=== PATIENT | male | born 1945 | race Caucasian/White ===

== ENCOUNTER → 2018-01-30 | Outpatient (CLI) | payer MEDICARE ==
[2018-01-30 14:29] LABS: HGB 16.4 gm/dL (13.0-17.5); MCH 33.6 pg (25.0-35.0); MCHC 32.1 g/dL (31.0-37.0); MCV 104.7 fL (80.0-100.0); Macrocytosis Slight; Mean Platelet Volume 7.8; Platelet Count 246 k/uL (150-450); RBC 4.87 m/uL (4.30-5.90); RDW 12.5 % (11.5-15.5); WBC 16.1 k/uL (3.8-10.6)
[2018-01-30 14:45] LABS: Anion Gap 7 mmol/L; Blood Urea Nitrogen 21 mg/dL (9-20); Carbon Dioxide 29 mmol/L (22-30); Chloride 104 mmol/L (98-107); Potassium 5.3 mmol/L (3.5-5.1); Sodium 140 mmol/L (137-145)
== END | disposition home or self-care (01) ==
LOC: LABPAT 14:00
PROVIDERS: ATTEND Internal Medicine Interventional Cardiology
DX: Z01.812 Encounter for preprocedural laboratory examination (principal); I11.0 Hypertensive heart disease with heart failure; I50.9 Heart failure, unspecified; I70.213 Atherosclerosis of native arteries of extremities with intermittent claudication, bilateral legs
CPT/HCPCS: 36415; 80051; 82565; 84520; 85027

== ENCOUNTER 2018-03-19 15:44 | Emergency (ER) | payer MEDICARE ==
[2018-03-19 15:49] VITALS: TEMP 98.1
[2018-03-19] MEDS ORDERED: LIDOCAINE/EPINEPHR/TETRACAINE 5 ML BOTTLE TOPICAL ONE (16:11)
[2018-03-19] MEDS ORDERED: SILVER NITRATE APPLICATOR 1 EACH STICK..EA. TOPICAL STA (16:22)
[2018-03-19] MEDS ORDERED: GELATIN SPONGE,ABSORB (LARGE) 1 EACH SPONGE TOPICAL STA (16:22)
[2018-03-19 17:11] LABS: Basophils % (A) 0 %; Eosinophils # (A) 0.2 k/uL (0-0.7); Eosinophils % (A) 2 %; HCT 42.7 % (39.0-53.0); HGB 14.3 gm/dL (13.0-17.5); Lymphocytes # (A) 2.3 k/uL (1.0-4.8); Lymphocytes % (A) 22 %; MCHC 33.4 g/dL (31.0-37.0); MCV 101.8 fL (80.0-100.0); Mean Platelet Volume 8.3; Monocytes # (A) 0.6 k/uL (0-1.0); Monocytes % (A) 6 %; Neutrophils # (A) 6.9 k/uL (1.3-7.7); Neutrophils % (A) 67 %; Platelet Count 220 k/uL (150-450); RBC 4.19 m/uL (4.30-5.90); RDW 12.3 % (11.5-15.5); WBC 10.3 k/uL (3.8-10.6)
[2018-03-19 17:21] LABS: Calcium 9.5 mg/dL (8.4-10.2); Total Bilirubin 0.3 mg/dL (0.2-1.3); Total Protein 6.9 g/dL (6.3-8.2)
--- NOTE | 2018-03-19 17:26 | ED ---
GI Bleed HPI - General Chief complaint: GI Bleed Stated complaint: rectal bleeding Time Seen by Provider: 03/19/18 15:53 Source: patient, RN notes reviewed, old records reviewed Mode of arrival: ambulatory Limitations: no limitations - History of Present Illness Initial comments: 72-year-old male presents emergency Department rectal bleeding for the past 2 hours. Patient reports she's had a hemorrhoid for the past few weeks. Patient has had Preparation H over the area for the past 3 days. Patient states that today he noticed some bleeding when he went to the bathroom.Patient denies any recent fever, chills, shortness of breath, chest pain, back pain, abdominal pain , nausea vomiting, numbness or tingling, dysuria or hematuria, constipation or diarrhea, headaches or visual changes, or any other current symptoms. - Related Data Home Medications Medication Instructions Recorded Confirmed Aspirin [Adult Low Dose Aspirin EC] 81 mg PO DAILY 03/19/18 03/19/18 Losartan [Cozaar] 50 mg PO DAILY 03/19/18 03/19/18 Metoprolol Tartrate [Lopressor] 12.5 mg PO BID 03/19/18 03/19/18 Naproxen Sodium [Aleve] 440 mg PO WEEKLY PRN 03/19/18 03/19/18 Simvastatin [Zocor] 80 mg PO HS 03/19/18 03/19/18 Previous Rx's Medication Instructions Recorded Hydrocortisone [Anusol-Hc] 30 gm TP BID #30 [email or web address] 03/19/18 Allergies Allergy/AdvReac Type Severity Reaction Status Date / Time meperidine [From Demerol] Allergy Nausea Verified 03/19/18 16:15 Review of Systems ROS Statement: Those systems with pertinent positive or pertinent negative responses have been documented in the HPI. ROS Other: All systems not noted in ROS Statement are negative. Past Medical History Past Medical History: Coronary Artery Disease (CAD), Hyperlipidemia, Hypertension Additional Past Medical History / Comment(s): hemorrhoids History of Any Multi-Drug Resistant Organisms: None Reported Past Surgical History: Coronary Bypass/CABG, Hernia Repair Past Psychological History: No Psychological Hx Reported Smoking Status: Current every day smoker Past Alcohol Use History: None Reported Past Drug Use History: None Reported General Exam - General Exam Comments Initial Comments: Well-appearing 72-year-old male. Limitations: no limitations General appearance: alert, in no apparent distress Head exam: Present: atraumatic, normocephalic, normal inspection Eye exam: Present: normal appearance, PERRL, EOMI. Absent: scleral icterus, conjunctival injection, periorbital swelling ENT exam: Present: normal exam, normal oropharynx, mucous membranes moist Neck exam: Present: normal inspection. Absent: tenderness, meningismus, lymphadenopathy Respiratory exam: Present: normal lung sounds bilaterally. Absent: respiratory distress, wheezes, rales, rhonchi, stridor Cardiovascular Exam: Present: regular rate, normal rhythm, normal heart sounds. Absent: systolic murmur, diastolic murmur, rubs, gallop, clicks GI/Abdominal exam: Present: soft, normal bowel sounds. Absent: distended, tenderness, guarding, rebound, rigid Rectal exam: Present: hemorrhoids (3 cm large thrombosed hemorrhoid with open area from bleeding.). Absent: normal inspection Extremities exam: Present: normal inspection, full ROM, normal capillary refill. Absent: tenderness, pedal edema, joint swelling, calf tenderness Back exam: Present: normal inspection Neurological exam: Present: alert, oriented X3, CN II-XII intact Psychiatric exam: Present: normal affect, normal mood Skin exam: Present: warm, dry, intact, normal color. Absent: rash Course Vital Signs 03/19/18 03/19/18 15:46 17:44 Temperature 98.1 F 98.1 F Pulse Rate 85 64 Respiratory 20 18 Rate Blood Pressure 156/87 129/81 O2 Sat by Pulse 96 94 L Oximetry Medical Decision Making - Medical Decision Making Is a 72-year-old male presents today with chief complaint of bleeding from rectum. Patient has a large hemorrhoid that is thrombosed. Examine the Patient with Dr. Shaver. When examined and he expressed blood from the hemorrhoid. Patient tolerated the procedure well. Hemoglobin and blood work stable. After the hemorrhoid is expressed is no further bleeding. I discussed that he may have some further slight bleeding to apply gauze over the area. Patient is discharged with Anusol cream. Given a referral for surgeon. He did state that he has not had a colonoscopy and Patient is 72 years old. Discussed that he needs follow-up with PCP in regards to maintenance testing and following up with colonoscopy. - Lab Data Result diagrams: 03/19/18 16:15 03/19/18 16:15 Lab Results 03/19/18 03/19/18 03/19/18 Range/Units 16:15 16:15 16:15 WBC 10.3 (3.8-10.6) k/uL RBC 4.19 L (4.30-5.90) m/uL Hgb 14.3 (13.0-17.5) gm/dL Hct 42.7 (39.0-53.0) % MCV 101.8 H (80.0-100.0) fL MCH 34.0 (25.0-35.0) pg MCHC 33.4 (31.0-37.0) g/dL RDW 12.3 (11.5-15.5) % Plt Count 220 (150-450) k/uL Neutrophils % 67 % Lymphocytes % 22 % Monocytes % 6 % Eosinophils % 2 % Basophils % 0 % Neutrophils # 6.9 (1.3-7.7) k/uL Lymphocytes # 2.3 (1.0-4.8) k/uL Monocytes # 0.6 (0-1.0) k/uL Eosinophils # 0.2 (0-0.7) k/uL Basophils # 0.0 (0-0.2) k/uL Sodium 141 (137-145) mmol/L Potassium 4.0 (3.5-5.1) mmol/L Chloride 109 H (98-107) mmol/L Carbon Dioxide 24 (22-30) mmol/L Anion Gap 8 mmol/L BUN 22 H (9-20) mg/dL Creatinine 1.05 (0.66-1.25) mg/dL Est GFR (CKD-EPI)AfAm 83 (>60 ml/min/1.73 sqM) Est GFR (CKD-EPI)NonAf 72 (>60 ml/min/1.73 sqM) Glucose 110 H (74-99) mg/dL Calcium 9.5 (8.4-10.2) mg/dL Total Bilirubin 0.3 (0.2-1.3) mg/dL AST 21 (17-59) U/L ALT 32 (21-72) U/L Alkaline Phosphatase 72 (38-126) U/L Total Protein 6.9 (6.3-8.2) g/dL Albumin 4.0 (3.5-5.0) g/dL Stool Occult Blood Positive (Negative) Disposition Clinical Impression: Thrombosed external hemorrhoid Disposition: HOME SELF-CARE Condition: Good Instructions: Thrombosed Hemorrhoid (ED) Additional Instructions: Patient advised to have close follow-up with primary care physician. Return to emergency department if any alarming signs or symptoms occur. Prescriptions: Hydrocortisone [Anusol-Hc] 30 gm TP BID #30 [email or web address] Is patient prescribed a controlled substance at d/c from ED?: No Referrals: Hayley White MD [Primary Care Provider] - 1-2 days Time of Disposition: 17:24
[2018-03-19 17:45] VITALS: BP 129/81; PULSE 64; RESP 18
== END 2018-03-19 17:45 | disposition home or self-care (01) ==
LOC: EC 15:44
DX: K64.5 Perianal venous thrombosis (principal); E78.5 Hyperlipidemia, unspecified; I10 Essential (primary) hypertension; I25.10 Atherosclerotic heart disease of native coronary artery without angina pectoris; F17.200 Nicotine dependence, unspecified, uncomplicated; Z88.5 Allergy status to narcotic agent; Z79.82 Long term (current) use of aspirin; Z79.899 Other long term (current) drug therapy; Z95.1 Presence of aortocoronary bypass graft
CPT/HCPCS: 36415; 80053; 82272; 85025; 99284

== ENCOUNTER 2018-03-24 13:15 | Day surgery (SDC) | payer MEDICARE ==
[2018-03-23 11:58] VITALS: BMI 28.0
[2018-03-24] MEDS ORDERED: LACTATED RINGERS 1,000 ML IV ONE (13:27)
[2018-03-24] MEDS ORDERED: LIDOCAINE 1% 20 ML VIAL (10MG/ML) FOR IV START INTRADERMA ONE (13:27)
[2018-03-24 13:38] VITALS: TEMP 96.9
[2018-03-24] MEDS ORDERED: PROPOFOL 10 MG/ML 20 ML VIAL IV ONE (15:08)
[2018-03-24 15:35] VITALS: RESP 16
--- NOTE | 2018-03-24 15:41 | P.PCN ---
Date of Procedure: 03/24/18 Procedure(s) Performed: procedure: Total colonoscopy and polypectomy. Preoperative diagnosis: Recent episode of rectal bleeding secondary to thrombosed external hemorrhoid. Postoperative diagnosis: 1. Small rectal polyp snared but no large polyps or cancer. 2. External hemorrhoid at the 5 O'clock lithotomy position with stigmata of bleeding but not actively bleeding at the time of this exam. 3. Diverticulosis with no evidence of acute diverticulitis or strictures. Preparation: HalfLytely prep. Sedation: Was provided by anesthesia. Brief clinical history: The patient is a 72-year-old male who had recent episode of rectal bleeding that proved to be related to a thrombosed external hemorrhoid. The patient went to the emergency room and received local care after it spontaneously bled. Since he had no prior colonoscopy, he was advised a colonoscopy to rule out other pathology. Procedure: With the patient on his left lateral decubitus position and after informed consent and adequate sedation, the perianal area was inspected and it did not show any fissures or fistulas. The external hemorrhoid was noted at the 5 O'clock lithotomy position with stigmata of bleeding but no active bleeding.there were no masses felt on digital rectal examination. The Olympus CFQ 160L video colonoscope was then inserted in the rectum in the usual fashion and advanced to the cecum. There was a small polyp in the rectum which I snared and retrieved by suction. No other polyps or tumors were seen. The mucosa appeared healthy. Multiple diverticular orifices were seen scattered both on the right and left side of the bowel. They were mostly small and more obvious on the right side but there was no evidence of acute diverticulitis or strictures. I retroflexed the endoscope in the rectum before the endoscope was withdrawn. The patient tolerated the procedure well. Plan: The patient was reassured. Discussed dietary measures. He will continue local care for hemorrhoids. I recommended repeat colonoscopy in 5 years. He will follow up with you as planned.
[2018-03-24 15:53] VITALS: BP 126/77; PULSE 65
== END 2018-03-24 16:10 | disposition home or self-care (01) ==
LOC: ORWHC2ENDO 13:15
DX: K57.30 Diverticulosis of large intestine without perforation or abscess without bleeding (principal); I25.10 Atherosclerotic heart disease of native coronary artery without angina pectoris; I10 Essential (primary) hypertension; E78.5 Hyperlipidemia, unspecified; Z95.1 Presence of aortocoronary bypass graft; J44.9 Chronic obstructive pulmonary disease, unspecified; F17.200 Nicotine dependence, unspecified, uncomplicated; Z79.1 Long term (current) use of non-steroidal anti-inflammatories (NSAID); Z79.82 Long term (current) use of aspirin; Z88.5 Allergy status to narcotic agent
CPT/HCPCS: 45385; J2704; 88305

== ENCOUNTER → 2018-03-24 | Outpatient (CLI) | payer MEDICARE ==
[2018-03-24 13:43] LABS: HCT 48.7 % (39.0-53.0); MCH 33.7 pg (25.0-35.0); MCHC 32.8 g/dL (31.0-37.0); MCV 102.9 fL (80.0-100.0); Macrocytosis Slight; Mean Platelet Volume 7.7; Platelet Count 253 k/uL (150-450); RBC 4.73 m/uL (4.30-5.90); RDW 12.4 % (11.5-15.5); WBC 11.7 k/uL (3.8-10.6)
[2018-03-24 13:56] LABS: Anion Gap 8 mmol/L; Blood Urea Nitrogen 18 mg/dL (9-20); Carbon Dioxide 28 mmol/L (22-30); Chloride 103 mmol/L (98-107); Potassium 5.3 mmol/L (3.5-5.1); Sodium 139 mmol/L (137-145)
== END | disposition home or self-care (01) ==
LOC: LABPAT 12:58
PROVIDERS: ATTEND Internal Medicine Interventional Cardiology
DX: Z01.812 Encounter for preprocedural laboratory examination (principal); I70.211 Atherosclerosis of native arteries of extremities with intermittent claudication, right leg
CPT/HCPCS: 36415; 80051; 82565; 84520; 85027

== ENCOUNTER 2018-04-29 06:22 | Day surgery (SDC) | payer MEDICARE ==
[2018-04-27 11:54] VITALS: BMI 28.0
[~2018-04-29 06:22] MED LIST: SODIUM CHLORIDE 0.9% 1,000 ML in EMPTY BAG 1 BAG IV ONE
[2018-04-29] MEDS ORDERED: SODIUM CHLORIDE 0.9% 1,000 ML IV ONE (06:43)
[2018-04-29 06:51] LABS: Basophils # (A) 0.1 k/uL (0-0.2); Basophils % (A) 0 %; Eosinophils # (A) 0.4 k/uL (0-0.7); Eosinophils % (A) 3 %; HGB 15.9 gm/dL (13.0-17.5); Lymphocytes # (A) 2.2 k/uL (1.0-4.8); Lymphocytes % (A) 17 %; MCH 33.9 pg (25.0-35.0); MCHC 33.2 g/dL (31.0-37.0); MCV 101.9 fL (80.0-100.0); Mean Platelet Volume 7.5; Monocytes # (A) 0.6 k/uL (0-1.0); Monocytes % (A) 5 %; Neutrophils # (A) 9.4 k/uL (1.3-7.7); Neutrophils % (A) 73 %; Platelet Count 255 k/uL (150-450); RBC 4.71 m/uL (4.30-5.90); RDW 12.6 % (11.5-15.5); WBC 12.9 k/uL (3.8-10.6)
[2018-04-29 07:05] LABS: Anion Gap 8 mmol/L; Blood Urea Nitrogen 20 mg/dL (9-20); Calcium 9.8 mg/dL (8.4-10.2); Carbon Dioxide 23 mmol/L (22-30); Chloride 108 mmol/L (98-107); Glucose 104 mg/dL (74-99); Sodium 139 mmol/L (137-145)
[2018-04-29 07:08] LABS: Potassium 5.1 mmol/L (3.5-5.1)
[2018-04-29] MEDS ORDERED: SODIUM CHLORIDE 0.9% 500 ML 500 ML with niCARdipine 6.25 MG, NITROGLYCERIN-D5W PMX 0.05... IV ONE ×4 (07:39)
[2018-04-29] MEDS ORDERED: MIDAZOLAM 2 MG/2 ML VIAL IVP ONE (07:40)
[2018-04-29] MEDS: fentaNYL (PF) 50 MCG/ML 2 ML AMP IVP ONE ×3 (07:41→09:04)
[2018-04-29] MEDS: LIDOCAINE 1% INJ 10MG/ML (20 ML MDV) SQ ONE ×2 (07:46→08:47)
[2018-04-29] MEDS ORDERED: HEPARIN SODIUM 1,000 UN/ML (10ML VL) IV ONE (07:50)
[2018-04-29] MEDS: MIDAZOLAM 2 MG/2 ML VIAL IV ONE ×2 (08:52→09:45)
[2018-04-29] MEDS: NITROGLYCERIN 1000MCG/10ML SYRINGE INTRAARTER ONE ×5 (09:39→11:10)
[2018-04-29] MEDS: niCARdipine Syringe (1,000 mcg/10 mL) INTRAARTER ONE ×4 (09:56→11:10)
[2018-04-29] MEDS: fentaNYL (PF) 50 MCG/ML 2 ML AMP IV ONE ×2 (10:53→11:09)
[2018-04-29] MEDS ORDERED: IOPAMIDOL-300 100ML BTL INJ ONE (11:10)
[2018-04-29] MEDS ORDERED: IOPAMIDOL-250 50ML BTL INTRAARTER ONE (11:10)
[2018-04-29] MEDS ORDERED: CLOPIDOGREL 75 MG TAB PO ONE (11:24)
[2018-04-29] MEDS ORDERED: NAPROXEN 250 MG TAB PO PRN (11:27)
[2018-04-29] MEDS ORDERED: SODIUM CHLORIDE 0.9% 1,000 ML IV SCH (11:30)
--- NOTE | 2018-04-29 11:57 | LTR ---
DATE OF SERVICE: 04/29/2018 RE: Randell Machado Dear Dr. White; Mr. Randell Machado underwent successful opening the right popliteal artery and right anterior tibial artery with good angiographic results and without any complication. Thank you for allowing us to participate in his care and please do not hesitate to call if you have any question or concern. Sincerely, MD MARTÍN Adorno / BOBN: [id number] /
--- NOTE | 2018-04-29 12:27 | AN ---
ANGIOGRAPHY REPORT DATE OF SERVICE: 04/29/2018 PERFORMING PHYSICIAN: Tai Mac MD, Television Receiver Analyzer. PROCEDURE PERFORMED: 1. Selective right anterior tibial and right popliteal angiogram. 2. 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 3. Intravascular ultrasound IVUS of the right popliteal. 4. An atherectomy of the right popliteal and right anterior tibial artery using the orbital atherectomy device from [employer]. 5. Successful balloon angioplasty of the right popliteal using 4.0 x 120 drug coated balloon with an excellent angiographic results. 6. Stenting of the right popliteal using 8 x 120 mm Zilver PTX drug-coated stent with an excellent angiographic results and reduction of stenosis from left from 100% to 0%. 7. Aspiration thrombectomy from the right anterior tibial artery. INDICATION: This is a pleasant 72-year-old gentleman who sees Dr. Quintanilla in the office as an outpatient and sees Dr. White as well, who was experiencing right leg intermittent claudication. He underwent a peripheral angiogram a few weeks ago and that revealed an occluded right popliteal as well as occluded right anterior tibial, posterior tibial, and peroneal. He was brought today to undergo an intervention. APPROACH: Left common femoral artery. COMPLICATION: None. LEVEL OF SEDATION: Moderate with sedation length of 210 minutes. PROCEDURE DESCRIPTION: After obtaining an informed consent, the patient was brought to the cardiac petroleum refinery laborer. The left common femoral artery was cannulated using micropuncture technique and the micropuncture wire passed easily. Then I did place a 6-Chinese sheath, 11 cm in the left common femoral artery. At that point, anticoagulation was initiated using heparin and the patient was given 8000 units of heparin with continuous ACT monitoring throughout the procedure. I did after that select the right SFA using a 5-Chinese rim catheter with .035 [employer] wire. The wire was advanced all the way to the right SFA. Subsequently, I did exchange my 11 cm 6-Chinese sheath into 70 cm 6-Chinese sheath using .035 [employer] wire. The tip of the long sheath was positioned in the proximal right SFA. At that point, I did selective right SFA, right popliteal, and right [id number] angiogram to assess the patency of the arteries from the knee and down. The angiogram revealed occluded right popliteal with occluded right tibioperoneal trunk and the ostium of the PT, peroneal, and anterior tibial. 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 At that point, I decided to attempt crossing the chronic total occlusion in a retrograde fashion. So, I did access the right anterior tibial just above the foot and I placed a 4-Chinese sheath with continuous infusion of heparin, verapamil, and nitroglycerin. At that point, I attempted crossing the chronic total occlusion also using an .014 system and I was unable. At that point, I decided to cross the chronic total occlusion in antegrade fashion, but at this time using .035 system. So I was able to cross the chronic total occlusion using .035 stiff Glidewire with the backup support of .035 CXI catheter. The wire was advanced to the right anterior tibial artery. At that point, I did at that point I did pull the wire out and I injected contrast through the CXI catheter in the anterior tibial artery to prove that I was in the true lumen. After that, I did do intravascular ultrasound of the right popliteal and right anterior tibial to prove that I was in the true lumen and not the false lumen. Subsequently I did do atherectomy of the right anterior tibial and right popliteal using the orbital atherectomy device from [facility]. The atherectomy was performed after I exchanged my .035 stiff Glidewire into 0.014 ViperWire. After that I did balloon angioplasty, initially using 4 mm balloon for the right anterior tibial and then 6 and 8 mm balloon for the right popliteal. The following angiogram showed haziness in the right popliteal artery with requiring of the artery and because of that, I decided to stent that segment. I did deploy 8 x 120 mm Zilver PTX drug-coated stent where the stent was positioned under fluoroscopy guidance and deployed after that. I post dilated the stent using 8 mm balloon. The following angiogram showed no reflow involving the right anterior tibial artery. At that point, I did aspiration thrombectomy using the export aspiration catheter with extraction of significant amount of plaque and thrombus. Multiple doses of nitroglycerin as well as nicardipine were given as well. After that, I did balloon angioplasty of the right anterior tibial artery using 4.0 x 120 mm drug-coated balloon which was intact balloon with the following angiogram showing excellent angiographic result with probable pulse in the right anterior tibial artery. At that point, the procedure was completed without any complication. I did after that exchange my long sheath into short sheath using .035 Glidewire. Then I did do selective left common femoral artery angiogram before the procedure was completed. POSTPROCEDURE MANAGEMENT: 1. Dual anti-platelet therapy. 2. Risk factors modifications. 3. Surveillance Doppler in 3 months at least. 4. Follow up with the patient. MMERIN / BOBN: [id number] /
[2018-04-29] MEDS ORDERED: fentaNYL (PF) 50 MCG/ML 2 ML AMP IV PRN (12:29)
--- NOTE | 2018-04-29 13:37 | IR ---
EXAMINATION TYPE: IR stent intravas non coronary DATE OF EXAM: 04/29/2018 COMPARISON: NONE HISTORY: Peripheral vascular occlusive disease. Fluoroscopy was provided to the referring clinician. See dictated report from cardiology. 76.5 minut es of fluoroscopy utilized.
[2018-04-29] MEDS ORDERED: HYDROcodone/APAP 5-325MG 1 EACH TAB PO PRN (18:19)
[2018-04-29] MEDS: METOPROLOL TARTRATE 12.5 MG TAB PO SCH (20:08)
[2018-04-29] MEDS ORDERED: ATORVASTATIN 40 MG TAB PO SCH (21:00)
[2018-04-30 03:03] VITALS: TEMP 97.5
[2018-04-30 07:40] LABS: Anion Gap 5 mmol/L; Blood Urea Nitrogen 14 mg/dL (9-20); Calcium 9.4 mg/dL (8.4-10.2); Carbon Dioxide 27 mmol/L (22-30); Chloride 106 mmol/L (98-107); Glucose 115 mg/dL (74-99); Potassium 4.8 mmol/L (3.5-5.1); Sodium 138 mmol/L (137-145)
[2018-04-30 07:48] LABS: Basophils % (A) 0 %; Eosinophils # (A) 0.3 k/uL (0-0.7); Eosinophils % (A) 2 %; HCT 46.4 % (39.0-53.0); Lymphocytes # (A) 1.9 k/uL (1.0-4.8); Lymphocytes % (A) 16 %; MCH 33.2 pg (25.0-35.0); MCHC 32.4 g/dL (31.0-37.0); MCV 102.7 fL (80.0-100.0); Macrocytosis Slight; Mean Platelet Volume 7.5; Monocytes # (A) 0.7 k/uL (0-1.0); Monocytes % (A) 5 %; Neutrophils # (A) 9.1 k/uL (1.3-7.7); Neutrophils % (A) 75 %; Platelet Count 217 k/uL (150-450); RBC 4.52 m/uL (4.30-5.90); RDW 12.5 % (11.5-15.5); WBC 12.2 k/uL (3.8-10.6)
[2018-04-30 08:44] VITALS: BP 126/67; PULSE 86; RESP 18
[2018-04-30] MEDS ORDERED: LOSARTAN 50 MG TAB PO SCH (09:00)
[2018-04-30] MEDS ORDERED: ASPIRIN 81 MG PO SCH (09:00)
[2018-04-30] MEDS ORDERED: CLOPIDOGREL 75 MG TAB PO SCH (09:00)
[2018-04-30] MEDS ORDERED: VIT A,C & E-LUTEIN-MINERALS 1 EACH TAB PO SCH (09:00)
[2018-04-30] MEDS: METOPROLOL TARTRATE 12.5 MG TAB PO SCH (09:08)
--- NOTE | 2018-04-30 09:19 | DS ---
DISCHARGE SUMMARY ADMISSION DATE: April 29, 2018 DISCHARGE DATE: April 30, 2018 BRIEF HISTORY: This is a pleasant 72-year-old gentleman who sees Dr. Quintanilla in the office as an outpatient who was diagnosed with critical limb ischemia with a resting pain/numbness of the right leg. He underwent a peripheral angiogram and that revealed an occluded right popliteal as well as occluded anterior tibial, posterior tibial, and peroneal. 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 On followup with him today, he does have a good pulse in the right dorsalis pedis. The left groin is soft and nontender and without any bruises. The patient is going to be discharged home on dual antiplatelet therapy including aspirin and Plavix as well as a statin. The patient will be followed up with Dr. Quintanilla in the office in a week for a Doppler to be done in 3 months. MMERIN / BOBN: [id number] /
== END 2018-04-30 09:15 | disposition home or self-care (01) ==
LOC: CATHCVL 06:22 → 3SCARD 16:04 → CATHCVL 04-30 09:15
PROVIDERS: ATTEND Internal Medicine Interventional Cardiology
DX: I70.211 Atherosclerosis of native arteries of extremities with intermittent claudication, right leg (principal); I10 Essential (primary) hypertension; E78.5 Hyperlipidemia, unspecified; Z87.891 Personal history of nicotine dependence; I71.4 Abdominal aortic aneurysm, without rupture; Z79.82 Long term (current) use of aspirin; Z79.899 Other long term (current) drug therapy; Z88.5 Allergy status to narcotic agent
CPT/HCPCS: 37227; 37229; 37252; 80048 ×2; 85025 ×2; C1894 ×3; C1887; C1769 ×8; C1714; C1725 ×3; C1753; C2623; C1874; J2250; J1644 ×2; J2001; J3010; Q9966; Q9967

== ENCOUNTER → 2019-01-18 | Outpatient (CLI) | payer MEDICARE ==
[2019-01-18 16:43] LABS: LDL Cholesterol,Calculated 69.2 mg/dL (0.0-131.0); VLDL Calculation 14.8 mg/dL (5.00-40.00)
== END | disposition home or self-care (01) ==
LOC: LABWHC1 07:35
PROVIDERS: ATTEND Internal Medicine Cardiovascular Disease
DX: E78.2 Mixed hyperlipidemia (principal)
CPT/HCPCS: 36415; 80061; 84450; 84460

== ENCOUNTER → 2020-01-19 | Outpatient (CLI) | payer MEDICARE ==
[2020-01-19 18:06] LABS: Chol/HDL Ratio 3.04; LDL Cholesterol,Calculated 80.2 mg/dL (0.0-131.0); VLDL Calculation 13.8 mg/dL (5.00-40.00)
== END | disposition home or self-care (01) ==
LOC: LABWHC1 08:02
PROVIDERS: ATTEND Internal Medicine Cardiovascular Disease
DX: E78.2 Mixed hyperlipidemia (principal)
CPT/HCPCS: 36415; 80061; 84450; 84460

== ENCOUNTER → 2021-07-09 | Outpatient (CLI) | payer MEDICARE ==
[2021-07-09 14:59] LABS: ALT 22 U/L (10-49); AST 20 U/L (14-35); Chol/HDL Ratio 2.89 Ratio; LDL Cholesterol,Calculated 85.4 mg/dL (0.0-131.0); VLDL Calculation 18.02 mg/dL (5.00-40.00)
== END | disposition home or self-care (01) ==
LOC: LABWHC1 09:10
PROVIDERS: ATTEND Internal Medicine Cardiovascular Disease
DX: E78.2 Mixed hyperlipidemia (principal)
CPT/HCPCS: 36415; 80061; 84450; 84460

== ENCOUNTER 2022-01-26 21:44 | Inpatient (IN) | payer MEDICARE ==
--- NOTE | 2022-01-26 23:34 | US ---
EXAMINATION TYPE: US venous doppler duplex LE RT DATE OF EXAM: 01/26/2022 11:13 PM COMPARISON: NONE CLINICAL HISTORY: pain/cramping in calf. SIDE PERFORMED: Right TECHNIQUE: The lower extremity deep venous system is examined utilizing real time linear array sonog acacia with graded compression, doppler sonography and color-flow sonography. VESSELS IMAGED: Common Femoral Vein Deep Femoral Vein Greater Saphenous Vein * Femoral Vein Popliteal Vein Small Saphenous Vein * Proximal Calf Veins (* superficial vessels) Right Leg: Negative for DVT IMPRESSION: No sign of deep vein thrombosis in the right leg.
--- NOTE | 2022-01-27 00:32 | ED ---
General Adult HPI - General Chief complaint: Extremity Problem,Nontraumatic Stated complaint: Rt Leg Numbness Time Seen by Provider: 01/26/22 23:50 Source: patient, RN notes reviewed Mode of arrival: ambulatory Limitations: no limitations - History of Present Illness Initial comments: 76-year-old male presents to the emergency Department with complaints of right lower extremity pain. States he has marketed right leg pain that he describes as a throbbing sensation and cramping discomfort in his calf that worsens with weightbearing activity. States his right foot feels cool to the touch and his toes appeared discolored. States his symptoms worsen with ambulation, however are unpredictable. States he can ambulate 10 steps and then experienced d iscomfort, or walk 50-60 feet before pain occurs. Reports thorough workup with his groundman in November. Does have a vascular stent in the right lower extremity. Denies any injury or trauma. No fever, chills, headache, dizziness, chest pain, chest tightness, shortness of breath, abdominal pain, nausea, vomiting, diarrhea, or dysuria. - Related Data Home Medications Medication Instructions Recorded Confirmed Aspirin [Adult Low Dose Aspirin EC] 81 mg PO DAILY 03/19/18 04/29/18 Losartan [Cozaar] 50 mg PO QAM 03/19/18 04/29/18 Metoprolol Tartrate [Lopressor] 12.5 mg PO BID 03/19/18 04/29/18 Naproxen Sodium [Aleve] 440 mg PO DAILY PRN 03/19/18 04/29/18 Simvastatin [Zocor] 80 mg PO HS 03/19/18 04/29/18 Multivit-Min/FA/Lycopen/Lutein 1 each PO DAILY 04/27/18 04/29/18 [Centrum Silver Men Tablet] Previous Rx's Medication Instructions Recorded Clopidogrel [Plavix] 75 mg PO DAILY #90 tab 04/30/18 Clopidogrel [Plavix] 75 mg PO DAILY #90 tablet 04/30/18 Allergies Allergy/AdvReac Type Severity Reaction Status Date / Time meperidine [From Demerol] AdvReac Nausea Verified 01/26/22 22:30 Review of Systems ROS Statement: Those systems with pertinent positive or pertinent negative responses have been documented in the HPI. ROS Other: All systems not noted in ROS Statement are negative. Past Medical History Past Medical History: Coronary Artery Disease (CAD), Hyperlipidemia, Hypertension, Vascular Disorder Additional Past Medical History / Comment(s): hemorrhoids,cramping rt leg with activity History of Any Multi-Drug Resistant Organisms: None Reported Past Surgical History: Adenoidectomy, Coronary Bypass/CABG, Heart Catheterization, Hernia Repair, Tonsillectomy Additional Past Surgical History / Comment(s): Aortogram, ibrahima inguinal hernias,lung bx Past Anesthesia/Blood Transfusion Reactions: No Reported Reaction Past Psychological History: No Psychological Hx Reported Past Alcohol Use History: None Reported Past Drug Use History: None Reported - Past Family History Mother Family Medical History: Cancer General Exam Limitations: no limitations (Well-developed, well-nourished male in no acute distress. Initial temperature 98.0, pulse 67, respirations 20, blood pressure 141/84, pulse ox 95% on room air.) General appearance: alert, in no apparent distress Eye exam: Present: normal appearance, PERRL, EOMI. Absent: scleral icterus, conjunctival injection, periorbital swelling Respiratory exam: Present: normal lung sounds bilaterally. Absent: respiratory distress, wheezes, rales, rhonchi, stridor Cardiovascular Exam: Present: regular rate, normal rhythm, normal heart sounds. Absent: systolic murmur, diastolic murmur, rubs, gallop, clicks GI/Abdominal exam: Present: soft, normal bowel sounds. Absent: distended, tend erness, guarding, rebound, rigid Left Upper Leg exam: Present: normal inspection, full ROM Lower Leg exam: Present: normal inspection, full ROM. Absent: tenderness, swelling Foot/Toe exam: Present: normal inspection, full ROM. Absent: tenderness, swelling Neurovascular tendon exam: Present: no vascular compromise. Absent: pulse deficit, abnormal cap refill, motor deficit, sensory deficit, tendon deficit, extremity cold to touch, pallor Right Upper Leg exam: Present: normal inspection, full ROM. Absent: tenderness, swelling Knee exam: Present: normal inspection, full ROM. Absent: tenderness, swelling Lower Leg exam: Present: normal inspection, full ROM, tenderness (Mild tenderness upon palpation of the posterior aspect of the left lower leg). Absent: swelling, ecchymosis, erythema, Homans' sign Ankle exam: Present: normal inspection, full ROM. Absent: swelling Neurovascular tendon exam: Present: pulse deficit (Unable to palpate pedal pulse; unsuccessful Doppler.), abnormal cap refill (Slightly franca appearance to the distal phalanges), extremity cold to touch (Right foot cooler to touch when compared with the left) Back exam: Present: normal inspection, full ROM Neurological exam: Present: alert, oriented X3 Psychiatric exam: Present: normal affect, normal mood Course Vital Signs 01/26/22 22:26 Temperature 98.0 F Pulse Rate 67 Respiratory 20 Rate Blood Pressure 141/84 O2 Sat by Pulse 95 Oximetry - Reevaluation(s) Reevaluation #1: 01/27/22 02:02 Plan of care was discussed with patient including likelihood of admission to the hospital given inability to palpate pedal pulse. He is agreeable with this and is pain-free while at rest. Laboratory studies are pending. Reevaluation #2: 01/27/22 04:45 Patient remains pain-free. He is updated on findings from CT. Heparin will be initiated. Medical Decision Making - Medical Decision Making This is a 76-year-old male with an extensive history of peripheral vascular disease presents to the emergency department for evaluation of right lower extremity pain. Upon exam, patient is well-appearing and in no acute distress while at rest. Unable to palpate, nor obtain doppler, pedal pulse in the right foot. There is faint discoloration to the toes on the affected extremity. Laboratory studies were obtained and are overall unremarkable. CTA of the right lower extremity shows multiple areas of stenosis and the thrombosed popliteal artery stent. There is no flow in the distal anterior tibial artery and minimal arterial flow in the posterior tibial artery at the ankle. Heparin was initiated and patient will be admitted to the hospital. Given that his previous peripheral vascular stent was placed by cardiology they will be consult for further evaluation and treatment. I did speak with Dr. Garcia who agrees to accept this admission. This patient's care was discussed with my attending, Dr. Gonzales. - Lab Data Result diagrams: 01/27/22 01:11 01/27/22 01:11 Lab Results 01/27/22 01/27/22 01/27/22 Range/Units 01:11 01:11 01:11 WBC 11.4 H (3.8-10.6) k/uL RBC 4.67 (4.30-5.90) m/uL Hgb 16.0 (13.0-17.5) gm/dL Hct 48.4 (39.0-53.0) % MCV 103.8 H (80.0-100.0) fL MCH 34.2 (25.0-35.0) pg MCHC 32.9 (31.0-37.0) g/dL RDW 12.1 (11.5-15.5) % Plt Count 220 (150-450) k/uL MPV 8.4 Neutrophils % 60 % Lymphocytes % 26 % Monocytes % 7 % Eosinophils % 5 % Basophils % 1 % Neutrophils # 6.8 (1.3-7.7) k/uL Lymphocytes # 2.9 (1.0-4.8) k/uL Monocytes # 0.8 (0-1.0) k/uL Eosinophils # 0.6 (0-0.7) k/uL Basophils # 0.1 (0-0.2) k/uL Macrocytosis Slight PT 10.4 (9.0-12.0) sec INR 0.9 (<1.2) APTT 25.9 (22.0-30.0) sec Sodium 139 (137-145) mmol/L Potassium 4.4 (3.5-5.1) mmol/L Chloride 105 (98-107) mmol/L Carbon Dioxide 24 (22-30) mmol/L Anion Gap 10 mmol/L BUN 25 H (9-20) mg/dL Creatinine 0.88 (0.66-1.25) mg/dL Est GFR (CKD-EPI)AfAm >90 (>60 ml/min/1.73 sqM) Est GFR (CKD-EPI)NonAf 84 (>60 ml/min/1.73 sqM) Glucose 102 H (74-99) mg/dL Calcium 9.8 (8.4-10.2) mg/dL Total Bilirubin 0.2 (0.2-1.3) mg/dL AST 26 (17-59) U/L ALT 22 (4-49) U/L Alkaline Phosphatase 102 (38-126) U/L Troponin I (0.000-0.034) ng/mL Total Protein 7.2 (6.3-8.2) g/dL Albumin 4.3 (3.5-5.0) g/dL 08/28/22 Range/Units 01:11 WBC (3.8-10.6) k/uL RBC (4.30-5.90) m/uL Hgb (13.0-17.5) gm/dL Hct (39.0-53.0) % MCV (80.0-100.0) fL MCH (25.0-35.0) pg MCHC (31.0-37.0) g/dL RDW (11.5-15.5) % Plt Count (150-450) k/uL MPV Neutrophils % % Lymphocytes % % Monocytes % % Eosinophils % % Basophils % % Neutrophils # (1.3-7.7) k/uL Lymphocytes # (1.0-4.8) k/uL Monocytes # (0-1.0) k/uL Eosinophils # (0-0.7) k/uL Basophils # (0-0.2) k/uL Macrocytosis PT (9.0-12.0) sec INR (<1.2) APTT (22.0-30.0) sec Sodium (137-145) mmol/L Potassium (3.5-5.1) mmol/L Chloride (98-107) mmol/L Carbon Dioxide (22-30) mmol/L Anion Gap mmol/L BUN (9-20) mg/dL Creatinine (0.66-1.25) mg/dL Est GFR (CKD-EPI)AfAm (>60 ml/min/1.73 sqM) Est GFR (CKD-EPI)NonAf (>60 ml/min/1.73 sqM) Glucose (74-99) mg/dL Calcium (8.4-10.2) mg/dL Total Bilirubin (0.2-1.3) mg/dL AST (17-59) U/L ALT (4-49) U/L Alkaline Phosphatase (38-126) U/L Troponin I <0.012 (0.000-0.034) ng/mL Total Protein (6.3-8.2) g/dL Albumin (3.5-5.0) g/dL - Radiology Data Radiology results: report reviewed, image reviewed CTA of the right lower extremity was obtained. Report was reviewed in its entirety. Impression per Dr. Sullivan is diffuse atherosclerotic vascular disease. 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 Multifocal plaque formation in the form oral artery and multiple areas of stenosis up to 50%. 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 There is popliteal artery stent which is thrombosed. There are some collateral vessels of the knee and minimal filling of the anterior and posterior tibial arteries of the calf. No flow in the distal anterior artery at the ankle. Minimal arterial flow in the posterior tibial artery at the ankle. Venous Doppler study of the right lower extremity was obtained. Report was reviewed in its entirety. Impression per Dr. Sullivan is no sign of deep vein thrombosis on the right leg. Disposition Clinical Impression: Right leg claudication, Decreased dorsalis pedis pulse Disposition: ADMITTED IP TO THIS [facility] Condition: Serious Referrals: Hayley White MD [Primary Care Provider] - 1-2 days Decision Date: 01/27/22 Decision Time: 04:48
[2022-01-27 01:40] LABS: Basophils # (A) 0.1 k/uL (0-0.2); Basophils % (A) 1 %; Eosinophils # (A) 0.6 k/uL (0-0.7); Eosinophils % (A) 5 %; HCT 48.4 % (39.0-53.0); Lymphocytes # (A) 2.9 k/uL (1.0-4.8); Lymphocytes % (A) 26 %; MCH 34.2 pg (25.0-35.0); MCHC 32.9 g/dL (31.0-37.0); MCV 103.8 fL (80.0-100.0); Macrocytosis Slight; Mean Platelet Volume 8.4; Monocytes # (A) 0.8 k/uL (0-1.0); Monocytes % (A) 7 %; Neutrophils # (A) 6.8 k/uL (1.3-7.7); Neutrophils % (A) 60 %; Platelet Count 220 k/uL (150-450); RBC 4.67 m/uL (4.30-5.90); RDW 12.1 % (11.5-15.5); WBC 11.4 k/uL (3.8-10.6)
[2022-01-27 01:49] LABS: INR 0.9 (<1.2); Partial Thromboplastin Time 25.9 sec (22.0-30.0); Prothrombin Time 10.4 sec (9.0-12.0)
[2022-01-27 02:14] LABS: ALT 22 U/L (4-49); AST 26 U/L (17-59); African American GFR (CKD) >90 (>60 ml/min/1.73 sqM); Albumin 4.3 g/dL (3.5-5.0); Alkaline Phosphatase 102 U/L (38-126); Anion Gap 10 mmol/L; Blood Urea Nitrogen 25 mg/dL (9-20); Calcium 9.8 mg/dL (8.4-10.2); Carbon Dioxide 24 mmol/L (22-30); Chloride 105 mmol/L (98-107); Glucose 102 mg/dL (74-99); Non-African American GFR(CKD) 84 (>60 ml/min/1.73 sqM); Potassium 4.4 mmol/L (3.5-5.1); Sodium 139 mmol/L (137-145); Total Bilirubin 0.2 mg/dL (0.2-1.3); Total Protein 7.2 g/dL (6.3-8.2)
[2022-01-27] MEDS ORDERED: RX INFO: IV CONTRAST WAS GIVEN 1 EACH MISC MISCELLANE PRN (02:24)
--- NOTE | 2022-01-27 03:39 | CT ---
EXAMINATION TYPE: CT angio lower extremity RT DATE OF EXAM: 01/27/2022 COMPARISON: HISTORY: RLE pain, discoloration, diminished pedal pulse. CT DLP: 1537.8 mGycm Automated exposure control for dose reduction was used. CONTRAST: Performed with IV Contrast, patient injected with 100ml mL of Isovue 370. Images obtained from the level of the kidneys to the bottom of the right foot with the IV contrast. T here are 3-D post processed images. There is 3.8 cm aneurysm of the lower abdominal aorta at the bifurcation. The left common iliac arter y measures 2.4 cm. There is arterial flow in the right internal and external iliac artery. There is a rterial flow in the right femoral artery there is diffuse plaque formation in the right femoral arter y. 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 There is occlusion of the femoral artery at the lower end of the aneurysm. There is a stent in the poplite al artery which does not appear to opacify. There are some collateral vessels around the knee. There is some arterial flow demonstrated in the tibial artery and the posterior tibial artery. There is sandoval ited arterial opacification of the anterior tibial artery. At the ankle there is minimal arterial darron w demonstrated in the posterior tibial artery. There is no flow seen in the dorsalis pedis artery. IMPRESSION: Diffuse atherosclerotic vascular disease. Aneurysm of the lower abdominal aorta extending into the co mmon iliac arteries. Multifocal plaque formation in the femoral artery and multiple areas of stenosis up to 50%. 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 There is thrombosis of the distal femo ral artery at the lower and of the aneurysm. There is popliteal artery stent which is thrombosed. The re are some collateral vessels at the knee and minimal filling of the anterior and posterior tibial a rteries of the calf. No flow in the distal anterior tibial artery at the ankle. Minimal arterial flow in the posterior tibial artery at the ankle.
[2022-01-27] MEDS ORDERED: HEPARIN SODIUM 1,000 UN/ML (10ML VL) IV PRN (04:15)
[2022-01-27] MEDS ORDERED: HEPARIN SODIUM 1,000 UN/ML (10ML VL) IV ONE (04:15)
[2022-01-27] MEDS: HEPARIN SOD,PORK IN 0.45% NACL 25,000 UNIT in 0.45% NACL 1 250ML.BAG IV SCH (04:48)
[2022-01-27] MEDS ORDERED: ACETAMINOPHEN TAB 325 MG TAB PO PRN (04:56)
[2022-01-27] MEDS ORDERED: NALOXONE 0.4 MG/ML 1 ML VIAL IV PRN (04:56)
[2022-01-27] MEDS ORDERED: ONDANSETRON 4 MG/2 ML VIAL IVP PRN (04:56)
[2022-01-27] MEDS: SODIUM CHLORIDE 0.9% 1,000 ML IV SCH ×2 (08:15→17:34)
--- NOTE | 2022-01-27 11:41 | P.HPIM ---
History of Present Illness H&P Date: 01/27/22 Randell Machado, is a 76-year-old male who presented to [facility] emergency room with a chief complaint of right lower extremity pain, patient stated that he has a throbbing and cramping pain in the right calf radiating down to the foot exacerbated by activity and walking. 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 Patient was started on IV heparin in the emergency room he was admitted to medical floor for further evaluation and treatment Past medical history is significant for history of peripheral vascular disease with history of angioplasty and stent placement to the right lower extremity by Dr. Black, history of coronary artery disease with coronary artery bypass graft surgery 9 years ago, history of hypertension, history of hyperlipidemia, history of continued tobacco use. On review of systems patient is complaining of right lower extremity pain when he stands up or tries to walk, otherwise he denies any complaints at this time there is no fever or chills no headache or dizziness no chest pain no shortness of breath no cough no nausea or vomiting no abdominal pain no diarrhea and no urinary symptoms. Past Medical History Past Medical History: Coronary Artery Disease (CAD), Hyperlipidemia, Hypertension, Vascular Disorder Additional Past Medical History / Comment(s): hemorrhoids,cramping rt leg with activity History of Any Multi-Drug Resistant Organisms: None Reported Past Surgical History: Adenoidectomy, Coronary Bypass/CABG, Heart Catheterization, Hernia Repair, Tonsillectomy Additional Past Surgical History / Comment(s): Aortogram, ibrahima inguinal hernias,lung bx, stent in right leg Past Anesthesia/Blood Transfusion Reactions: No Reported Reaction Smoking Status: Current some day smoker - Past Family History Mother Family Medical History: Cancer Medications and Allergies Home Medications Medication Instructions Recorded Confirmed Type Aspirin [Adult Low Dose Aspirin EC] 81 mg PO DAILY 03/19/18 04/29/18 History Losartan [Cozaar] 50 mg PO QAM 03/19/18 04/29/18 History Metoprolol Tartrate [Lopressor] 12.5 mg PO BID 03/19/18 04/29/18 History Naproxen Sodium [Aleve] 440 mg PO DAILY PRN 03/19/18 04/29/18 History Simvastatin [Zocor] 80 mg PO HS 03/19/18 04/29/18 History Multivit-Min/FA/Lycopen/Lutein 1 each PO DAILY 04/27/18 04/29/18 History [Centrum Silver Men Tablet] Clopidogrel [Plavix] 75 mg PO DAILY #90 tab 04/30/18 Rx Clopidogrel [Plavix] 75 mg PO DAILY #90 tablet 04/30/18 Rx Allergies Allergy/AdvReac Type Severity Reaction Status Date / Time meperidine [From Demerol] AdvReac Nausea Verified 01/26/22 22:30 Physical Exam Vitals: Vital Signs Temp Pulse Pulse Resp BP BP Pulse Ox 01/27/22 08:15 97.9 F 58 L 16 138/85 93 L 01/27/22 06:56 97.7 F 61 16 152/94 93 L 01/27/22 05:10 68 18 137/85 97 01/26/22 22:26 98.0 F 67 20 141/84 95 Intake and Output 01/26/22 01/27/22 01/27/22 22:59 06:59 14:59 Output Total 0 Balance 0 Output: Urine 0 Stool 0 Urine/Stool Mix 0 Emesis 0 Other: # Voids 0 Weight 86.636 kg 85.1 kg In general patient is alert and oriented x 3 in no distress HEENT head normocephalic and atraumatic Neck is supple no JVD no goiter no lymphadenopathy no carotid bruit Chest examination is clear to auscultation no crackles no wheezing Cardiac exam reveals regular heart sounds S1 and S2 no gallops no murmurs Abdomen is soft nontender no organomegaly with normal bowel sounds Extremity exam reveals no edema no cyanosis or clubbing, there are no palpable pulses in the dorsalis pedis or posterior tibialis on the right Neurological examination reveals no gross focal deficits Results CBC & Chem 7: 01/27/22 01:11 01/27/22 01:11 Labs: Abnormal Lab Results - Last 24 Hours (Table) 01/27/22 01/27/22 Range/Units 01:11 01:11 WBC 11.4 H (3.8-10.6) k/uL MCV 103.8 H (80.0-100.0) fL BUN 25 H (9-20) mg/dL Glucose 102 H (74-99) mg/dL Thrombosis Risk Factor Assmnt - Choose All That Apply Each Factor Represents 1 point: Medical pt on bed rest Each Risk Factor Represents 2 Points: Patient confined to bed Each Risk Factor Represents 3 Points: Age 75 years or older Other congenital or acquired thrombophilia - If yes, enter type in comment: No Thrombosis Risk Factor Assessment Total Risk Factor Score: 6 Thrombosis Risk Factor Assessment Level: High Risk Assessment and Plan Plan: Right lower extremity pain Right leg claudication, with absent pulses in the right foot Underlying history of coronary artery disease with history of coronary artery bypass graft surgery 9 years ago Underlying history of hypertention Underlying history of hyperlipidemia Underlying history of continued tobacco use patient was counseled in length in regards to smoking cessation At this time patient is admitted to telemetry floor Home medications reviewed and reordered He was started on IV heparin Cardiology consultation requested For GI prophylaxis we'll add Protonix
--- NOTE | 2022-01-27 11:45 | P.CRDCN ---
History of Present Illness Consult date: 01/27/22 History of present illness: History of Present Illness: The patient is a 76-year-old male, followed by Dr. Quintanilla with a history of CABG done about 9 years ago, history of PAD, chronic tobacco use, hypertension and hyperlipidemia who presented with symptoms of right lower extremity claudication, numbness and cold feeling. He has underwent stenting of his right lower extremity by Dr. Mac in 2018 and has been stable until Friday when he started to work outside and felt discomfort in the right leg that resolved after rest but reoccurred yesterday when he was at work with intermittent claudication a different distance. He felt some numbness. 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 There is some collaterals filling the anterior and the posterior tibial, no flow in the distal anterior tibial was minimal flow in the posterior tibial. His ultrasound of the lower extremities showed no evidence of DVT. The patient has chronic mild dyspnea on exertion but no exertional chest discomfort. According to him he underwent recent cardiac workup by Dr. Quintanilla and no significant abnormalities were reported. He has no significant peripheral edema, no PND or orthopnea. The status of his ejection fraction is not available to me. Medications: Simvastatin 80 mg daily, Lopressor 12-1/2 mg twice a day, losartan 50 mg daily, aspirin once a day, Plavix 75 mg daily Review of Systems: Respiratory: He has history of chronic mild dyspnea on exertion GI: No nausea or vomiting . No history of peptic ulcer disease. No recent GI bleed. : No hematuria or dysuria. Nervous System: No stroke or seizure. Physical Examination: 76-year-old male, alert and oriented no apparent distress,Blood pressure 138/80, Heart rate 60 Head: Normocephalic. Eyes: Sclerae nonicteric. Neck: Good carotid upstroke, no bruit, no jugular venous distention. Lungs: Clear to auscultation. Heart: Regular rate and rhythm, S1-S2, no S3, no rub. Systolic ejection murmur. Abdomen: Soft nontender, positive bowel sounds no organomegaly. Extremities: No edema, decreased right femoral and popliteal pulse was very diminished dorsalis pedis and posterior tibial, almost not felt was coldness of the foot, no discoloration. Labs: Hemoglobin 16, potassium 4.4, BUN 25, creatinine 0.88, troponin less than 0.012 Impression: 1. Severe PAD with severe claudication on the right side with occluded poplite al stent 2. History of CAD, post CABG, appears to be stable 3. History of hypertension 4. History of hyperlipidemia 5. History of smoking Plan: 1. IV heparin 2. Restart statin 3. Obtain the workup that was done in the office 4. The patient with require peripheral angiography, he will be seen by Dr. Barker tomorrow to proceed with the procedure 5. Depending on the results of the testing further recommendations will be made, I discussed the recommendation with the patient. Thank you for this consult we will follow with you. Past Medical History Past Medical History: Coronary Artery Disease (CAD), Hyperlipidemia, Hypertension, Vascular Disorder Additional Past Medical History / Comment(s): hemorrhoids,cramping rt leg with activity History of Any Multi-Drug Resistant Organisms: None Reported Past Surgical History: Adenoidectomy, Coronary Bypass/CABG, Heart Cathete rization, Hernia Repair, Tonsillectomy Additional Past Surgical History / Comment(s): Aortogram, ibrahima inguinal hernias,lung bx, stent in right leg Past Anesthesia/Blood Transfusion Reactions: No Reported Reaction Smoking Status: Current some day smoker - Past Family History Mother Family Medical History: Cancer Medications and Allergies Home Medications Medication Instructions Recorded Confirmed Type Aspirin [Adult Low Dose Aspirin EC] 81 mg PO DAILY 03/19/18 04/29/18 History Losartan [Cozaar] 50 mg PO QAM 03/19/18 04/29/18 History Metoprolol Tartrate [Lopressor] 12.5 mg PO BID 03/19/18 04/29/18 History Naproxen Sodium [Aleve] 440 mg PO DAILY PRN 03/19/18 04/29/18 History Simvastatin [Zocor] 80 mg PO HS 03/19/18 04/29/18 History Multivit-Min/FA/Lycopen/Lutein 1 each PO DAILY 04/27/18 04/29/18 History [Centrum Silver Men Tablet] Clopidogrel [Plavix] 75 mg PO DAILY #90 tab 04/30/18 Rx Clopidogrel [Plavix] 75 mg PO DAILY #90 tablet 04/30/18 Rx Allergies Allergy/AdvReac Type Severity Reaction Status Date / Time meperidine [From Demerol] AdvReac Nausea Verified 01/26/22 22:30 Physical Exam Vitals: Vital Signs Temp Pulse Pulse Resp BP BP Pulse Ox 01/27/22 08:15 97.9 F 58 L 16 138/85 93 L 01/27/22 06:56 97.7 F 61 16 152/94 93 L 01/27/22 05:10 68 18 137/85 97 01/26/22 22:26 98.0 F 67 20 141/84 95 Intake and Output 01/26/22 01/27/22 01/27/22 22:59 06:59 14:59 Intake Total 61.667 Output Total 0 Balance 0 61.667 Intake: Intake, IV Titration 61.667 Amount Heparin Sod,Pork in 0.45% 61.667 NaCl 25,000 unit In 0.45 % NaCl 1 250ml.bag @ 11. 5425 UNITS/KG/HR 10 mls/ hr IV .Q24H [facility] Rx#: [id number] Output: Urine 0 Stool 0 Urine/Stool Mix 0 Emesis 0 Other: # Voids 0 Weight 86.636 kg 85.1 kg Results 01/27/22 01:11 01/27/22 01:11 Cardiac Enzymes 01/27/22 01/27/22 Range/Units 01:11 01:11 AST 26 (17-59) U/L Troponin I <0.012 (0.000-0.034) ng/mL Coagulation 01/27/22 01/27/22 Range/Units 01:11 09:49 PT 10.4 (9.0-12.0) sec APTT 25.9 29.6 (22.0-30.0) sec CBC 01/27/22 Range/Units 01:11 WBC 11.4 H (3.8-10.6) k/uL RBC 4.67 (4.30-5.90) m/uL Hgb 16.0 (13.0-17.5) gm/dL Hct 48.4 (39.0-53.0) % Plt Count 220 (150-450) k/uL Comprehensive Metabolic Panel 01/27/22 Range/Units 01:11 Sodium 139 (137-145) mmol/L Potassium 4.4 (3.5-5.1) mmol/L Chloride 105 (98-107) mmol/L Carbon Dioxide 24 (22-30) mmol/L BUN 25 H (9-20) mg/dL Creatinine 0.88 (0.66-1.25) mg/dL Glucose 102 H (74-99) mg/dL Calcium 9.8 (8.4-10.2) mg/dL AST 26 (17-59) U/L ALT 22 (4-49) U/L Alkaline Phosphatase 102 (38-126) U/L Total Protein 7.2 (6.3-8.2) g/dL Albumin 4.3 (3.5-5.0) g/dL Current Medications Generic Name Dose Route Start Last Admin Trade Name Freq PRN Reason Stop Dose Admin Acetaminophen 650 mg 01/27/22 04:56 Acetaminophen Tab 325 Mg Tab PO Q6HR PRN Mild Pain or Fever > 100.5 Heparin Sodium (Porcine) 0 unit 01/27/22 04:15 01/27/22 10:59 Heparin Sodium 1,000 Un/Ml (10ml Vl) IV 4,000 unit PER PROTOCOL PRN Administration Low PTT Protocol Hydromorphone HCl 0.5 mg 01/27/22 04:56 Hydromorphone 0.5 Mg/0.5 Ml Syringe IVP Q3HR PRN Moderate Pain Heparin Sodium/Sodium Chloride 250 mls @ 10 mls/hr 01/27/22 04:15 01/27/22 10:58 25,000 unit/ Sodium Chloride IV 14.54 units/kg/hr .Q24H [facility] 12.597 mls/hr Titration Protocol 11.5425 UNITS/KG/HR Sodium Chloride 1,000 mls @ 75 mls/hr 01/27/22 05:00 01/27/22 08:15 Saline 0.9% IV 75 mls/hr .[id number] [facility] Administration Miscellaneous Information 1 each 01/27/22 02:24 Rx Info: Iv Contrast Was Given 1 Each Misc MISCELLANE 01/29/22 02:25 DAILY PRN Per Protocol Naloxone HCl 0.2 mg 01/27/22 04:56 Naloxone 0.4 Mg/Ml 1 Ml Vial IV Q2M PRN Opioid Reversal Ondansetron HCl 4 mg 01/27/22 04:56 Ondansetron 4 Mg/2 Ml Vial IVP Q8HR PRN Nausea And Vomiting Intake and Output 01/26/22 01/27/22 01/27/22 22:59 06:59 14:59 Intake Total 61.667 Output Total 0 Balance 0 61.667 Intake: Intake, IV Titration 61.667 Amount Heparin Sod,Pork in 0.45% 61.667 NaCl 25,000 unit In 0.45 % NaCl 1 250ml.bag @ 11. 5425 UNITS/KG/HR 10 mls/ hr IV .Q24H [facility] Rx#: [id number] Output: Urine 0 Stool 0 Urine/Stool Mix 0 Emesis 0 Other: # Voids 0 Weight 86.636 kg 85.1 kg Patient Weight 01/28/22 06:59 Weight 85.1 kg 01/27/22 01:11 01/27/22 01:11
[2022-01-27] MEDS: ASPIRIN 81 MG PO SCH (12:27)
[2022-01-27] MEDS: METOPROLOL TARTRATE 12.5 MG TAB PO SCH ×2 (12:28→20:15)
[2022-01-27] MEDS: LOSARTAN 50 MG TAB PO SCH (12:28)
[2022-01-27] MEDS: ATORVASTATIN 80 MG TAB PO SCH (16:01)
[2022-01-27 23:50] LABS: Chol/HDL Ratio 3.92 Ratio; LDL Cholesterol,Calculated 124.1 mg/dL (0.0-131.0); VLDL Calculation 18.86 mg/dL (5.00-40.00)
[2022-01-28] MEDS: HEPARIN SOD,PORK IN 0.45% NACL 25,000 UNIT in 0.45% NACL 1 250ML.BAG IV SCH (02:15)
[2022-01-28 08:04] LABS: Partial Thromboplastin Time 54.1 sec (22.0-30.0); Prothrombin Time 10.8 sec (9.0-12.0)
[2022-01-28 08:05] LABS: Basophils # (A) 0.1 k/uL (0-0.2); Basophils % (A) 0 %; Eosinophils # (A) 0.4 k/uL (0-0.7); Eosinophils % (A) 4 %; HGB 15.4 gm/dL (13.0-17.5); Lymphocytes % (A) 17 %; MCH 34.1 pg (25.0-35.0); MCHC 32.7 g/dL (31.0-37.0); MCV 104.3 fL (80.0-100.0); Macrocytosis Slight; Mean Platelet Volume 8.8; Monocytes # (A) 0.6 k/uL (0-1.0); Monocytes % (A) 5 %; Neutrophils # (A) 8.4 k/uL (1.3-7.7); Neutrophils % (A) 72 %; Platelet Count 208 k/uL (150-450); RBC 4.51 m/uL (4.30-5.90); RDW 12.2 % (11.5-15.5); WBC 11.7 k/uL (3.8-10.6)
[2022-01-28] MEDS: fentaNYL (PF) 50 MCG/ML 2 ML AMP IV ONE ×2 (08:05→09:13)
[2022-01-28] MEDS ORDERED: LIDOCAINE 1% INJ 10MG/ML (30 ML VIAL-PF) IV ONE (08:07)
[2022-01-28] MEDS: MIDAZOLAM 2 MG/2 ML VIAL IV ONE ×2 (08:07→09:29)
[2022-01-28] MEDS ORDERED: IV FLUID CONTINUATION 1,000 ML IV ONE (08:20)
[2022-01-28 08:31] LABS: ALT 18 U/L (4-49); AST 21 U/L (17-59); African American GFR (CKD) >90 (>60 ml/min/1.73 sqM); Albumin 3.7 g/dL (3.5-5.0); Alkaline Phosphatase 78 U/L (38-126); Anion Gap 7 mmol/L; Blood Urea Nitrogen 16 mg/dL (9-20); Calcium 8.3 mg/dL (8.4-10.2); Carbon Dioxide 23 mmol/L (22-30); Chloride 107 mmol/L (98-107); Glucose 108 mg/dL (74-99); Non-African American GFR(CKD) 90 (>60 ml/min/1.73 sqM); Potassium 4.2 mmol/L (3.5-5.1); Sodium 137 mmol/L (137-145); Total Bilirubin 0.6 mg/dL (0.2-1.3); Total Protein 6.3 g/dL (6.3-8.2)
[2022-01-28] MEDS ORDERED: HEPARIN SODIUM 1,000 UN/ML (10ML VL) IV ONE (08:33)
[2022-01-28] MEDS ORDERED: ALTEPLASE 2 MG VIAL (CATHFLO) IV STA (08:48)
[2022-01-28] MEDS ORDERED: IOPAMIDOL-250 100ML BTL INTRAARTER ONE (09:13)
[2022-01-28] MEDS: ALTEPLASE 10 MG in SODIUM CHLORIDE 0.9% 90 ML IA ONE ×2 (09:24→10:10)
[2022-01-28 09:57] LABS: Glucose,Whole Blood 119 mg/dL (70-110)
[2022-01-28] MEDS: SODIUM CHLORIDE 0.9% 1,000 ML IV SCH ×2 (10:15→22:08)
[2022-01-28] MEDS: ASPIRIN 81 MG PO SCH (10:16)
[2022-01-28] MEDS: LOSARTAN 50 MG TAB PO SCH (10:17)
[2022-01-28] MEDS: METOPROLOL TARTRATE 12.5 MG TAB PO SCH ×2 (10:17→20:15)
[2022-01-28] MEDS: ATORVASTATIN 80 MG TAB PO SCH (10:17)
--- NOTE | 2022-01-28 10:33 | IR ---
EXAMINATION TYPE: IR transcath infusion therapy DATE OF EXAM: 01/28/2022 COMPARISON: NONE HISTORY: Fluoroscopy time. Fluoroscopy was provided to the referring clinician.
--- NOTE | 2022-01-28 11:09 | P.PCN ---
Description of Procedure: PROCEDURES PERFORMED: Right lower extremity angiography, placement of TPA catheter in the right popliteal stent INDICATION: Acute limb ischemia HISTORY: Patient is a pleasant 76-year-old male with history of PAD status post stenting of the popliteal into the right anterior tibial artery from 2018. He had been working outside and had been kneeling for 3-4 hours straight and then started to note rest pain as well as discoloration of his foot. CTA showed right popliteal occlusion. Therefore recommendation was for angiography with possible TPA catheter placement. CONSENT:I have discussed the risks, benefits and alternative therapies for the above-mentioned procedure and for both sedation/analgesia as well as necessary blood product administration, if indicated, as they pertain to this patient. The patient has indicated understanding and acceptance of the risks and procedures discussed. PROCEDURE: After the risks, benefits and alternatives of the above mentioned procedure explained in detail with the patient, informed consent was obtained. Patient was taken to the catheterization lab and prepped and draped in usual fashion. 1% lidocaine was used to anesthetize the left femoral area. A 6- Danish sheath was placed in the left femoral artery using modified Seldinger technique. Patient's prior angiograms showed tortuous bifurcation. With some difficulty a Rim catheter and a 0.035 glidewire were advanced into the right common femoral artery. Next the Glidewire was exchanged for a 0.035 Amplatz Super Stiff wire. Next a 6 FR Rabi catheter was advanced into the right common femoral artery. Right lower extremity angiography was performed with DSA. Next a 0.035 stiff Glidewire in a angled glide cath was advanced to the popliteal stent. This was easily able to be advanced into the popliteal stent. The stiff Glidewire was able to be advanced into the anterior tibial artery. A super cross microcatheter was advanced into the anterior tibial artery. Small amount of contrast was used which did show some concern of possible dissection/ collaterals however the wire was able to be easily passed into the dorsalis pedis. Therefore initially the glide cath was attempted to be exchanged for an EKOS catheter however the EKOS catheter could not be advanced past the iliac bifurcation with the sheath bending up on itself in the distal aorta. Therefore this was exchanged for a TPA infusion catheter which again had some difficulty being advanced all the way past the popliteal stent into the AT. The catheter was however able to be positioned at the distal end of the stent. It was left in place with intraarterial TPA given and infusion began. The sheath and TPA catheter were left in place. The patient tolerated the procedure well. Patient was transported back to the post catheterization holding area in stable condition. Conscious Sedation: Patient was monitored under the direct supervision of vision of myself for conscious sedation using Versed and fentanyl for a total duration of 54 minutes HEMODYNAMICS: Ao: 139/61 Right lower extremity: Right common iliac artery: There is mild diffuse 30% stenosis. Right external iliac artery: There is mild diffuse 30% stenosis. Right internal iliac artery: There is no significant stenosis. Right common femoral artery: There is no significant stenosis. Right profunda: There is no significant stenosis. Right SFA: There is mild diffuse 30-50% stenosis. Right popliteal artery: There is a mid popliteal stent which is occluded with occlusion approximately 4cm prior to the stent. Right tibioperoneal trunk: There is 100% stenosis. Right anterior tibial artery: There is 100% stenosis. Right porterior tibial artery: There is 100% stenosis. Right peroneal artery: There is 100% stenosis. Left lower extremity: Not imaged FINAL IMPRESSION: 1. Peripheral arterial disease as described above with 100% popliteal stent thrombosis and 0 vessel runoff. 2. S/p placement of TPA catheter in the right popliteal artery. PLAN: 1. Aggressive risk factor modification per most recent ACC/AHA guidelines. 2. TPA at 1mg/hr for 12 hrs through TPA catheter and then bring patient back tomorrow for repeat angiography. Monitor closely. 3. Tobacco cessation.
[2022-01-28] MEDS: HYDROmorphone 0.5 MG/0.5 ML SYRINGE IVP PRN ×3 (11:32→20:15)
[2022-01-28] MEDS ORDERED: ALTEPLASE 2 MG in SODIUM CHLORIDE 0.9% 18 ML IA ONE (16:15)
--- NOTE | 2022-01-28 17:19 | P.PN ---
Subjective Progress Note Date: 01/28/22 Randell Machado, is a 76-year-old male who presented to [facility] emergency room with a chief complaint of right lower extremity pain, patient stated that he has a throbbing and cramping pain in the right calf radiating down to the foot exacerbated by activity and walking. 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 Patient was started on IV heparin in the emergency room he was admitted to medical floor for further evaluation and treatment Past medical history is significant for history of peripheral vascular disease with history of angioplasty and stent placement to the right lower extremity by Dr. Black, history of coronary artery disease with coronary artery bypass graft surgery 9 years ago, history of hypertension, history of hyperlipidemia, history of continued tobacco use. On review of systems patient is complaining of right lower extremity pain when he stands up or tries to walk, otherwise he denies any complaints at this time there is no fever or chills no headache or dizziness no chest pain no shortness of breath no cough no nausea or vomiting no abdominal pain no diarrhea and no urinary symptoms. On 01/28/2022 patient was seen and examined he is alert and oriented 3 in no apparent distress he was evaluated by cardiology he is scheduled for right lower extremity angiogram of the and placement of TPA catheter, he is denying any complaints at this time there is no fever or chills no headache or dizziness no chest pain no shortness of breath no cough no nausea or vomiting no abdominal pain no diarrhea and no urinary symptoms Objective - Vital Signs Vital signs: Vital Signs Temp 98.2 F 01/28/22 07:20 Pulse 75 01/28/22 07:20 Resp 16 01/28/22 07:20 BP 161/89 01/28/22 07:20 Pulse Ox 93 L 01/28/22 07:20 FiO2 Intake & Output 01/27/22 01/28/22 01/28/22 18:59 06:59 18:59 Intake Total 761.667 673.333 295 Output Total 0 800 600 Balance 761.667 -126.667 -305 Weight 85.1 kg Intake: IV 340 295 Invasive Line 1 20 10 Invasive Line 2 20 Sodium Chloride 0.9% 1, 300 75 000 ml @ 75 mls/hr IV . [id number] [facility] Rx#:[id number] Intake, IV Titration 61.667 188.333 Amount Heparin Sod,Pork in 0.45% 61.667 188.333 NaCl 25,000 unit In 0.45 % NaCl 1 250ml.bag @ 11. 5425 UNITS/KG/HR 10 mls/ hr IV .Q24H [facility] Rx#: [id number] Oral 360 485 Output: Urine 800 600 Stool 0 Other: Voiding Method Toilet Toilet Urinal Urinal # Voids 1 - Exam In general patient is alert and oriented x 3 in no distress HEENT head normocephalic and atraumatic Neck is supple no JVD no goiter no lymphadenopathy no carotid bruit Chest examination is clear to auscultation no crackles no wheezing Cardiac exam reveals regular heart sounds S1 and S2 no gallops no murmurs Abdomen is soft nontender no organomegaly with normal bowel sounds Extremity exam reveals no edema no cyanosis or clubbing, there are no palpable pulses in the dorsalis pedis or posterior tibialis on the right Neurological examination reveals no gross focal deficits - Labs CBC & Chem 7: 01/28/22 07:08 01/28/22 07:08 Labs: Abnormal Lab Results - Last 24 Hours (Table) 01/27/22 01/28/22 01/28/22 Range/Units 17:26 07:08 07:08 WBC 11.7 H (3.8-10.6) k/uL MCV 104.3 H (80.0-100.0) fL Neutrophils # 8.4 H (1.3-7.7) k/uL APTT 62.0 H (22.0-30.0) sec Glucose 108 H (74-99) mg/dL POC Glucose (mg/dL) (70-110) mg/dL Calcium 8.3 L (8.4-10.2) mg/dL 08/29/22 08/29/22 Range/Units 07:08 09:56 WBC (3.8-10.6) k/uL MCV (80.0-100.0) fL Neutrophils # (1.3-7.7) k/uL APTT 54.1 H (22.0-30.0) sec Glucose (74-99) mg/dL POC Glucose (mg/dL) 119 H (70-110) mg/dL Calcium (8.4-10.2) mg/dL Assessment and Plan Plan: Right lower extremity pain Right leg claudication, with absent pulses in the right foot Underlying history of coronary artery disease with history of coronary artery bypass graft surgery 9 years ago Underlying history of hypertention Underlying history of hyperlipidemia Underlying history of continued tobacco use patient was counseled in length in regards to smoking cessation At this time patient is admitted to telemetry floor Home medications reviewed and reordered He was started on IV heparin Cardiology consultation requested For GI prophylaxis we'll add Protonix
[2022-01-29] MEDS: HYDROmorphone 0.5 MG/0.5 ML SYRINGE IVP PRN ×5 (01:11→16:31)
[2022-01-29 04:04] LABS: Basophils % (A) 0 %; Eosinophils # (A) 0.3 k/uL (0-0.7); Eosinophils % (A) 2 %; HCT 44.9 % (39.0-53.0); HGB 14.6 gm/dL (13.0-17.5); Lymphocytes # (A) 1.6 k/uL (1.0-4.8); Lymphocytes % (A) 13 %; MCH 33.8 pg (25.0-35.0); MCHC 32.6 g/dL (31.0-37.0); MCV 103.7 fL (80.0-100.0); Macrocytosis Slight; Mean Platelet Volume 8.7; Monocytes # (A) 0.7 k/uL (0-1.0); Monocytes % (A) 5 %; Neutrophils # (A) 10.2 k/uL (1.3-7.7); Neutrophils % (A) 79 %; Platelet Count 159 k/uL (150-450); RBC 4.33 m/uL (4.30-5.90); RDW 12.2 % (11.5-15.5)
[2022-01-29 04:24] LABS: ALT 16 U/L (4-49); AST 18 U/L (17-59); African American GFR (CKD) >90 (>60 ml/min/1.73 sqM); Albumin 3.6 g/dL (3.5-5.0); Alkaline Phosphatase 72 U/L (38-126); Anion Gap 6 mmol/L; Blood Urea Nitrogen 14 mg/dL (9-20); Calcium 8.2 mg/dL (8.4-10.2); Carbon Dioxide 23 mmol/L (22-30); Chloride 106 mmol/L (98-107); Glucose 108 mg/dL (74-99); Non-African American GFR(CKD) >90 (>60 ml/min/1.73 sqM); Potassium 4.4 mmol/L (3.5-5.1); Sodium 135 mmol/L (137-145); Total Bilirubin 0.5 mg/dL (0.2-1.3); Total Protein 6.3 g/dL (6.3-8.2)
[2022-01-29] MEDS: METOPROLOL TARTRATE 12.5 MG TAB PO SCH ×2 (09:18→20:04)
[2022-01-29] MEDS: ATORVASTATIN 80 MG TAB PO SCH (09:18)
[2022-01-29] MEDS: LOSARTAN 50 MG TAB PO SCH (09:18)
[2022-01-29] MEDS: ASPIRIN 81 MG PO SCH (09:18)
--- NOTE | 2022-01-29 09:21 | P.PN ---
Subjective Progress Note Date: 01/29/22 The patient is a 76-year-old male who follows with Dr. Quintanilla in the office. He is currently admitted after presenting with right lower extremity discomfort. CT angiogram showed diffuse atherosclerotic disease with aneurysm of the lower abdomen extending into the right common iliac. Thrombosis of the distal femoral artery and prior right popliteal stent. The patient was taken by Dr. Barker for TPA catheter infusion. The patient was interviewed and examined lying comfortably in bed. His only complaint is back pain. He states his right lower extremity discomfort has resolved. No chest pain or chest pressure. No difficulty breathing. GENERAL: Well-appearing, well-nourished and in no acute distress. NECK: Supple without JVD or thyromegaly. LUNGS: Breath sounds clear to auscultation bilaterally. Respiration equal and unlabored. No wheezes, rales or rhonchi. HEART: Regular rate and rhythm. Systolic murmur. No rubs or gallops. S1 and S2 heard. EXTREMITIES: Normal range of motion, no edema. Right lower extremity warm to touch. Doppler signals. Left lower extremity cool to touch with +1 palpable pedal pulses VITALS: Blood pressure 131/77, pulse 71, SpO2 94 1% on 2 L nasal cannula, temp 98.4F TELEMETRY: Sinus mechanism overnight LABS: WBC 13.0, hemoglobin 14.6, hematocrit 44.9, platelet 159, sodium 135, potassium 4.4, BUN 14, creatinine 0.72, AST 18, ALT 16 IMPRESSION: Severe peripheral vascular disease with occluded right femoral artery and popliteal stent Status post TPA administration History of CAD with prior CABG History of hypertension History of dyslipidemia History of smoking PLAN: Continue TPA administration Return for repeat angiography later today with Dr. Barker Further recommendations to be based on clinical course I am dictating on behalf of Dr Rayo Wood's history/physical and assessment/plan. Objective - Vital Signs Vital signs: Vital Signs Temp 98.4 F 01/29/22 08:00 Pulse 71 01/29/22 09:00 Resp 15 01/29/22 09:00 BP 131/77 01/29/22 09:00 Pulse Ox 91 L 01/29/22 09:00 FiO2 Intake & Output 01/28/22 01/29/22 01/29/22 18:59 06:59 18:59 Intake Total 1304.726 975 150 Output Total 1450 1475 0 Balance -145.274 -500 150 Weight 92.8 kg Intake: IV 905 975 150 Invasive Line 1 20 Sodium Chloride 0.9% 1, 675 975 150 000 ml @ 75 mls/hr IV . [id number] [facility] Rx#:[id number] Intake, IV Titration 99.726 Amount Heparin Sod,Pork in 0.45% 99.726 NaCl 25,000 unit In 0.45 % NaCl 1 250ml.bag @ 11. 5425 UNITS/KG/HR 10 mls/ hr IV .Q24H [facility] Rx#: [id number] Oral 300 Output: Urine 1450 1475 0 Other: Voiding Method Urinal Urinal # Voids 1 - Labs CBC & Chem 7: 01/29/22 03:37 01/29/22 03:37 Labs: Abnormal Lab Results - Last 24 Hours (Table) 01/28/22 01/29/22 01/29/22 Range/Units 09:56 03:37 03:37 WBC 13.0 H (3.8-10.6) k/uL MCV 103.7 H (80.0-100.0) fL Neutrophils # 10.2 H (1.3-7.7) k/uL Sodium 135 L (137-145) mmol/L Glucose 108 H (74-99) mg/dL POC Glucose (mg/dL) 119 H (70-110) mg/dL Calcium 8.2 L (8.4-10.2) mg/dL
[2022-01-29] MEDS: MIDAZOLAM 2 MG/2 ML VIAL IV ONE ×2 (10:00→10:57)
[2022-01-29] MEDS: fentaNYL (PF) 50 MCG/ML 2 ML AMP IV ONE ×2 (10:00→10:57)
[2022-01-29] MEDS ORDERED: IV FLUID CONTINUATION 1,000 ML IV ONE (10:02)
[2022-01-29] MEDS: HEPARIN SODIUM 1,000 UN/ML (10ML VL) IV ONE ×3 (10:12→11:17)
[2022-01-29] MEDS ORDERED: LIDOCAINE 1% INJ 10MG/ML (30 ML VIAL-PF) SQ ONE (10:57)
[2022-01-29] MEDS ORDERED: CLOPIDOGREL 75 MG TAB PO ONE (11:05)
[2022-01-29] MEDS ORDERED: NITROGLYCERIN 1000MCG/10ML SYRINGE INTRACORON ONE (11:18)
[2022-01-29] MEDS ORDERED: IOPAMIDOL-250 100ML BTL IV ONE ×2 (11:59)
[2022-01-29] MEDS: HEPARIN SOD,PORK IN 0.45% NACL 25,000 UNIT in 0.45% NACL 1 250ML.BAG IV SCH (12:30)
--- NOTE | 2022-01-29 12:34 | IR ---
EXAMINATION TYPE: IR stent intravas non coronary DATE OF EXAM: 01/29/2022 COMPARISON: NONE HISTORY: Fluoroscopy time. Fluoroscopy was provided to the referring clinician.
[2022-01-29] MEDS: SODIUM CHLORIDE 0.9% 1,000 ML IV SCH ×2 (12:47→20:07)
[2022-01-29] MEDS: MULTIVITAMINS, THERA 1 EACH TAB PO SCH (12:47)
[2022-01-29 12:56] LABS: Appearance,Urine Clear (Clear); Bilirubin,Urine Negative (Negative); Blood,Urine Trace (Negative); Color,Urine Light Yellow; Glucose,Urine (UA) Negative (Negative); Ketones,Urine Negative (Negative); Leukocyte Esterase,Urine Negative (Negative); Mucus,Urine Rare /hpf; Nitrite,Urine Negative (Negative); Protein,Urine Negative (Negative); RBC,Urine 1 /hpf (0-5); Specific Gravity,Urine 1.022 (1.001-1.035); Urobilinogen,Urine <2.0 mg/dL (<2.0); WBC,Urine <1 /hpf (0-5)
[2022-01-29] MEDS ORDERED: ALTEPLASE 10 MG in SODIUM CHLORIDE 0.9% 90 ML IA SCH (18:38)
[2022-01-29] MEDS: EZETIMIBE 10 MG TAB PO SCH (20:04)
--- NOTE | 2022-01-29 21:23 | P.PCN ---
Description of Procedure: *Live* [facility] [address] [place], [place] [address] Procedure Note Patient Name: Randell Machado Date of : 1945 Patient Status: Inpatient Attending Provider: Kd Garcia Date: 01/28/22 10:53 Initialization Date: 01/28/22 10:53 Description of Procedure: PROCEDURES PERFORMED: Right lower extremity angiography, removal of TPA catheter, IVUS RLE, Viahban covered stent 8.0 x 150mm and overlapping Viahban 7.0 x 39mm INDICATION: Acute limb ischemia HISTORY: Patient is a pleasant 76-year-old male with history of PAD status post stenting of the popliteal into the right anterior tibial artery from 2018. He had been working outside and had been kneeling for 3-4 hours straight and then started to note rest pain as well as discoloration of his foot. 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 A TPA catheter had been placed 24 hrs previously. Repeat angiography was recommended. CONSENT:I have discussed the risks, benefits and alternative therapies for the above-mentioned procedure and for both sedation/analgesia as well as necessary blood product administration, if indicated, as they pertain to this patient. The patient has indicated understanding and acceptance of the risks and procedures discussed. PROCEDURE: After the risks, benefits and alternatives of the above mentioned procedure explained in detail with the patient, informed consent was obtained. Patient was taken to the catheterization lab and prepped and draped in usual fashion. A 6Fr sheath and TPA catheter had previously been place from the left femoral sheath into the right popliteal artery. Using the sheath, right lower extremity angiography was performed. There was significant stenosis just proximal to the stent at the site where there was previous 100% stenosis (just proximal to the stent). There was a large 4.0 cm aneurysm at the distal SFA into the right popliteal stent previously noted by CT. Therefore IVUS was performed which showed large aneurysm and diffuse 80% stenosis. Therefore the decision was made to exclude the aneurysm. Although patient had only one vessel runoff the risk of aneurysm was felt greater and therefore decision was made to place a covered stent. Heparin was given for ACT > 250. The 6Fr sheath was exchanged for a 8Fr Rabi sheath over a 0.035 Amplatz wire. Next balloon angioplasty was initially performed with a 6.0 x 20mm balloon. Next a 8.0 x 150mm Viahban was placed from the distal SFA to popliteal stent. The stent was attempted to be positioned as not to exclude collaterals with beginning of aneurysm appearing to be at the 1cm eliza on ruler. Repeat angiography showed that the stent had not completely excluded the aneurysm proximally. Therefore additional 7.0 x 39mm Viahban covered stent was placed more proximally. There was still some extravasation which was felt will likely thrombose and best monitored. Preintervention there was a 80% stenosis with mildly decreased flow. Post intervention there was no stenosis with 0% stenosis. Final angiograms were performed. The 8Fr sheath was exchanged for a short sheath. A left femoral angiogram was performed which showed diffuse stenosis and therefore treated medically. The patient tolerated the procedure well. Patient was transported back to the post catheterization holding area in stable condition. Conscious Sedation: Patient was monitored under the direct supervision of vision of myself for conscious sedation using Versed and fentanyl for a total duration of 104 minutes HEMODYNAMICS: Ao: 131/67 Right lower extremity: Right common iliac artery: There is mild diffuse 30% stenosis. Right external iliac artery: There is mild diffuse 30% stenosis. Right internal iliac artery: There is no significant stenosis. Right common femoral artery: There is no significant stenosis. Right profunda: There is no significant stenosis. Right SFA: There is mild diffuse 30-50% stenosis. There is distal SFA diffuse 40% stenosis. Right popliteal artery: There is a mid popliteal stent which is now patent. There is diffuse 80% stenosis of the proximal popliteal artery with IVUS showed extensive 4.0cm aneurysm and thrombus. Right tibioperoneal trunk: There is 100% stenosis. Right anterior tibial artery: There is no significant stenosis. Right porterior tibial artery: There is 100% stenosis. Right peroneal artery: There is 100% stenosis. Left lower extremity: Not imaged FINAL IMPRESSION: 1. 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 2. S/p Viahban covered stent 8.0 x 150mm and overlapping Viahban 7.0 x 39mm PLAN: 1. Aggressive risk factor modification per most recent ACC/AHA guidelines. 2. Dual antiplatelets with aspirin and Plavix for minimum of 3 months. 3. Monitor for exclusion of aneurysm and patency of stent by ultrasound 1, 3, 6 months. 4. Tobacco cessation.
[2022-01-30] MEDS: HYDROmorphone 0.5 MG/0.5 ML SYRINGE IVP PRN ×2 (02:31→18:07)
[2022-01-30 04:22] LABS: Basophils % (A) 0 %; Eosinophils # (A) 0.2 k/uL (0-0.7); Eosinophils % (A) 1 %; HCT 42.6 % (39.0-53.0); HGB 14.2 gm/dL (13.0-17.5); Lymphocytes # (A) 1.3 k/uL (1.0-4.8); Lymphocytes % (A) 9 %; MCH 34.8 pg (25.0-35.0); MCHC 33.3 g/dL (31.0-37.0); MCV 104.4 fL (80.0-100.0); Macrocytosis Slight; Mean Platelet Volume 8.7; Monocytes # (A) 0.9 k/uL (0-1.0); Monocytes % (A) 7 %; Neutrophils # (A) 11.8 k/uL (1.3-7.7); Neutrophils % (A) 82 %; Platelet Count 160 k/uL (150-450); RBC 4.08 m/uL (4.30-5.90); RDW 12.2 % (11.5-15.5); WBC 14.4 k/uL (3.8-10.6)
[2022-01-30 04:27] LABS: ALT 14 U/L (4-49); AST 19 U/L (17-59); African American GFR (CKD) >90 (>60 ml/min/1.73 sqM); Albumin 3.3 g/dL (3.5-5.0); Alkaline Phosphatase 63 U/L (38-126); Anion Gap 9 mmol/L; Blood Urea Nitrogen 14 mg/dL (9-20); Calcium 8.5 mg/dL (8.4-10.2); Carbon Dioxide 21 mmol/L (22-30); Chloride 103 mmol/L (98-107); Glucose 112 mg/dL (74-99); Non-African American GFR(CKD) >90 (>60 ml/min/1.73 sqM); Potassium 4.1 mmol/L (3.5-5.1); Sodium 133 mmol/L (137-145)
[2022-01-30] MEDS: ATORVASTATIN 80 MG TAB PO SCH (08:33)
[2022-01-30] MEDS: ASPIRIN 81 MG PO SCH (08:33)
[2022-01-30] MEDS: MULTIVITAMINS, THERA 1 EACH TAB PO SCH (08:33)
[2022-01-30] MEDS: METOPROLOL TARTRATE 12.5 MG TAB PO SCH ×2 (08:34→20:03)
[2022-01-30] MEDS: LOSARTAN 50 MG TAB PO SCH (08:34)
--- NOTE | 2022-01-30 09:04 | P.PN ---
Subjective Progress Note Date: 01/30/22 The patient is a 76-year-old male who follows with Dr. Quintanilla in the office. He is currently admitted after presenting with right lower extremity discomfort. CT angiogram showed diffuse atherosclerotic disease with aneurysm of the lower abdomen extending into the right common iliac. Thrombosis of the distal femoral artery and prior right popliteal stent. The patient was taken by Dr. Barker for TPA catheter infusion, which was subsequently removed on 01/30/2022. 2 additional stents were placed in the distal SFA to popliteal stent, covering 4 cm aneurysm. The patient was interviewed and examined lying comfortably in bed. He states he is feeling much better this morning. He continues to deny any pain in his right lower extremity. No chest pain or chest pressure. No difficulty breathing. GENERAL: Well-appearing, well-nourished and in no acute distress. NECK: Supple without JVD or thyromegaly. LUNGS: Breath sounds clear to auscultation bilaterally. Respiration equal and unlabored. No wheezes, rales or rhonchi. HEART: Regular rate and rhythm. Systolic murmur. No rubs or gallops. S1 and S2 heard. EXTREMITIES: Normal range of motion, no edema. Right lower extremity warm to touch. Doppler signals. Left lower extremity +2 palpable pedal pulses. Right catheter site has no hematoma or signs of drainage. VITALS: Blood pressure 109/67, pulse 79, respiratory rate 18 TELEMETRY: Sinus mechanism overnight LABS: WBC 14.4, hemoglobin 14.2, hematocrit 42.6, platelet 160, sodium 133, potassium 4.1, BUN 14, creatinine 0.68, AST 19, ALT 14 IMPRESSION: Severe peripheral vascular disease with occluded right femoral artery and popliteal stent Status post TPA administration and stent placement in distal SFA History of CAD with prior CABG History of hypertension History of dyslipidemia History of smoking PLAN: Continue dual antiplatelet therapy Patient to follow-up with primary timber skidder Dr Quintanilla at discharge I am dictating on behalf of Dr Rayo Wood's history/physical and assessment/plan. Objective - Vital Signs Vital signs: Vital Signs Temp 98.0 F 01/30/22 04:00 Pulse 79 01/30/22 06:00 Resp 18 01/30/22 06:00 BP 109/67 01/30/22 06:00 Pulse Ox 89 L 01/30/22 06:00 FiO2 Intake & Output 01/29/22 01/30/22 01/30/22 18:59 06:59 18:59 Intake Total 850 975 Output Total 950 985 Balance -100 -10 Weight 89.7 kg Intake: IV 700 975 Sodium Chloride 0.9% 1, 600 975 000 ml @ 75 mls/hr IV . [id number] [facility] Rx#:[id number] Oral 150 Output: Urine 950 985 Other: Voiding Method Urinal Urinal - Labs CBC & Chem 7: 01/30/22 03:22 01/30/22 03:22 Labs: Abnormal Lab Results - Last 24 Hours (Table) 01/29/22 01/30/22 01/30/22 Range/Units 12:37 03:22 03:22 WBC 14.4 H (3.8-10.6) k/uL RBC 4.08 L (4.30-5.90) m/uL MCV 104.4 H (80.0-100.0) fL Neutrophils # 11.8 H (1.3-7.7) k/uL Sodium 133 L (137-145) mmol/L Carbon Dioxide 21 L (22-30) mmol/L Glucose 112 H (74-99) mg/dL Total Protein 6.0 L (6.3-8.2) g/dL Albumin 3.3 L (3.5-5.0) g/dL Urine Blood Trace H (Negative) Urine Mucus Rare H (None) /hpf
[2022-01-30] MEDS: CLOPIDOGREL 75 MG TAB PO SCH (15:02)
[2022-01-30] MEDS: SODIUM CHLORIDE 0.9% 1,000 ML IV SCH (15:03)
--- NOTE | 2022-01-30 16:21 | P.PN ---
Subjective Progress Note Date: 01/29/22 Randell Machado, is a 76-year-old male who presented to [facility] [place] emergency room with a chief complaint of right lower extremity pain, patient stated that he has a throbbing and cramping pain in the right calf radiating down to the foot exacerbated by activity and walking. 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 Patient was started on IV heparin in the emergency room he was admitted to medical floor for further evaluation and treatment Past medical history is significant for history of peripheral vascular disease with history of angioplasty and stent placement to the right lower extremity by Dr. Black, history of coronary artery disease with coronary artery bypass graft surgery 9 years ago, history of hypertension, history of hyperlipidemia, history of continued tobacco use. On review of systems patient is complaining of right lower extremity pain when he stands up or tries to walk, otherwise he denies any complaints at this time there is no fever or chills no headache or dizziness no chest pain no shortness of breath no cough no nausea or vomiting no abdominal pain no diarrhea and no urinary symptoms. On 01/28/2022 patient was seen and examined he is alert and oriented 3 in no apparent distress he was evaluated by cardiology he is scheduled for right lower extremity angiogram of the and placement of TPA catheter, he is denying any complaints at this time there is no fever or chills no headache or dizziness no chest pain no shortness of breath no cough no nausea or vomiting no abdominal pain no diarrhea and no urinary symptoms On 01/29/2021 patient was seen and examined in the ICU he is alert and oriented 3 in no apparent distress there is no fever or chills no headache or dizziness no chest pain no shortness of breath no cough no nausea or vomiting no abdominal pain no diarrhea and no urinary symptoms Objective - Vital Signs Vital signs: Vital Signs Temp 98.4 F 01/29/22 08:00 Pulse 71 01/29/22 09:00 Resp 15 01/29/22 09:00 BP 131/77 01/29/22 09:00 Pulse Ox 91 L 01/29/22 09:00 FiO2 Intake & Output 01/28/22 01/29/22 01/29/22 18:59 06:59 18:59 Intake Total 1304.726 975 150 Output Total 1450 1475 0 Balance -145.274 -500 150 Weight 92.8 kg Intake: IV 905 975 150 Invasive Line 1 20 Sodium Chloride 0.9% 1, 675 975 150 000 ml @ 75 mls/hr IV . [id number] [facility] Rx#:[id number] Intake, IV Titration 99.726 Amount Heparin Sod,Pork in 0.45% 99.726 NaCl 25,000 unit In 0.45 % NaCl 1 250ml.bag @ 11. 5425 UNITS/KG/HR 10 mls/ hr IV .Q24H [facility] Rx#: [id number] Oral 300 Output: Urine 1450 1475 0 Other: Voiding Method Urinal Urinal Urinal # Voids 1 - Exam In general patient is alert and oriented x 3 in no distress HEENT head normocephalic and atraumatic Neck is supple no JVD no goiter no lymphadenopathy no carotid bruit Chest examination is clear to auscultation no crackles no wheezing Cardiac exam reveals regular heart sounds S1 and S2 no gallops no murmurs Abdomen is soft nontender no organomegaly with normal bowel sounds Extremity exam reveals no edema no cyanosis or clubbing, there are no palpable pulses in the dorsalis pedis or posterior tibialis on the right Neurological examination reveals no gross focal deficits - Labs CBC & Chem 7: 01/30/22 03:22 01/30/22 03:22 Labs: Abnormal Lab Results - Last 24 Hours (Table) 01/28/22 01/29/22 01/29/22 Range/Units 09:56 03:37 03:37 WBC 13.0 H (3.8-10.6) k/uL MCV 103.7 H (80.0-100.0) fL Neutrophils # 10.2 H (1.3-7.7) k/uL Sodium 135 L (137-145) mmol/L Glucose 108 H (74-99) mg/dL POC Glucose (mg/dL) 119 H (70-110) mg/dL Calcium 8.2 L (8.4-10.2) mg/dL Assessment and Plan Plan: Right lower extremity pain Right leg claudication, with absent pulses in the right foot Underlying history of coronary artery disease with history of coronary artery bypass graft surgery 9 years ago Underlying history of hypertention Underlying history of hyperlipidemia Underlying history of continued tobacco use patient was counseled in length in regards to smoking cessation At this time patient is admitted to telemetry floor Home medications reviewed and reordered He was started on IV heparin Cardiology consultation requested For GI prophylaxis we'll add Protonix
--- NOTE | 2022-01-30 17:28 | P.PN ---
Subjective Progress Note Date: 01/30/22 Randell Machado, is a 76-year-old male who presented to [facility] emergency room with a chief complaint of right lower extremity pain, patient stated that he has a throbbing and cramping pain in the right calf radiating down to the foot exacerbated by activity and walking. 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 Patient was started on IV heparin in the emergency room he was admitted to medical floor for further evaluation and treatment Past medical history is significant for history of peripheral vascular disease with history of angioplasty and stent placement to the right lower extremity by Dr. Black, history of coronary artery disease with coronary artery bypass graft surgery 9 years ago, history of hypertension, history of hyperlipidemia, history of continued tobacco use. On review of systems patient is complaining of right lower extremity pain when he stands up or tries to walk, otherwise he denies any complaints at this time there is no fever or chills no headache or dizziness no chest pain no shortness of breath no cough no nausea or vomiting no abdominal pain no diarrhea and no urinary symptoms. On 01/28/2022 patient was seen and examined he is alert and oriented 3 in no apparent distress he was evaluated by cardiology he is scheduled for right lower extremity angiogram of the and placement of TPA catheter, he is denying any complaints at this time there is no fever or chills no headache or dizziness no chest pain no shortness of breath no cough no nausea or vomiting no abdominal pain no diarrhea and no urinary symptoms On 01/29/2021 patient was seen and examined in the ICU he is alert and oriented 3 in no apparent distress there is no fever or chills no headache or dizziness no chest pain no shortness of breath no cough no nausea or vomiting no abdominal pain no diarrhea and no urinary symptoms. On 01/30/2021 patient was seen and examined in the ICU he is alert and oriented 3 in no apparent distress he denies any pain in his lower extremity there is no fever or chills no headache or dizziness no chest pain no shortness of breath no cough no nausea or vomiting no abdominal pain no diarrhea no blood in the stools no burning with urination no frequency or urgency and no hematuria, will be transferred out of ICU today, possible discharge to home in the next 1-2 days Objective - Vital Signs Vital signs: Vital Signs Temp 98.4 F 01/30/22 14:54 Pulse 84 01/30/22 14:50 Resp 10 L 01/30/22 14:54 BP 131/82 01/30/22 14:50 Pulse Ox 93 L 01/30/22 14:54 FiO2 Intake & Output 01/29/22 01/30/22 01/30/22 18:59 06:59 18:59 Intake Total 850 975 75 Output Total 950 985 300 Balance -100 -10 -225 Weight 89.7 kg Intake: IV 700 975 75 Sodium Chloride 0.9% 1, 600 975 75 000 ml @ 75 mls/hr IV . [id number] [facility] Rx#:[id number] Oral 150 Output: Urine 950 985 300 Other: Voiding Method Urinal Urinal Urinal # Voids 2 - Exam In general patient is alert and oriented x 3 in no distress HEENT head normocephalic and atraumatic Neck is supple no JVD no goiter no lymphadenopathy no carotid bruit Chest examination is clear to auscultation no crackles no wheezing Cardiac exam reveals regular heart sounds S1 and S2 no gallops no murmurs Abdomen is soft nontender no organomegaly with normal bowel sounds Extremity exam reveals no edema no cyanosis or clubbing, there are no palpable pulses in the dorsalis pedis or posterior tibialis on the right Neurological examination reveals no gross focal deficits - Labs CBC & Chem 7: 01/30/22 03:22 01/30/22 03:22 Labs: Abnormal Lab Results - Last 24 Hours (Table) 01/30/22 01/30/22 Range/Units 03:22 03:22 WBC 14.4 H (3.8-10.6) k/uL RBC 4.08 L (4.30-5.90) m/uL MCV 104.4 H (80.0-100.0) fL Neutrophils # 11.8 H (1.3-7.7) k/uL Sodium 133 L (137-145) mmol/L Carbon Dioxide 21 L (22-30) mmol/L Glucose 112 H (74-99) mg/dL Total Protein 6.0 L (6.3-8.2) g/dL Albumin 3.3 L (3.5-5.0) g/dL Assessment and Plan Plan: Right lower extremity pain Right leg claudication, with absent pulses in the right foot Underlying history of coronary artery disease with history of coronary artery bypass graft surgery 9 years ago Underlying history of hypertention Underlying history of hyperlipidemia Underlying history of continued tobacco use patient was counseled in length in regards to smoking cessation At this time patient is admitted to telemetry floor Home medications reviewed and reordered He was started on IV heparin Cardiology consultation requested For GI prophylaxis we'll add Protonix
[2022-01-30] MEDS: EZETIMIBE 10 MG TAB PO SCH (20:03)
[2022-01-31] MEDS: MULTIVITAMINS, THERA 1 EACH TAB PO SCH (08:29)
[2022-01-31] MEDS: ASPIRIN 81 MG PO SCH (08:29)
[2022-01-31] MEDS: LOSARTAN 50 MG TAB PO SCH (08:29)
[2022-01-31] MEDS: METOPROLOL TARTRATE 12.5 MG TAB PO SCH (08:29)
[2022-01-31] MEDS: CLOPIDOGREL 75 MG TAB PO SCH (08:29)
[2022-01-31] MEDS: ATORVASTATIN 80 MG TAB PO SCH (08:30)
--- NOTE | 2022-01-31 09:18 | P.PN ---
Subjective Progress Note Date: 01/31/22 The patient is a 76-year-old male who follows with Dr. Quintanilla in the office. He is currently admitted after presenting with right lower extremity discomfort. CT angiogram showed diffuse atherosclerotic disease with aneurysm of the lower abdomen extending into the right common iliac. Thrombosis of the distal femoral artery and prior right popliteal stent. The patient was taken by Dr. Barker for TPA catheter infusion, which was subsequently removed on 01/30/2022. 2 additional stents were placed in the distal SFA to popliteal stent, covering 4 cm aneurysm. The patient was interviewed and examined sitting comfortably on the side of his bed. He is eager to be discharged. He continues to deny any pain in his right lower extremity. No chest pain or chest pressure. No difficulty breathing. GENERAL: Well-appearing, well-nourished and in no acute distress. NECK: Supple without JVD or thyromegaly. LUNGS: Breath sounds clear to auscultation bilaterally. Respiration equal and unlabored. No wheezes, rales or rhonchi. HEART: Regular rate and rhythm. Systolic murmur. No rubs or gallops. S1 and S2 heard. EXTREMITIES: Normal range of motion, no edema. Right lower extremity warm to touch. Doppler signals. Left lower extremity +2 palpable pedal pulses. Right catheter site has no hematoma or signs of drainage. VITALS: Blood pressure 120/81, respiratory rate 20, pulse 83, temp 98.0F, SpO2 92% TELEMETRY: Sinus mechanism overnight IMPRESSION: Severe peripheral vascular disease with occluded right femoral artery and popliteal stent Status post TPA administration and stent placement in distal SFA History of CAD with prior CABG History of hypertension History of dyslipidemia History of smoking PLAN: Continue dual antiplatelet therapy Patient to follow-up with primary rn radiation Dr Quintanilla at discharge I am dictating on behalf of Dr Rayo Wood's history/physical and assessme nt/plan. Objective - Vital Signs Vital signs: Vital Signs Temp 98.0 F 01/31/22 08:00 Pulse 83 01/31/22 08:00 Resp 26 H 01/31/22 08:00 BP 120/81 01/31/22 08:00 Pulse Ox 92 L 01/31/22 08:00 FiO2 Intake & Output 01/30/22 01/31/22 01/31/22 18:59 06:59 18:59 Intake Total 75 0 Output Total 300 0 Balance -225 0 Weight 84.6 kg Intake: IV 75 0 Sodium Chloride 0.9% 1, 75 0 000 ml @ 75 mls/hr IV . [id number] [facility] Rx#:[id number] Output: Urine 300 0 Other: Voiding Method Urinal Urinal Toilet # Voids 2 1 - Labs CBC & Chem 7: 01/30/22 03:22 01/30/22 03:22 Labs: Microbiology - Last 24 Hours (Table) 01/29/22 13:59 Blood Culture - Preliminary Blood No Growth after 24 hours
--- NOTE | 2022-01-31 15:09 | P.DS ---
Providers Date of admission: 01/27/22 05:48 Attending physician: Kd Garcia Consults: 01/27/22 04:56 Consult Physician Routine Consulting Provider: [facility] Consult Reason/Comments: RLE claudication, peripheral vascular disease, thrombosed popliteal stent Do you want consulting provider notified?: Already Contacted Primary care physician: Hayley White [facility] Course: Diagnosis on discharge: Right lower extremity pain Right leg claudication, with absent pulses in the right foot Underlying history of coronary artery disease with history of coronary artery bypass graft surgery 9 years ago Underlying history of hypertention Underlying history of hyperlipidemia Underlying history of continued tobacco use patient was counseled in length in regards to smoking cessation Evidence of chronic obstructive pulmonary disease Evidence of chronic hypoxic respiratory failure Hospital course: Randell Machado, is a 76-year-old male who presented to [facility] emergency room with a chief complaint of right lower extremity pain, patient stated that he has a throbbing and cramping pain in the right calf radiating down to the foot exacerbated by activity and walking. 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 Patient was started on IV heparin in the emergency room he was admitted to medical floor for further evaluation and treatment Past medical history is significant for history of peripheral vascular disease with history of angioplasty and stent placement to the right lower extremity by Dr. Black, history of coronary artery disease with coronary artery bypass graft surgery 9 years ago, history of hypertension, history of hyperlipidemia, history of continued tobacco use. On review of systems patient is complaining of right lower extremity pain when he stands up or tries to walk, otherwise he denies any complaints at this time there is no fever or chills no headache or dizziness no chest pain no shortness of breath no cough no nausea or vomiting no abdominal pain no diarrhea and no urinary symptoms. On 01/28/2022 patient was seen and examined he is alert and oriented 3 in no apparent distress he was evaluated by cardiology he is scheduled for right lower extremity angiogram of the and placement of TPA catheter, he is denying any complaints at this time there is no fever or chills no headache or dizziness no chest pain no shortness of breath no cough no nausea or vomiting no abdominal pain no diarrhea and no urinary symptoms On 01/29/2021 patient was seen and examined in the ICU he is alert and oriented 3 in no apparent distress there is no fever or chills no headache or dizziness no chest pain no shortness of breath no cough no nausea or vomiting no abdominal pain no diarrhea and no urinary symptoms. On 01/30/2021 patient was seen and examined in the ICU he is alert and oriented 3 in no apparent distress he denies any pain in his lower extremity there is no fever or chills no headache or dizziness no chest pain no shortness of breath no cough no nausea or vomiting no abdominal pain no diarrhea no blood in the stools no burning with urination no frequency or urgency and no hematuria, will be transferred out of ICU today, possible discharge to home in the next 1-2 days On 01/31/2022 patient was seen and examined in the ICU he is alert and oriented 3 in no apparent distress there is no fever or chills no headache or dizziness no chest pain no shortness of breath no cough no nausea or vomiting no abdominal pain no diarrhea and no urinary symptoms. He denies any pain in the lower extremity and is very eager to go home. Patient was noticed to have significant drop in his pulse oximetry when he is ambulating. Pulse ox was down to 82% after walking less than 1 minute, arrangements are being made for home oxygen. Patient is a chronic smoker. And the cause of his hypoxia is most likely COPD. Patient will need complete pulmonary function test. We will make arrangement for appointment was pulmonary Dr. Oquendo for evaluation and treatment. Patient Condition at Discharge: Serious Plan - Discharge Summary Discharge Rx Participant: No New Discharge Prescriptions: New Atorvastatin [Lipitor] 80 mg PO DAILY tab Clopidogrel [Plavix] 75 mg PO DAILY tab Continue Metoprolol Tartrate [Lopressor] 12.5 mg PO BID Losartan [Cozaar] 50 mg PO DAILY Aspirin [Adult Low Dose Aspirin EC] 81 mg PO DAILY Multivit-Min/FA/Lycopen/Lutein [Centrum Silver Men Tablet] 1 tab PO DAILY Ezetimibe [Zetia] 10 mg PO HS Discharge Medication List Aspirin [Adult Low Dose Aspirin EC] 81 mg PO DAILY 03/19/18 [History] Losartan [Cozaar] 50 mg PO DAILY 03/19/18 [History] Metoprolol Tartrate [Lopressor] 12.5 mg PO BID 03/19/18 [History] Multivit-Min/FA/Lycopen/Lutein [Centrum Silver Men Tablet] 1 tab PO DAILY 04/27/18 [History] Ezetimibe [Zetia] 10 mg PO HS 01/27/22 [History] Atorvastatin [Lipitor] 80 mg PO DAILY tab 01/31/22 [Rx] Clopidogrel [Plavix] 75 mg PO DAILY tab 01/31/22 [Rx] Follow up Appointment(s)/Referral(s): Gerson Oquendo MD [STAFF PHYSICIAN] - 1 Week Hayley White MD [Primary Care Provider] - 1-2 days Franklin Quintanilla MD [STAFF PHYSICIAN] - 1 Week Patient Instructions/Handouts: COPD (Chronic Obstructive Pulmonary Disease) (DC)
[2022-01-31 16:06] VITALS: BP 106/67; PULSE 73; RESP 16; TEMP 98
[2022-01-31] MEDS: HYDROmorphone 0.5 MG/0.5 ML SYRINGE IVP PRN (16:18)
== END 2022-01-31 17:02 | disposition home or self-care (01) | DRG 253 ==
LOC: EC 21:44 → 3SCARD 01-27 05:48 → 2SICU 01-28 08:53
PROVIDERS: ADMIT Internal Medicine; ATTEND Internal Medicine
PROC: 3E05317 Introduction of Other Thrombolytic into Peripheral Artery, Percutaneous Approach (ICD-10-PCS; 2022-01-28 11:30)
PROC: B41F1ZZ Fluoroscopy of Right Lower Extremity Arteries using Low Osmolar Contrast (ICD-10-PCS; 2022-01-28 11:30)
PROC: B44FZZ3 Ultrasonography of Right Lower Extremity Arteries, Intravascular (ICD-10-PCS; principal; 2022-01-29 08:30)
PROC: 047N3EZ Dilation of Left Popliteal Artery with Two Intraluminal Devices, Percutaneous Approach (ICD-10-PCS; principal; 2022-01-29 08:30)
DX: T82.868A Thrombosis due to vascular prosthetic devices, implants and grafts, initial encounter (principal); I74.5 Embolism and thrombosis of iliac artery; J96.11 Chronic respiratory failure with hypoxia; I72.4 Aneurysm of artery of lower extremity; I71.4 Abdominal aortic aneurysm, without rupture; I70.211 Atherosclerosis of native arteries of extremities with intermittent claudication, right leg; J44.9 Chronic obstructive pulmonary disease, unspecified; E78.5 Hyperlipidemia, unspecified; I10 Essential (primary) hypertension; I25.10 Atherosclerotic heart disease of native coronary artery without angina pectoris; M54.9 Dorsalgia, unspecified; F17.210 Nicotine dependence, cigarettes, uncomplicated; Z71.6 Tobacco abuse counseling; Z79.82 Long term (current) use of aspirin; Z79.899 Other long term (current) drug therapy; Z95.1 Presence of aortocoronary bypass graft; Z95.820 Peripheral vascular angioplasty status with implants and grafts; Z88.5 Allergy status to narcotic agent; Y83.1 Surgical operation with implant of artificial internal device as the cause of abnormal reaction of the patient, or of later complication, without mention of misadventure at the time of the procedure
CPT/HCPCS: 36247; 36415; 37211; 37214; 37226; 37252; 75710; 80053; 80061; 81001; 84484; 85025; 85610; 85730; 87040; 96365; 99285

== ENCOUNTER 2022-02-02 21:24 | Emergency (ER) | payer MEDICARE ==
[2022-02-02 22:00] VITALS: RESP 18; TEMP 98
--- NOTE | 2022-02-02 23:56 | ED ---
General Adult HPI - General Chief complaint: Extremity Problem,Nontraumatic Stated complaint: Recheck-L leg Time Seen by Provider: 02/02/22 23:13 Source: patient, RN notes reviewed Mode of arrival: ambulatory - History of Present Illness Initial comments: 76 year old male presents to the emergency department for evaluation of worsening bruising to the left lower extremity. Patient states he had a vascular stent placed this past week. States he was discharged home and is concerned with the extent of his bruising. Expresses concern that there "is something leaking inside." Denies fever, chills, headache, dizziness, chest pain, shortness of breath, abdominal pain, back pain, nausea, vomiting, diarrhea, dysuria, or hematuria. - Related Data Home Medications Medication Instructions Recorded Confirmed Aspirin [Adult Low Dose Aspirin EC] 81 mg PO DAILY 03/19/18 01/27/22 Losartan [Cozaar] 50 mg PO DAILY 03/19/18 01/27/22 Metoprolol Tartrate [Lopressor] 12.5 mg PO BID 03/19/18 01/27/22 Multivit-Min/FA/Lycopen/Lutein 1 tab PO DAILY 04/27/18 01/27/22 [Centrum Silver Men Tablet] Ezetimibe [Zetia] 10 mg PO HS 01/27/22 01/27/22 Previous Rx's Medication Instructions Recorded Atorvastatin [Lipitor] 80 mg PO DAILY tab 01/31/22 Clopidogrel [Plavix] 75 mg PO DAILY tab 01/31/22 Allergies Allergy/AdvReac Type Severity Reaction Status Date / Time meperidine [From Demerol] AdvReac Nausea Verified 02/02/22 22:00 Review of Systems ROS Statement: Those systems with pertinent positive or pertinent negative responses have been documented in the HPI. ROS Other: All systems not noted in ROS Statement are negative. Past Medical History Past Medical History: Coronary Artery Disease (CAD), Hyperlipidemia, Hypertension, Vascular Disorder Additional Past Medical History / Comment(s): hemorrhoids,cramping rt leg with activity History of Any Multi-Drug Resistant Organisms: None Reported Past Surgical History: Adenoidectomy, Coronary Bypass/CABG, Heart Catheterizati on, Hernia Repair, Tonsillectomy Additional Past Surgical History / Comment(s): Aortogram, ibrahima inguinal hernias,lung bx, stent in right leg Past Anesthesia/Blood Transfusion Reactions: No Reported Reaction Past Psychological History: No Psychological Hx Reported Smoking Status: Current some day smoker Past Alcohol Use History: None Reported Past Drug Use History: None Reported - Past Family History Mother Family Medical History: Cancer General Exam Limitations: no limitations (Well-developed, well-nourished male in no acute distress. Initial temperature 98.0 compulsively 5, respirations 18, blood pressure 138/77, pulse ox 98% on room air.) General appearance: alert, in no apparent distress ENT exam: Present: normal oropharynx Respiratory exam: Present: normal lung sounds bilaterally. Absent: respiratory distress, wheezes, rales, rhonchi, stridor Cardiovascular Exam: Present: regular rate, normal rhythm, normal heart sounds. Absent: systolic murmur, diastolic murmur, rubs, gallop, clicks GI/Abdominal exam: Present: soft, normal bowel sounds. Absent: distended, tenderness, guarding, rebound, rigid Left Upper Leg exam: Present: full ROM, ecchymosis (scattered purple discoloration left groin extending medial and inferior; groin is soft and non-tender). Absent: tenderness Knee exam: Present: normal inspection, full ROM. Absent: tenderness Lower Leg exam: Present: normal inspection, full ROM. Absent: tenderness Ankle exam: Present: normal inspection, full ROM Foot/Toe exam: Present: normal inspection, full ROM Neurovascular tendon exam: Present: no vascular compromise Gait: observed and normal Neurological exam: Present: alert, oriented X3, CN II-XII intact Psychiatric exam: Present: normal affect, normal mood Skin exam: Present: warm, dry, intact Course Vital Signs 02/02/22 02/02/22 02/03/22 21:55 23:50 01:44 Temperature 98 F Pulse Rate 75 68 64 Respiratory 18 18 18 Rate Blood Pressure 138/77 138/90 O2 Sat by Pulse 98 97 95 Oximetry - Reevaluation(s) Reevaluation #1: 02/03/22 01:00 Patient's laboratory specimen was hemolyzed which was presumably the explanation for his hyperkalemia (K5.9) given his normal renal function and normal ECG. This patient's care was discussed with my attending, Dr. Yañez. Medical Decision Making - Medical Decision Making 76-year-old male with a past medical history of peripheral vascular disease and recent vascular stent placement presents to the emergency department for evaluation of expanding ecchymosis of the left groin. Upon exam, patient is well-appearing and in no acute distress. Left groin is soft and nontender to to uch. He does have scattered purplish discoloration extending from the left inguinal area medial and inferior. Patient is able to ambulate without difficulty. Laboratory studies were obtained. Hemoglobin is stable at 13.6. Potassium is elevated at 5.9, though is likely due to hemolyzed specimen given normal renal function and normal ECG. Ultrasound is negative for pseudoaneurysm and hematoma. Patient will be discharged home to continue taking his medications as prescribed. Instructed to elevate affected extremity while at rest. Anticipatory guidance provided. Instructed to follow up as scheduled. Return parameters were discussed in detail. Patient verbalizes understanding and agrees with this plan. Attending: Otilio. - Lab Data Result diagrams: 02/02/22 23:50 02/02/22 23:50 Lab Results 02/02/22 02/02/22 02/02/22 Range/Units 23:50 23:50 23:50 WBC 11.1 H (3.8-10.6) k/uL RBC 3.96 L (4.30-5.90) m/uL Hgb 13.6 (13.0-17.5) gm/dL Hct 40.9 (39.0-53.0) % MCV 103.3 H (80.0-100.0) fL MCH 34.3 (25.0-35.0) pg MCHC 33.2 (31.0-37.0) g/dL RDW 12.0 (11.5-15.5) % Plt Count 234 (150-450) k/uL MPV 9.2 Neutrophils % 65 % Lymphocytes % 19 % Monocytes % 8 % Eosinophils % 6 % Basophils % 1 % Neutrophils # 7.2 (1.3-7.7) k/uL Lymphocytes # 2.1 (1.0-4.8) k/uL Monocytes # 0.9 (0-1.0) k/uL Eosinophils # 0.6 (0-0.7) k/uL Basophils # 0.1 (0-0.2) k/uL Macrocytosis Slight PT 10.6 (9.0-12.0) sec INR 1.0 (<1.2) APTT 25.5 (22.0-30.0) sec Sodium 136 L (137-145) mmol/L Potassium 5.9 H (3.5-5.1) mmol/L Chloride 104 (98-107) mmol/L Carbon Dioxide 21 L (22-30) mmol/L Anion Gap 11 mmol/L BUN 23 H (9-20) mg/dL Creatinine 0.84 (0.66-1.25) mg/dL Est GFR (CKD-EPI)AfAm >90 (>60 ml/min/1.73 sqM) Est GFR (CKD-EPI)NonAf 86 (>60 ml/min/1.73 sqM) Glucose 109 H (74-99) mg/dL Calcium 8.8 (8.4-10.2) mg/dL Total Bilirubin 1.3 (0.2-1.3) mg/dL AST 55 (17-59) U/L ALT 30 (4-49) U/L Alkaline Phosphatase 58 (38-126) U/L Total Protein 7.1 (6.3-8.2) g/dL Albumin 4.0 (3.5-5.0) g/dL - EKG Data EKG shows normal: sinus rhythm Rate: normal EKG Comments: EKG obtained at 01:01 shows sinus rhythm. Ventricular rate 62, NM interval 175, QRS duration 98, QT/QTc 409/415. Interpretation normal ECG. - Radiology Data Radiology results: report reviewed Ultrasound of the left great was obtained. Report was reviewed in its entirety. Impression per Dr. Sullivan is there is a single large left inguinal lymph node. No evidence of pseudoaneurysm. No evidence of hematoma. Disposition Clinical Impression: Contusion of left groin Disposition: HOME SELF-CARE Condition: Stable Instructions (If sedation given, give patient instructions): Contusion in Adults (ED) Additional Instructions: Expect that bruising may extend below the knee over the next few days. Elevate leg while at rest. May take Tylenol if needed for discomfort. Follow-up as scheduled. Return to the emergency department with any new, worsening, or concerning symptoms. Is patient prescribed a controlled substance at d/c from ED?: No Referrals: Hayley White MD [Primary Care Provider] - 1-2 days Time of Disposition: 01:28
[2022-02-03 00:12] LABS: Basophils # (A) 0.1 k/uL (0-0.2); Basophils % (A) 1 %; Eosinophils # (A) 0.6 k/uL (0-0.7); Eosinophils % (A) 6 %; HCT 40.9 % (39.0-53.0); HGB 13.6 gm/dL (13.0-17.5); Lymphocytes # (A) 2.1 k/uL (1.0-4.8); Lymphocytes % (A) 19 %; MCH 34.3 pg (25.0-35.0); MCHC 33.2 g/dL (31.0-37.0); MCV 103.3 fL (80.0-100.0); Macrocytosis Slight; Mean Platelet Volume 9.2; Monocytes # (A) 0.9 k/uL (0-1.0); Monocytes % (A) 8 %; Neutrophils # (A) 7.2 k/uL (1.3-7.7); Neutrophils % (A) 65 %; Platelet Count 234 k/uL (150-450); RBC 3.96 m/uL (4.30-5.90); WBC 11.1 k/uL (3.8-10.6)
[2022-02-03 00:21] LABS: ALT 30 U/L (4-49); AST 55 U/L (17-59); African American GFR (CKD) >90 (>60 ml/min/1.73 sqM); Alkaline Phosphatase 58 U/L (38-126); Anion Gap 11 mmol/L; Blood Urea Nitrogen 23 mg/dL (9-20); Calcium 8.8 mg/dL (8.4-10.2); Carbon Dioxide 21 mmol/L (22-30); Chloride 104 mmol/L (98-107); Glucose 109 mg/dL (74-99); Non-African American GFR(CKD) 86 (>60 ml/min/1.73 sqM); Sodium 136 mmol/L (137-145); Total Bilirubin 1.3 mg/dL (0.2-1.3); Total Protein 7.1 g/dL (6.3-8.2)
[2022-02-03 00:23] LABS: Potassium 5.9 mmol/L (3.5-5.1)
[2022-02-03 00:28] LABS: Partial Thromboplastin Time 25.5 sec (22.0-30.0); Prothrombin Time 10.6 sec (9.0-12.0)
--- NOTE | 2022-02-03 00:40 | US ---
EXAMINATION TYPE: US lower ext pseudo artery LT DATE OF EXAM: 02/03/2022 COMPARISON: NONE CLINICAL HISTORY: contusion, left groin s/p stent insertion. Recent stent placed left groin approach, left groin pain and bruising EXAM PERFORMED: Grayscale and color Doppler duplex imaging performed of the groin, post cardiac cali ter to assess for pseudoaneurysm. SIDE PERFORMED: Left Color and Waveform Doppler performed to assess for the presence of pseudoaneurysm; 2.6 x 1.6 x 2.0cm hypoechoic non vascular area seen anterior to iliac artery IMPRESSION: There is a single large left inguinal lymph node. No evidence of pseudoaneurysm. No evide nce of hematoma.
[2022-02-03 01:45] VITALS: BP 138/90; PULSE 64
== END 2022-02-03 01:44 | disposition home or self-care (01) ==
LOC: EC 21:24
DX: S30.1XXA Contusion of abdominal wall, initial encounter (principal); I25.10 Atherosclerotic heart disease of native coronary artery without angina pectoris; E78.5 Hyperlipidemia, unspecified; I10 Essential (primary) hypertension; F17.200 Nicotine dependence, unspecified, uncomplicated; Z79.82 Long term (current) use of aspirin; Z79.899 Other long term (current) drug therapy; Z88.6 Allergy status to analgesic agent; X58.XXXA Exposure to other specified factors, initial encounter
CPT/HCPCS: 36415; 80053; 85025; 85610; 85730; 93005; 93975; 99284

== ENCOUNTER 2022-03-21 06:57 | Day surgery (SDC) | payer MEDICARE ==
[2022-03-20 09:26] VITALS: BMI 28.0
[~2022-03-21 06:57] MED LIST changes: +ALPRAZolam 0.25 MG TAB PO PRN
[2022-03-21] MEDS ORDERED: ASPIRIN 325 MG TAB PO PRN (07:00)
[2022-03-21 07:38] LABS: Basophils # (A) 0.1 k/uL (0-0.2); Basophils % (A) 1 %; Eosinophils # (A) 0.4 k/uL (0-0.7); Eosinophils % (A) 4 %; HCT 45.5 % (39.0-53.0); HGB 15.6 gm/dL (13.0-17.5); Lymphocytes # (A) 2.4 k/uL (1.0-4.8); Lymphocytes % (A) 22 %; MCH 34.8 pg (25.0-35.0); MCHC 34.3 g/dL (31.0-37.0); MCV 101.6 fL (80.0-100.0); Monocytes # (A) 0.7 k/uL (0-1.0); Monocytes % (A) 7 %; Neutrophils % (A) 65 %; Platelet Count 269 k/uL (150-450); RBC 4.48 m/uL (4.30-5.90); RDW 11.9 % (11.5-15.5); WBC 10.9 k/uL (3.8-10.6)
[2022-03-21] MEDS ORDERED: ASPIRIN 81 MG ONE (07:42)
[2022-03-21 07:51] LABS: African American GFR (CKD) >90 (>60 ml/min/1.73 sqM); Anion Gap 11 mmol/L; Blood Urea Nitrogen 23 mg/dL (9-20); Calcium 9.2 mg/dL (8.4-10.2); Carbon Dioxide 23 mmol/L (22-30); Chloride 106 mmol/L (98-107); Glucose 112 mg/dL (74-99); Non-African American GFR(CKD) >90 (>60 ml/min/1.73 sqM); Potassium 4.6 mmol/L (3.5-5.1); Sodium 140 mmol/L (137-145)
[2022-03-21 07:52] VITALS: RESP 16; TEMP 97.8
[2022-03-21] MEDS ORDERED: fentaNYL (PF) 50 MCG/ML 2 ML AMP ONE (09:13)
[2022-03-21] MEDS ORDERED: MIDAZOLAM 2 MG/2 ML VIAL IV ONE (09:20)
[2022-03-21] MEDS ORDERED: fentaNYL (PF) 50 MCG/ML 2 ML AMP IV ONE (09:20)
[2022-03-21] MEDS ORDERED: LIDOCAINE 1% INJ 10MG/ML (30 ML VIAL-PF) SQ ONE (09:29)
[2022-03-21] MEDS ORDERED: IOPAMIDOL-250 100ML BTL INTRAARTER ONE (10:07)
--- NOTE | 2022-03-21 10:52 | IR ---
Fluoroscopy HISTORY: Peripheral vascular occlusive disease 3.4 minutes fluoroscopy time supplied to the referring clinician. 149 intraoperative C-arm images do cument the procedure. See dictated report from cardiology.
[2022-03-21] MEDS ORDERED: NALOXONE 0.4 MG/ML 1 ML VIAL IVP PRN (12:12)
--- NOTE | 2022-03-21 12:12 | P.PCN ---
Description of Procedure: PROCEDURES PERFORMED: Selective right lower extremity angiogram and runoff INDICATION: History of PAD with previous popliteal stenting and popliteal aneurysm, Marti class 3 claudication over last 6 weeks with abnormal ultrasound consistent with occluded stent CONSENT:I have discussed the risks, benefits and alternative therapies for the above-mentioned procedure and for both sedation/analgesia as well as necessary blood product administration, if indicated, as they pertain to this patient. The patient has indicated understanding and acceptance of the risks and procedures discussed. PROCEDURE: After the risks, benefits and alternatives of the above mentioned procedure explained in detail with the patient, informed consent was obtained. Patient was taken to the catheterization lab and prepped and draped in usual fashion. 1% lidocaine was used to anesthetize the left femoral area. A 5- Telugu sheath was placed in the left common femoral artery using modified Seldinger technique. A 5-Telugu rim catheter was advanced into the right common iliac and selective right lower extremity angiogram was performed with DSA imaging. Patient tolerated the procedure well. Given failed stent and extensive disease recommended surgical evaluation. There was a large amount of calcium noted on ultrasound of the left femoral site and therefore decision was made for a manual pull. Patient was transported back to the post catheterization holding area in stable condition. Conscious Sedation: Patient was monitored under the direct supervision of vision of myself for conscious sedation using Versed and fentanyl for a total duration of 28 minutes HEMODYNAMICS: Ao: 133/77 Right lower extremity: Right common iliac artery: There is diffuse mild 20% stenosis and somewhat aneurysmal. Right external iliac artery: There is no significant stenosis. Right internal iliac artery: There is no significant stenosis. Right common femoral artery: There is diffuse mild 20% stenosis and somewhat aneurysmal. Right profunda: There is no significant stenosis. Right SFA: There is a mid SFA 90% stenosis followed by a distal SFA 100% stenosis Right popliteal artery: There is a long SFA into popliteal stent which has covered the popliteal aneurysm and is 100% occluded. Right tibioperoneal trunk: There are diffuse collaterals which appear to show the TP trunk occluded distally Right anterior tibial artery: The AT is now 100% occluded Right porterior tibial artery: There are diffuse collaterals with reconstitution of the proximal PT. Right peroneal artery: There are diffuse collaterals with reconstitution of the proximal peroneal artery. FINAL IMPRESSION: 1. Peripheral arterial disease as described above. 2. Occluded distal SFA into popliteal stents as well as some more progression of mid SFA 90% stenosis. 3. Previous popliteal stent had only flow to the anterior tibial artery which is now occluded however good reconstitution of the AT and peroneal arteries. PLAN: 1. Aggressive risk factor modification per most recent ACC/AHA guidelines. 2. Recommend surgical evaluation for possible bypass given location of stents and multiple failures with poor runoff.
[2022-03-21] MEDS ORDERED: SODIUM CHLORIDE 0.9% 1,000 ML in EMPTY BAG 1 BAG IV SCH (12:15)
[2022-03-21 16:59] VITALS: BP 134/78; PULSE 60
== END 2022-03-21 15:50 | disposition home or self-care (01) ==
LOC: CATHCVL 06:57
PROVIDERS: ATTEND Internal Medicine
DX: I73.9 Peripheral vascular disease, unspecified (principal); I25.10 Atherosclerotic heart disease of native coronary artery without angina pectoris; I10 Essential (primary) hypertension; E78.5 Hyperlipidemia, unspecified; F17.210 Nicotine dependence, cigarettes, uncomplicated; Z79.82 Long term (current) use of aspirin; Z79.899 Other long term (current) drug therapy
CPT/HCPCS: 36245; 75710; 80048; 85025; C1769 ×4; C1894 ×2; J2250; J2001; J3010; Q9966

== ENCOUNTER 2022-04-01 17:25 | Inpatient (IN) | payer MEDICARE ==
[2022-04-01 18:37] LABS: Basophils # (A) 0.1 k/uL (0-0.2); Basophils % (A) 1 %; Eosinophils # (A) 0.5 k/uL (0-0.7); Eosinophils % (A) 5 %; HCT 41.5 % (39.0-53.0); HGB 14.5 gm/dL (13.0-17.5); Lymphocytes % (A) 20 %; MCH 35.4 pg (25.0-35.0); MCHC 34.8 g/dL (31.0-37.0); MCV 101.7 fL (80.0-100.0); Mean Platelet Volume 9.4; Monocytes # (A) 0.6 k/uL (0-1.0); Monocytes % (A) 6 %; Neutrophils # (A) 6.5 k/uL (1.3-7.7); Neutrophils % (A) 66 %; Platelet Count 194 k/uL (150-450); RBC 4.08 m/uL (4.30-5.90); RDW 12.3 % (11.5-15.5); WBC 9.8 k/uL (3.8-10.6)
[2022-04-01 18:41] LABS: ALT 24 U/L (4-49); AST 23 U/L (17-59); African American GFR (CKD) >90 (>60 ml/min/1.73 sqM); Albumin 4.2 g/dL (3.5-5.0); Alkaline Phosphatase 100 U/L (38-126); Anion Gap 12 mmol/L; Blood Urea Nitrogen 20 mg/dL (9-20); Calcium 9.3 mg/dL (8.4-10.2); Carbon Dioxide 24 mmol/L (22-30); Chloride 102 mmol/L (98-107); Creatine Kinase 47 U/L (55-170); Glucose 110 mg/dL (74-99); Non-African American GFR(CKD) 88 (>60 ml/min/1.73 sqM); Partial Thromboplastin Time 24.3 sec (22.0-30.0); Potassium 4.1 mmol/L (3.5-5.1); Prothrombin Time 10.6 sec (9.0-12.0); Sodium 138 mmol/L (137-145); Total Bilirubin 0.4 mg/dL (0.2-1.3)
[2022-04-01] MEDS ORDERED: HYDROmorphone 0.5 MG/0.5 ML SYRINGE IVP STA ×2 (18:50→21:39)
[2022-04-01] MEDS ORDERED: KETOROLAC 15 MG/ML 1 ML VIAL IVP STA (18:50)
--- NOTE | 2022-04-01 18:55 | ED ---
General Adult HPI - General Chief complaint: Extremity Problem,Nontraumatic Stated complaint: right leg pain, trouble walking Time Seen by Provider: 04/01/22 17:25 Source: patient, RN notes reviewed, old records reviewed Mode of arrival: ambulatory Limitations: no limitations - History of Present Illness Initial comments: This a 76-year-old male who presents emergency Department complaining that anytime he walks he gets severe calf pain. Patient has been told he has some aneurysms in his leg and maybe in his abdomen. Patient was scheduled to get an angiogram of his abdomen and bilateral legs but he's states the pain is getting worse especially anytime he moves so he decided come to the emergency department and his vascular surgeon wants to scan done early. Patient states his foot is also quite painful on the right. Dr. Hicks I did contact me and did want the CAT scan angiogram done today. Patient denies any fever chills or cough patient denies any redness. Patient denies any other symptoms at this time - Related Data Home Medications Medication Instructions Recorded Confirmed Aspirin [Adult Low Dose Aspirin EC] 81 mg PO DAILY 03/19/18 03/21/22 Losartan [Cozaar] 50 mg PO DAILY 03/19/18 03/21/22 Multivit-Min/FA/Lycopen/Lutein 1 tab PO DAILY 04/27/18 03/21/22 [Centrum Silver Men Tablet] Ezetimibe [Zetia] 10 mg PO HS 01/27/22 03/21/22 Metoprolol Succinate (ER) [Toprol 25 mg PO HS 03/20/22 03/21/22 Xl] Atorvastatin [Lipitor] 80 mg PO HS 03/21/22 03/21/22 Naproxen Sodium [Aleve] 440 mg PO BID PRN 03/21/22 03/21/22 Previous Rx's Medication Instructions Recorded Clopidogrel [Plavix] 75 mg PO DAILY tab 01/31/22 Allergies Allergy/AdvReac Type Severity Reaction Status Date / Time meperidine [From Demerol] AdvReac Nausea Verified 04/01/22 17:29 Review of Systems ROS Statement: Those systems with pertinent positive or pertinent negative responses have been documented in the HPI. ROS Other: All systems not noted in ROS Statement are negative. Past Medical History Past Medical History: Coronary Artery Disease (CAD), Hyperlipidemia, Hypertension, Vascular Disorder Additional Past Medical History / Comment(s): hemorrhoids,cramping rt leg with activity History of Any Multi-Drug Resistant Organisms: None Reported Past Surgical History: Adenoidectomy, Coronary Bypass/CABG, Heart Catheterization, Hernia Repair, Tonsillectomy Additional Past Surgical History / Comment(s): Aortogram, ibrahima inguinal hernias, lung bx, stents in right leg Past Anesthesia/Blood Transfusion Reactions: No Reported Reaction Past Psychological History: No Psychological Hx Reported Smoking Status: Former smoker Past Alcohol Use History: None Reported Past Drug Use History: None Reported - Past Family History Mother Family Medical History: Cancer General Exam - General Exam Comments Initial Comments: GENERAL: Patient is well-developed and well-nourished. Patient is nontoxic and well- hydrated and is in mild distress. ENT: Neck is soft and supple. No significant lymphadenopathy is noted. Oropharynx is clear. Moist mucous membranes. Neck has full range of motion without eliciting any pain. EYES: The sclera were anicteric and conjunctiva were pink and moist. Extraocular movements were intact and pupils were equal round and reactive to light. Eyeli ds were unremarkable. PULMONARY: Unlabored respirations. Good breath sounds bilaterally. No audible rales rhonchi or wheezing was noted. CARDIOVASCULAR: There is a regular rate and rhythm without any murmurs gallops or rubs. ABDOMEN: Soft and nontender with normal bowel sounds. SKIN: Skin is clear with no lesions or rashes and otherwise unremarkable. NEUROLOGIC: Patient is alert and oriented x3. Cranial nerves II through XII are grossly intact. Motor and sensory are also intact. Normal speech, volume and content. Symmetrical smile. MUSCULOSKELETAL: Normal extremities with adequate strength and full range of motion. Patient's foot is painful to touch. Patient's capillary refill is about 2 seconds but it is 2 seconds on all toes. I was unable to palpate any pulses. LYMPHATICS: No significant lymphadenopathy is noted PSYCHIATRIC: Normal psychiatric evaluation. Limitations: no limitations Course Vital Signs 04/01/22 17:28 Temperature 98.5 F Pulse Rate 74 Respiratory 20 Rate Blood Pressure 146/88 O2 Sat by Pulse 99 Oximetry Medical Decision Making - Medical Decision Making EKG shows sinus bradycardia with occasional PAC at 59 bpm NH interval is 194 QRS is 103 QT interval 09/19/1929 QTC is 423. Patient's EKG shows no ST segment elevation or depression CT angiogram of the abdomen aorta and runoff was interpreted by me. It showed proximal femoral artery occlusion proximal tibial artery occlusion with collateral flow to the ankle. I spoke with Dr. Perera he wanted the patient admitted put on heparin and seen b magda Hicks tomorrow. I spoke with Dr. Garcia he agreed to admit the patient admitted the patient I wrote admitting orders. - Lab Data Result diagrams: 04/01/22 18:21 04/01/22 18:21 Lab Results 04/01/22 04/01/22 04/01/22 Range/Units 18:21 18:21 18:21 WBC 9.8 (3.8-10.6) k/uL RBC 4.08 L (4.30-5.90) m/uL Hgb 14.5 (13.0-17.5) gm/dL Hct 41.5 (39.0-53.0) % MCV 101.7 H (80.0-100.0) fL MCH 35.4 H (25.0-35.0) pg MCHC 34.8 (31.0-37.0) g/dL RDW 12.3 (11.5-15.5) % Plt Count 194 (150-450) k/uL MPV 9.4 Neutrophils % 66 % Lymphocytes % 20 % Monocytes % 6 % Eosinophils % 5 % Basophils % 1 % Neutrophils # 6.5 (1.3-7.7) k/uL Lymphocytes # 2.0 (1.0-4.8) k/uL Monocytes # 0.6 (0-1.0) k/uL Eosinophils # 0.5 (0-0.7) k/uL Basophils # 0.1 (0-0.2) k/uL PT 10.6 (9.0-12.0) sec INR 1.0 (<1.2) APTT 24.3 (22.0-30.0) sec Sodium 138 (137-145) mmol/L Potassium 4.1 (3.5-5.1) mmol/L Chloride 102 (98-107) mmol/L Carbon Dioxide 24 (22-30) mmol/L Anion Gap 12 mmol/L BUN 20 (9-20) mg/dL Creatinine 0.79 (0.66-1.25) mg/dL Est GFR (CKD-EPI)AfAm >90 (>60 ml/min/1.73 sqM) Est GFR (CKD-EPI)NonAf 88 (>60 ml/min/1.73 sqM) Glucose 110 H (74-99) mg/dL Plasma Lactic Acid Catrachito (0.7-2.0) mmol/L Calcium 9.3 (8.4-10.2) mg/dL Total Bilirubin 0.4 (0.2-1.3) mg/dL AST 23 (17-59) U/L ALT 24 (4-49) U/L Alkaline Phosphatase 100 (38-126) U/L Creatine Kinase 47 L (55-170) U/L Total Protein 7.0 (6.3-8.2) g/dL Albumin 4.2 (3.5-5.0) g/dL 04/01/22 Range/Units 18:21 WBC (3.8-10.6) k/uL RBC (4.30-5.90) m/uL Hgb (13.0-17.5) gm/dL Hct (39.0-53.0) % MCV (80.0-100.0) fL MCH (25.0-35.0) pg MCHC (31.0-37.0) g/dL RDW (11.5-15.5) % Plt Count (150-450) k/uL MPV Neutrophils % % Lymphocytes % % Monocytes % % Eosinophils % % Basophils % % Neutrophils # (1.3-7.7) k/uL Lymphocytes # (1.0-4.8) k/uL Monocytes # (0-1.0) k/uL Eosinophils # (0-0.7) k/uL Basophils # (0-0.2) k/uL PT (9.0-12.0) sec INR (<1.2) APTT (22.0-30.0) sec Sodium (137-145) mmol/L Potassium (3.5-5.1) mmol/L Chloride (98-107) mmol/L Carbon Dioxide (22-30) mmol/L Anion Gap mmol/L BUN (9-20) mg/dL Creatinine (0.66-1.25) mg/dL Est GFR (CKD-EPI)AfAm (>60 ml/min/1.73 sqM) Est GFR (CKD-EPI)NonAf (>60 ml/min/1.73 sqM) Glucose (74-99) mg/dL Plasma Lactic Acid Catrachito 0.8 (0.7-2.0) mmol/L Calcium (8.4-10.2) mg/dL Total Bilirubin (0.2-1.3) mg/dL AST (17-59) U/L ALT (4-49) U/L Alkaline Phosphatase (38-126) U/L Creatine Kinase (55-170) U/L Total Protein (6.3-8.2) g/dL Albumin (3.5-5.0) g/dL Critical Care Time Critical Care Time: Yes Total Critical Care Time: 35 Disposition Clinical Impression: Femoral artery occlusion, Tibial artery occlusion, Extremity Problem,Nontraumatic Disposition: ADMITTED IP TO THIS HOSP Referrals: Hayley White MD [Primary Care Provider] - 1-2 days Time of Disposition: 20:31
--- NOTE | 2022-04-01 20:04 | CT ---
EXAMINATION TYPE: CT angio abd aorta w/Runoff DATE OF EXAM: 04/01/2022 COMPARISON: 01/27/2022 HISTORY: Cold foot-right CT DLP: 2055.8 mGycm Automated exposure control for dose reduction was used. CONTRAST: Performed without and with IV Contrast, patient injected with 125 mL of Isovue 370. Images obtained from the diaphragm to the floor of the pelvis without contrast. Images obtained from the diaphragm to the feet with the IV contrast. There are 3-D post processed images. There is some mild atelectasis at the right posterior lung base. Liver and spleen are intact. No panc reatic mass. The stomach is intact. Gallbladder is intact. The bile ducts are not dilated. There is no adrenal mass. Kidneys show satisfactory contrast opacification. No hydronephrosis. There is 1 cm cortical cyst lower pole left kidney. There is no retroperitoneal adenopathy. Ureters are not dilated. Bladder distends smoothly. No inguinal hernia. No free fluid in the pelvis. There are sigmo id diverticula. No diverticulitis. There is a 3 cm fat-containing umbilical hernia. Appendix is poste rior and appears normal. There is a 4 cm fusiform aneurysm of the lower abdominal aorta. There is aneurysm of the common inter nal and external iliac arteries bilaterally. Iliac arteries measure up to 2.5 cm. There is irregular plaque formation in the anterior abdominal aorta and the left internal iliac artery. There is arteria l flow in the femoral arteries bilaterally. There is subtotal occlusion of the proximal right femoral artery. There is more than 90% stenosis. Very little arterial flow was seen in the mid and right fem oral artery. This could be completely occluded. Left femoral artery shows variable plaque formation u p to 70% at the distal left femoral artery. There is no demonstrated flow in the right popliteal artery and the right posterior tibial artery. Th ere is right-sided popliteal artery endograft. 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 The aneurysm is thrombosed. 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 There is arterial flow demonstrated in the left posterior tibial artery and the poste rior tibial artery trifurcation. There is arterial flow demonstrated in the anterior and posterior ti bial artery at the left ankle. There is multi focal hemodynamic stenosis of the left anterior tibial artery. There is arterial opacification of the right posterior tibial artery through collateral vesse ls. No arterial flow seen in the right anterior tibial artery. There is arterial flow in the posterio r tibial artery at the distal metatarsals of both feet. There is dorsalis pedis artery flow in the le ft foot to the distal metatarsals. IMPRESSION: There is aneurysm of the lower abdominal aorta and the iliac arteries as above. No hemodynamic stenos is in the abdomen. There is occlusion of the proximal right femoral artery. 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 There is no flow in the proximal right tib ial artery. There is collateral flow and filling of the distal right posterior tibial artery at the a nkle. Thrombosis of the majority of the right femoral artery is a change compared to the old exam. Thrombos is of the popliteal endograft is unchanged. There appears to be improved arterial flow in the distal right posterior tibial artery compared to the old exam. Aneurysm of the distal femoral artery is unch anged. Aneurysm of the abdominal aorta and iliac arteries is unchanged.
[2022-04-01] MEDS ORDERED: HEPARIN SODIUM 1,000 UN/ML (10ML VL) IV ONE (20:19)
[2022-04-01] MEDS: HEPARIN SOD,PORK IN 0.45% NACL 25,000 UNIT in 0.45% NACL 1 250ML.BAG IV SCH (21:22)
[2022-04-01] MEDS ORDERED: SODIUM CHLORIDE 0.9% 1,000 ML IV ONE (21:26)
[2022-04-02] MEDS: HYDROmorphone 0.5 MG/0.5 ML SYRINGE IVP PRN ×2 (02:50→07:35)
[2022-04-02] MEDS: MULTIVITAMINS, THERA 1 EACH TAB PO SCH (07:35)
[2022-04-02] MEDS: ASPIRIN 81 MG PO SCH (07:35)
[2022-04-02] MEDS: LOSARTAN 50 MG TAB PO SCH (07:35)
[2022-04-02] MEDS: HYDROcodone/APAP 5-325MG 1 EACH TAB PO PRN (08:51)
[2022-04-02] MEDS ORDERED: CLOPIDOGREL 75 MG TAB PO SCH (09:00)
--- NOTE | 2022-04-02 10:35 | P.GSCN ---
History of Present Illness Consult date: 04/02/22 Reason for Consult: Arterial occlusion Requesting physician: Kade Shaver History of present illness: This is a pleasant 76-year-old male who presented to the emergency department yesterday evening complaining of right foot pain and Pain. He recently has been seen by vascular surgeon Dr. Hicks and was scheduled for an outpatient CT angiogram with runoff however patient states pain was getting worse and he came for further evaluation. He has a past medical history of coronary artery disease status post bypass/CABG, heart catheterization, hyperlipidemia, hypertension and vascular disorder with prior stenting and right lower extremity. Dr. Hicks was contacted today evening and ordered a CT angiogram abdomen aorta pelvis with runoff. 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 There is no flow in the proximal right tibial artery but there is collateral flow and filling in the distal right posterior tibial artery at the ankle. Patient currently states he has mostly pain in his foot when it is up at rest, when he is up and walking he has pain up into the right calf. Denies any pain in the left lower extremity. Denies any abdominal pain, chest pain or shortness of breath. He is able to move the right lower extremity including his toes. He has been started on a heparin drip. Review of Systems A 14 point review systems was completed all pertinent positives and negatives as stated in the HPI. Past Medical History Past Medical History: Coronary Artery Disease (CAD), Hyperlipidemia, Hypertension, Vascular Disorder Additional Past Medical History / Comment(s): hemorrhoids,cramping rt leg with activity History of Any Multi-Drug Resistant Organisms: None Reported Past Surgical History: Adenoidectomy, Coronary Bypass/CABG, Heart Catheterization, Hernia Repair, Tonsillectomy Additional Past Surgical History / Comment(s): Aortogram, ibrahima inguinal hernias, lung bx, stents in right leg, CBAG 2012 Past Anesthesia/Blood Transfusion Reactions: No Reported Reaction Past Psychological History: No Psychological Hx Reported Smoking Status: Former smoker Past Alcohol Use History: None Reported Additional Past Alcohol Use History / Comment(s): quit smoking Dec 2017 started smoking at age 26,1ppd Past Drug Use History: None Reported - Past Family History Mother Family Medical History: Cancer Medications and Allergies Home Medications Medication Instructions Recorded Confirmed Type Aspirin [Adult Low Dose Aspirin EC] 81 mg PO DAILY 03/19/18 04/01/22 History Losartan [Cozaar] 50 mg PO DAILY 03/19/18 04/01/22 History Multivit-Min/FA/Lycopen/Lutein 1 tab PO DAILY 04/27/18 04/01/22 History [Centrum Silver Men Tablet] Ezetimibe [Zetia] 10 mg PO HS 01/27/22 04/01/22 History Clopidogrel [Plavix] 75 mg PO DAILY tab 01/31/22 04/01/22 Rx Metoprolol Succinate (ER) [Toprol 25 mg PO HS 03/20/22 04/01/22 History Xl] Atorvastatin [Lipitor] 80 mg PO HS 03/21/22 04/01/22 History Naproxen Sodium [Aleve] 440 mg PO BID PRN 03/21/22 04/01/22 History Allergies Allergy/AdvReac Type Severity Reaction Status Date / Time meperidine [From Demerol] AdvReac Nausea Verified 04/01/22 21:27 Surgical - Exam Vital Signs Temp Pulse Resp BP Pulse Ox 98.5 F 74 20 146/88 99 04/01/22 17:28 04/01/22 17:28 04/01/22 17:28 04/01/22 17:28 04/01/22 17:28 General appearance: The patient is alert, oriented, appears in no acute distress. HET: Head is normocephalic and atraumatic. Pupils are equal and reactive. Neck: Supple without lymphadenopathy. Trachea midline. No audible carotid bruit. Heart: S1 S2. Regular rate and rhythm. Lungs: Clear to auscultation bilaterally. Abdomen: Soft, nontender, nondistended. Extremities: Normal skin color and turgor. Bubble bilateral femoral pulses, bright week. Right lower extremity with nonpalpable DP or PT pulses. Able to obtain monophasic PT Doppler signal. Good capillary refill, warm to touch, sensorimotor intact. Left lower extremity with palpable DP and PT pulses. Neurological: No focal deficits. Strength and sensation are grossly intact. Results - Labs 04/01/22 18:21 04/01/22 18:21 Abnormal Lab Results - Last 24 Hours (Table) 04/01/22 04/01/22 04/02/22 Range/Units 18:21 18:21 03:18 RBC 4.08 L (4.30-5.90) m/uL MCV 101.7 H (80.0-100.0) fL MCH 35.4 H (25.0-35.0) pg APTT 173.6 H* (22.0-30.0) sec Glucose 110 H (74-99) mg/dL Creatine Kinase 47 L (55-170) U/L Diabetes panel 04/01/22 Range/Units 18:21 Sodium 138 (137-145) mmol/L Potassium 4.1 (3.5-5.1) mmol/L Chloride 102 (98-107) mmol/L Carbon Dioxide 24 (22-30) mmol/L BUN 20 (9-20) mg/dL Creatinine 0.79 (0.66-1.25) mg/dL Glucose 110 H (74-99) mg/dL Calcium 9.3 (8.4-10.2) mg/dL AST 23 (17-59) U/L ALT 24 (4-49) U/L Alkaline Phosphatase 100 (38-126) U/L Total Protein 7.0 (6.3-8.2) g/dL Albumin 4.2 (3.5-5.0) g/dL Calcium panel 04/01/22 Range/Units 18:21 Calcium 9.3 (8.4-10.2) mg/dL Albumin 4.2 (3.5-5.0) g/dL Pituitary panel 04/01/22 Range/Units 18:21 Sodium 138 (137-145) mmol/L Potassium 4.1 (3.5-5.1) mmol/L Chloride 102 (98-107) mmol/L Carbon Dioxide 24 (22-30) mmol/L BUN 20 (9-20) mg/dL Creatinine 0.79 (0.66-1.25) mg/dL Glucose 110 H (74-99) mg/dL Calcium 9.3 (8.4-10.2) mg/dL Adrenal panel 04/01/22 Range/Units 18:21 Sodium 138 (137-145) mmol/L Potassium 4.1 (3.5-5.1) mmol/L Chloride 102 (98-107) mmol/L Carbon Dioxide 24 (22-30) mmol/L BUN 20 (9-20) mg/dL Creatinine 0.79 (0.66-1.25) mg/dL Glucose 110 H (74-99) mg/dL Calcium 9.3 (8.4-10.2) mg/dL Total Bilirubin 0.4 (0.2-1.3) mg/dL AST 23 (17-59) U/L ALT 24 (4-49) U/L Alkaline Phosphatase 100 (38-126) U/L Total Protein 7.0 (6.3-8.2) g/dL Albumin 4.2 (3.5-5.0) g/dL Assessment and Plan Assessment: 1. Right lower extremity pain 2. Right femoral artery occlusion 3. 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 Thrombosis of right popliteal endograft 5. History of peripheral vascular disease 6. Coronary artery disease status post CABG, stenting 7. Former smoker Plan: 1. Vein mapping ordered bilateral lower extremities 2. Continue heparin drip 3. Continue Plavix 4. Patient may have heart healthy diet 5. Further recommendations forthcoming per Vascular surgeon The impression and plan of care has been dictated as directed. Dr. Eden I performed a history and examination of this patient, discussed the same with the dictator. I agree with the dictator's note ,documented as a scribe. Any additional findings or plans will be noted. Reviewed CTA with patient and Dr. Hicks. Patient has significant chronic disease as well as a large iliac aneurysm which requires intervention. Plan for EVAR and right iliac artery stenting this week and then right lower extremity bypass. Discussed plan with patient who is agreeable.
[2022-04-02] MEDS: HYDROmorphone 1 MG/ML 1 ML SYRINGE IVP PRN ×3 (11:20→21:38)
[2022-04-02] MEDS: HEPARIN SOD,PORK IN 0.45% NACL 25,000 UNIT in 0.45% NACL 1 250ML.BAG IV SCH (11:20)
--- NOTE | 2022-04-02 15:50 | P.HPIM ---
History of Present Illness H&P Date: 04/02/22 Randell Machado, is a 76 year-old male who presented to [facility] ER with a chief complaint of bilateral calf pain especially after walking. 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 Patient was admitted to medical floor he was started on IV heparin vascular surgery consultation was requested Past Medical History Past Medical History: Coronary Artery Disease (CAD), Hyperlipidemia, Hypertension, Vascular Disorder Additional Past Medical History / Comment(s): hemorrhoids,cramping rt leg with activity History of Any Multi-Drug Resistant Organisms: None Reported Past Surgical History: Adenoidectomy, Coronary Bypass/CABG, Heart Catheterization, Hernia Repair, Tonsillectomy Additional Past Surgical History / Comment(s): Aortogram, ibrahima inguinal hernias, lung bx, stents in right leg, CBAG 2012 Past Anesthesia/Blood Transfusion Reactions: No Reported Reaction Past Psychological History: No Psychological Hx Reported Smoking Status: Former smoker Past Alcohol Use History: None Reported Additional Past Alcohol Use History / Comment(s): quit smoking Dec 2017 started smoking at age 26,1ppd Past Drug Use History: None Reported - Past Family History Mother Family Medical History: Cancer Medications and Allergies Home Medications Medication Instructions Recorded Confirmed Type Aspirin [Adult Low Dose Aspirin EC] 81 mg PO DAILY 03/19/18 04/01/22 History Losartan [Cozaar] 50 mg PO DAILY 03/19/18 04/01/22 History Multivit-Min/FA/Lycopen/Lutein 1 tab PO DAILY 04/27/18 04/01/22 History [Centrum Silver Men Tablet] Ezetimibe [Zetia] 10 mg PO HS 01/27/22 04/01/22 History Clopidogrel [Plavix] 75 mg PO DAILY tab 01/31/22 04/01/22 Rx Metoprolol Succinate (ER) [Toprol 25 mg PO HS 03/20/22 04/01/22 History Xl] Atorvastatin [Lipitor] 80 mg PO HS 03/21/22 04/01/22 History Naproxen Sodium [Aleve] 440 mg PO BID PRN 03/21/22 04/01/22 History Allergies Allergy/AdvReac Type Severity Reaction Status Date / Time meperidine [From Demerol] AdvReac Nausea Verified 04/01/22 21:27 Physical Exam Vitals: Vital Signs Temp Pulse Pulse Resp BP BP Pulse Ox 04/02/22 04:00 97.5 F L 64 18 147/91 94 L 04/02/22 02:00 84 18 04/02/22 00:00 97.6 F 84 18 139/86 94 L 04/01/22 21:27 63 16 149/98 97 04/01/22 21:26 97.9 F 61 16 138/101 96 04/01/22 17:28 98.5 F 74 20 146/88 99 Intake and Output 04/01/22 04/01/22 04/02/22 14:59 22:59 06:59 Intake Total 118.416 Balance 118.416 Intake: Intake, IV Titration 118.416 Amount Heparin Sod,Pork in 0.45% 118.416 NaCl 25,000 unit In 0.45 % NaCl 1 250ml.bag @ 18 UNITS/KG/HR 15.513 mls/hr IV .[id number] [facility] Rx#: [id number] Other: Voiding Method Urinal # Voids 2 Weight 86.183 kg 86.183 kg In general patient is alert and oriented x 3 in no distress HEENT head normocephalic and atraumatic Neck is supple no JVD no goiter no lymphadenopathy no carotid bruit Chest examination is clear to auscultation no crackles no wheezing Cardiac exam reveals regular heart sounds S1 and S2 no gallops no murmurs Abdomen is soft nontender no organomegaly with normal bowel sounds Extremity exam reveals no edema no cyanosis or clubbing Neurological examination reveals no gross focal deficits Results CBC & Chem 7: 04/01/22 18:21 04/01/22 18:21 Labs: Abnormal Lab Results - Last 24 Hours (Table) 04/01/22 04/01/22 04/02/22 Range/Units 18:21 18:21 03:18 RBC 4.08 L (4.30-5.90) m/uL MCV 101.7 H (80.0-100.0) fL MCH 35.4 H (25.0-35.0) pg APTT 173.6 H* (22.0-30.0) sec Glucose 110 H (74-99) mg/dL Creatine Kinase 47 L (55-170) U/L Thrombosis Risk Factor Assmnt - Choose All That Apply Each Risk Factor Represents 3 Points: Age 75 years or older Thrombosis Risk Factor Assessment Total Risk Factor Score: 3 Thrombosis Risk Factor Assessment Level: Moderate Risk Assessment and Plan Plan: Right lower extremity pain with evidence of right femoral artery occlusion and thrombosis of the right popliteal endograft Abdominal aortic aneurysm Known history of severe peripheral vascular disease Known history of coronary artery disease status post coronary artery bypass graft surgery and history of angioplasty and stent placement Patient has prolonged history of smoking he stated that he quit smoking Underlying history of hypertension Underlying history of hyperlipidemia maintained on Lipitor and Zetia At this time patient is admitted to medical floor He was started on IV heparin and oral plavix and aspirin Home medications reviewed and reordered Vascular surgery consultation requested Will follow closely
[2022-04-02] MEDS: EZETIMIBE 10 MG TAB PO SCH (19:29)
[2022-04-02] MEDS: ATORVASTATIN 80 MG TAB PO SCH (19:29)
[2022-04-02] MEDS: METOPROLOL SUCCINATE (ER) 25 MG TAB.ER.24H PO SCH (19:29)
[2022-04-03] MEDS: HYDROmorphone 1 MG/ML 1 ML SYRINGE IVP PRN ×5 (01:57→22:30)
[2022-04-03] MEDS: HEPARIN SOD,PORK IN 0.45% NACL 25,000 UNIT in 0.45% NACL 1 250ML.BAG IV SCH ×2 (03:49→18:37)
[2022-04-03] MEDS ORDERED: ONDANSETRON 4 MG/2 ML VIAL IVP ONE (06:24)
[2022-04-03] MEDS: LACTATED RINGERS 1,000 ML IV SCH (06:37)
[2022-04-03] MEDS: MULTIVITAMINS, THERA 1 EACH TAB PO SCH (07:58)
[2022-04-03] MEDS: LOSARTAN 50 MG TAB PO SCH (08:15)
[2022-04-03 08:27] LABS: Basophils % (A) 0 %; Eosinophils # (A) 0.6 k/uL (0-0.7); Eosinophils % (A) 5 %; HCT 43.3 % (39.0-53.0); HGB 14.6 gm/dL (13.0-17.5); Lymphocytes # (A) 2.4 k/uL (1.0-4.8); Lymphocytes % (A) 22 %; MCH 34.4 pg (25.0-35.0); MCHC 33.6 g/dL (31.0-37.0); MCV 102.4 fL (80.0-100.0); Mean Platelet Volume 9.2; Monocytes # (A) 0.6 k/uL (0-1.0); Monocytes % (A) 5 %; Neutrophils # (A) 7.2 k/uL (1.3-7.7); Neutrophils % (A) 65 %; Platelet Count 200 k/uL (150-450); RBC 4.23 m/uL (4.30-5.90); WBC 11.1 k/uL (3.8-10.6)
[2022-04-03 08:44] LABS: ALT 24 U/L (4-49); AST 26 U/L (17-59); African American GFR (CKD) >90 (>60 ml/min/1.73 sqM); Albumin 4.3 g/dL (3.5-5.0); Alkaline Phosphatase 78 U/L (38-126); Anion Gap 10 mmol/L; Blood Urea Nitrogen 20 mg/dL (9-20); Calcium 8.8 mg/dL (8.4-10.2); Carbon Dioxide 22 mmol/L (22-30); Chloride 104 mmol/L (98-107); Glucose 114 mg/dL (74-99); Non-African American GFR(CKD) 83 (>60 ml/min/1.73 sqM); Potassium 4.4 mmol/L (3.5-5.1); Sodium 136 mmol/L (137-145); Total Bilirubin 0.9 mg/dL (0.2-1.3)
--- NOTE | 2022-04-03 08:44 | US ---
EXAMINATION TYPE: US vein mapping BILAT DATE OF EXAM: 04/02/2022 11:08 AM COMPARISON: NONE CLINICAL HISTORY: thrombosis/aneurysm rt fem artery. Vein mapping for procedure SIDE PERFORMED: Bilateral TECHNIQUE: Lower extremity saphenous vein is examined and measured utilizing real time linear array sonography. Patient History: Smoker: Yes Heart Disease: Yes Previous DVT: No Vascular Surgery: Yes Discoloration: Yes Hypertension: Yes Diabetes: No Paralysis: No Varicosities: Yes Edema: Yes DUPLEX FINDINGS: Greater Saphenous: Color flow seen Measurements in mm: Right Greater Saphenous: AP x Width Groin: 6.1 x 5.7mm High Thigh: 6.5 x 7.1 mm Mid Thigh: 6.6 x 7.1 mm Above Knee: 3.9 x 3.9 mm Knee: 4.6 x 4.1 mm Below Knee: 4.1 x 4.8 mm Mid Calf: 4.4 x 4.4 mm At Ankle: 3.1 x 3.6 mm Left Greater Saphenous: Patient reports Left GSV removed for bypass in 2012 Groin: 4.2 x 4.7 mm High Thigh: 3.2 x 3.8 mm Mid Thigh: 3.3 x 3.4 mm Above Knee: 2.1 x 2.6 mm Knee: Not visualized Below Knee: 3.3 x 3.3 mm Mid Calf: 2.8 x 3.4 mm At Ankle: 2.3 x 2.1 mm Left Lesser Saphenous: Not visualized. IMPRESSION: 1. Bilateral GSV measurements listed above. 2. Performing surgeon to determine viability as conduit.
--- NOTE | 2022-04-03 09:41 | P.PN ---
Subjective Progress Note Date: 04/03/22 Randell Machado, is a 76 year-old male who presented to [facility] ER with a chief complaint of bilateral calf pain especially after walking. 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 Patient was admitted to medical floor he was started on IV heparin vascular surgery consultation was requested On 04/03/2022 patient is alert and oriented 3. Patient was evaluated by vascular surgery and plans for EVAR and right iliac artery stenting. With possible right lower extremity bypass Friday. Heparin has been turned off since 2 AM this morning for surgical intervention. At this time patient denies chest pain or shortness breath. Patient denies nausea vomiting or diarrhea. Patient denies any urinary burning or frequency. Current vital signs temp 98.7, heart rate 64, respiratory rate 16 blood pressure 147/90 to 95% on room air Objective - Vital Signs Vital signs: Vital Signs Temp 98.7 F 04/03/22 08:00 Pulse 64 04/03/22 08:00 Resp 16 04/03/22 08:00 BP 147/92 04/03/22 08:00 Pulse Ox 95 04/03/22 08:00 FiO2 Intake & Output 04/02/22 04/03/22 04/03/22 18:59 06:59 18:59 Intake Total 227.401 368.041 Balance 227.401 368.041 Intake: Intake, IV Titration 102.401 128.041 Amount Heparin Sod,Pork in 0.45% 102.401 128.041 NaCl 25,000 unit In 0.45 % NaCl 1 250ml.bag @ 18 UNITS/KG/HR 15.513 mls/hr IV .Q16H7M [facility] Rx#: [id number] Oral 125 240 Other: Voiding Method Urinal Toilet # Voids 1 2 1 - Exam In general patient is alert and oriented x 3 in no distress HEENT head normocephalic and atraumatic Neck is supple no JVD no goiter no lymphadenopathy no carotid bruit Chest examination is clear to auscultation no crackles no wheezing Cardiac exam reveals regular heart sounds S1 and S2 no gallops no murmurs Abdomen is soft nontender no organomegaly with normal bowel sounds Extremity exam reveals no edema no cyanosis or clubbing Neurological examination reveals no gross focal deficits - Labs CBC & Chem 7: 04/03/22 07:34 04/03/22 07:34 Labs: Abnormal Lab Results - Last 24 Hours (Table) 04/02/22 04/02/22 04/03/22 Range/Units 12:25 20:05 07:34 WBC 11.1 H (3.8-10.6) k/uL RBC 4.23 L (4.30-5.90) m/uL MCV 102.4 H (80.0-100.0) fL APTT 84.1 H 52.7 H (22.0-30.0) sec Sodium (137-145) mmol/L Glucose (74-99) mg/dL 04/03/22 Range/Units 07:34 WBC (3.8-10.6) k/uL RBC (4.30-5.90) m/uL MCV (80.0-100.0) fL APTT (22.0-30.0) sec Sodium 136 L (137-145) mmol/L Glucose 114 H (74-99) mg/dL Assessment and Plan Plan: Right lower extremity pain with evidence of right femoral artery occlusion and thrombosis of the right popliteal endograft Abdominal aortic aneurysm Known history of severe peripheral vascular disease Known history of coronary artery disease status post coronary artery bypass graft surgery and history of angioplasty and stent placement Patient has prolonged history of smoking he stated that he quit smoking Underlying history of hypertension Underlying history of hyperlipidemia maintained on Lipitor and Zetia At this time patient is admitted to medical floor Heparin DC'd per vascular surgery Plans for EVAR and right iliac artery stenting on 04/03/2022 Tentative plans for right lower extremity bypass on Friday Repeat labs ordered Will follow closely
--- NOTE | 2022-04-03 11:38 | P.PN ---
Subjective Progress Note Date: 04/03/22 The patient seen and examined today as a follow-up. He is scheduled to undergo endovascular abdominal aortic repair this afternoon with Dr. Hicks. He denies any chest pain, shortness of breath, abdominal pain, nausea or vomiting. Right lower extremity pain improved some. He has still has good range of motion. Vein mapping was completed. Heparin was shut off this morning at 2 AM. Objective - Vital Signs Vital signs: Vital Signs Temp 98.7 F 04/03/22 08:00 Pulse 64 04/03/22 08:00 Resp 16 04/03/22 08:00 BP 147/92 04/03/22 08:00 Pulse Ox 95 04/03/22 08:00 FiO2 Intake & Output 04/02/22 04/03/22 04/03/22 18:59 06:59 18:59 Intake Total 227.401 368.041 Balance 227.401 368.041 Intake: Intake, IV Titration 102.401 128.041 Amount Heparin Sod,Pork in 0.45% 102.401 128.041 NaCl 25,000 unit In 0.45 % NaCl 1 250ml.bag @ 18 UNITS/KG/HR 15.513 mls/hr IV .Q16H7M [facility] Rx#: [id number] Oral 125 240 Other: Voiding Method Urinal Toilet # Voids 1 2 1 - Exam General appearance: The patient is alert, oriented, appears in no acute distress. HET: Head is normocephalic and atraumatic. Pupils are equal and reactive. Neck: Supple without lymphadenopathy. Trachea midline. No audible carotid bruit. Heart: S1 S2. Regular rate and rhythm. Lungs: Clear to auscultation bilaterally. Abdomen: Soft, nontender, nondistended. Extremities: Normal skin color and turgor. Right lower extremity with nonpalpable DP or PT pulses. Good capillary refill, warm to touch, sensorimotor intact. Left lower extremity with palpable DP and PT pulses. Neurological: No focal deficits. Strength and sensation are grossly intact. - Labs CBC & Chem 7: 04/03/22 07:34 04/03/22 07:34 Labs: Abnormal Lab Results - Last 24 Hours (Table) 04/02/22 04/02/22 04/03/22 Range/Units 12:25 20:05 07:34 WBC 11.1 H (3.8-10.6) k/uL RBC 4.23 L (4.30-5.90) m/uL MCV 102.4 H (80.0-100.0) fL APTT 84.1 H 52.7 H (22.0-30.0) sec Assessment and Plan Assessment: 1. Right lower extremity pain 2. Right femoral artery occlusion 3. Abdominal aortic aneurysm, 4 cm per CTA 4. Thrombosis of right popliteal endograft 5. History of peripheral vascular disease 6. Coronary artery disease status post CABG, stenting 7. Former smoker Plan: 1. Vein mapping ordered bilateral lower extremities 2. Hold heparin drip 3. Hold Plavix and aspirin 4. Nothing by mouth 5. Plan to proceed with either this afternoon. Procedure discussed with patient and his at the bedside including risks and benefits. Patient seemingly understands and agrees to proceed 6. Plan for femoral/tibial artery bypass Friday The impression and plan of care has been dictated as directed. Dr. Hicks I performed a history and examination of this patient, discussed the same with the dictator. I agree with the dictator's note ,documented as a scribe. Any additional findings or plans will be noted.
[2022-04-03] MEDS ORDERED: PROTAMINE SULFATE 10 MG/ML 5 ML VIAL IV ONE (12:10)
[2022-04-03] MEDS ORDERED: ONDANSETRON 4 MG/2 ML VIAL ONE (12:10)
[2022-04-03] MEDS ORDERED: SUCCINYLCHOLINE CHLORIDE 200 MG/10 ML VIAL IV ONE (12:10)
[2022-04-03] MEDS ORDERED: HEPARIN SODIUM,PORCINE 10,000 UNIT/ML 1 ML VIAL ONE (12:10)
[2022-04-03] MEDS ORDERED: LIDOCAINE 2% INJ 20 MG/ML (2 ML VIAL) ONE (12:10)
[2022-04-03] MEDS ORDERED: HYDROmorphone (PF) 1 MG/ML ONE (12:10)
[2022-04-03] MEDS ORDERED: ROCURONIUM 10 MG/ML (5 ML VIAL) IV ONE (12:10)
[2022-04-03] MEDS ORDERED: PHENYLEPHRINE-0.9% NACL SYG 1,000 MCG/10 ML SYRINGE ONE (12:10)
[2022-04-03] MEDS ORDERED: fentaNYL (PF) 50 MCG/ML 2 ML AMP ONE (12:10)
[2022-04-03] MEDS ORDERED: PROPOFOL 10 MG/ML 20 ML VIAL IV ONE (12:10)
[2022-04-03] MEDS ORDERED: METOPROLOL TARTRATE 5 MG/5 ML VIAL IVP ONE (12:10)
[2022-04-03] MEDS ORDERED: MIDAZOLAM 2 MG/2 ML VIAL ONE (12:10)
[2022-04-03] MEDS ORDERED: NEOSTIGMINE 1 MG/ML 10 ML VIAL ONE (12:10)
[2022-04-03] MEDS ORDERED: DEXAMETHASONE SOD PHOSPHATE 4 MG/ML 1 ML VIAL ONE (12:10)
[2022-04-03] MEDS ORDERED: ePHEDrine 50 MG/ML 1 ML VIAL ONE (12:10)
[2022-04-03] MEDS ORDERED: ESMOLOL 100 MG/10 ML VIAL ONE (12:10)
[2022-04-03] MEDS ORDERED: IV FLUID CONTINUATION 1,000 ML IV ONE ×2 (13:34)
[2022-04-03] MEDS ORDERED: IOPAMIDOL-250 100ML BTL INTRAARTER ONE ×2 (15:45)
[2022-04-03] MEDS: ASPIRIN 81 MG PO SCH (16:12)
--- NOTE | 2022-04-03 17:09 | P.OP ---
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 Ultrasound-guided bilateral common femoral artery access 2. Percutaneous Endovascular aortic repair with [place] device. Surgeon: Cinthya Hicks DO Anesthesia: General Estimated blood loss: 75 mL Complications: None Condition: Stable Disposition: Stable, palpable femoral pulses bilaterally. Palpable dorsalis pedis on the left as prior to surgery Indications: The patient is a 76-year-old male with multiple significant areas of aneurysmal disease as well as occlusive disease. He was initially treated for a right popliteal artery aneurysm with a stent that subsequently thrombosed and upon workup was found to be a candidate for need for bypass, during that workup he was found to have a 3.5 cm left iliac aneurysm and a 3.9 cm abdominal aortic aneurysm it was decided to go forward first with repair of these things, he was initially scheduled as an outpatient but had severe worsening of his lower extremity pain therefore his surgical timing was advanced to inpatient at this time. Risks and benefits of going forward with procedure including but not limited to bleeding, infection, rupture of the aneurysm, , cardiac and pulmonary consultations were all discussed. The patient and family seemly understood and were willing to proceed. Operative narrative: After written and informed consent was obtained from the patient all risks benefits and complications were described the patient was brought to the [employer] and laid in a supine position. The area of the groins were prepped and draped in usual sterile fashion after appropriate anesthetic was performed per the anesthesiologist. A timeout was performed in normal fashion and antibiotics were administered prior to incisions. Utilizing ultrasound bilateral common femoral arteries were visualized demonstrating patency with moderate calcification. Under ultrasound guidance utilizing a multipurpose needle bilateral common femoral arteries were accessed and guidewire was placed followed by deployment of 2 Perclose closure devices for each femoral artery. On the left, there was non-take of the portion of the Perclose therefore a third was placed in the 12 o'clock position. Utilizing Seldinger technique and 8-Mexican sheath was then placed and patient was administered heparin and followed with ACTs. 035 Glidewire was then placed up the right femoral sheath and exchanged for a Lunderquist wire through an angled glide catheter. The left femoral artery was then utilized and guidewire was placed followed by pigtail catheter and aortogram was obtained. Utilizing the Lunderquist wire serial dilation of the right femoral artery was performed then a 26 x 80 mm main body device was then loaded over the guidewire after the 8- Mexican sheath was removed. Delivery system was then placed 1 cm proximal to the intended landing site and the aortic body was oriented for appropriate access for the contralateral limb. Delivery system was then retracted out of the sheath and the aortic body radiopaque markers were verified to be in the correct position. First segment of the graft was then deployed in normal fashion by releasing and pulling the knob in normal fashion. Balloon injection port was then inflated utilizing a 4-1 saline contrast mixture in order to open the mid crown. Balloon was then deflated. Precise positioning was then performed with utilizing the radiopaque markers and parallax was removed and our to land at the renal arteries. Pigtail catheter was then retracted away from the proximal stent and the proximal stent was released in normal fashion. Polymer was then utilized and filled through the polymer port which was visualized under fluoroscopy. The stiff Lunderquist wire was then retracted within the ipsilateral limb. Attention was then placed to accessing the contralateral limb. Utilizing the Glidewire and angled glide catheter the contralateral limb was accessed and pigtail catheter was placed. Pigtail catheter was then spun to verify intragraft cannulation. A stiff wire was then placed within the pigtail catheter and retrograde angiogram was obtained demonstrating the internal iliac artery takeoff. Measurements were obtained and a 28 x 140 mm Ovation limb was chosen to be deployed. Serial dilation of the left femoral was performed followed by standard deployment of the previously decided upon graft limb. Once completed the aortic main body was completely deployed in normal fashion. Utilizing the balloon, balloon angioplasty was performed at the ring to further mold the polymer to the aortic neck. Once completed the aortic body deployment sheath was removed in normal fashion. Pigtail catheter was then placed over the Lunderquist wire and retrograde angiogram was obtained with measurements to the internal iliac artery on the ipsilateral limb. A 18 x 120mm Ovation limb was chosen and deployed in normal fashion. Once completed two 12 x 40mm balloons were placed up each iliac limb and balloon angioplasty was performed through its entirety. Once completed balloons were removed and pigtail catheter was placed above the graft and final angiogram was obtained demonstrating exclusion of the aneurysm proximally. There did appear to be evidence of an endoleak and after multiple imaging pictures were performed, it appeared to be a 1B endoleak from the left iliac limb. A molding balloon was then used to the area of the larger portion of the limb repeat imaging still showed further endoleak. At that time it was decided to extend the limb with a contralateral limb extension a 28 x 120mm. After this repeat imaging showed no evidence of further endoleak. All guidewires and catheters were then removed and the Perclose closure devices were closed in normal fashion. the right groin site had some continued bleeding therefore an 8 Angio-Seal was utilized. The areas were then cleansed and dressings were placed. The patient tolerated procedure wel. The patient maintained palpable femoral pulses bilaterally. He had a palpable left dorsalis pedis as prior to surgery.
[2022-04-03 17:16] LABS: Glucose,Whole Blood 94 mg/dL (70-110)
[2022-04-03] MEDS: ATORVASTATIN 80 MG TAB PO SCH (19:23)
[2022-04-03] MEDS: METOPROLOL SUCCINATE (ER) 25 MG TAB.ER.24H PO SCH (19:23)
[2022-04-03] MEDS: EZETIMIBE 10 MG TAB PO SCH (19:23)
[2022-04-04] MEDS: HYDROmorphone 1 MG/ML 1 ML SYRINGE IVP PRN ×4 (03:14→17:49)
[2022-04-04] MEDS: LACTATED RINGERS 1,000 ML IV SCH (06:24)
--- NOTE | 2022-04-04 08:10 | P.CRDCN ---
History of Present Illness Consult date: 04/04/22 History of present illness: History of Present Illness: The patient is a 76-year-old male, followed by Dr. Quintanilla with a prior history of CAD, status post CABG history of hypertension, hyperlipidemia and significant PAD. He underwent stenting of his right lower extremity 2018, presented in December of this year with acute occlusion of the stent, received thrombolytics b ut had evidence of recurrent occlusion and was found to have abdominal aortic aneurysm. He underwent percutaneous abdominal aortic aneurysm repair yesterday and is scheduled to undergo right lower extremity bypass on Friday. He continues to have discomfort in the right lower extremity. He denies any chest discomfort or significant change in his breathing. He denies any dizziness or palpitation. He had ventricular ectopic activity but no evidence of ventricular ectocardia. He had a stress test in December that showed an ejection fraction of 54% with no evidence of inducible ischemia. His left ventricle systolic function was normal by echocardiography with mild mitral and tricuspid regu rgitation. The patient has a known history of hypertension, hyperlipidemia and a history of smoking. On his preoperative computed tomography scan he was found to have lower abdominal aneurysm, occlusion of the proximal right femoral artery and large aneurysm of the distal right femoral artery with thrombosis of the popliteal endograft and no flow in the proximal right tibia artery. The abdominal aneurysm measured 4 cm. Medications: Metoprolol succinate 25 mg daily, losartan 50 mg daily, Zetia 10 mg daily, Plavix 75 mg daily, Lipitor 80 mg daily, aspirin once a day., His Plavix is on hold and he received IV heparin Review of Systems: Respiratory: No history of asthma, bronchitis or recent cough. GI: No nausea or vomiting . No history of peptic ulcer disease. No recent GI bleed. : No hematuria or dysuria. Nervous System: No stroke or seizure. Physical Examination: 76-year-old male, alert, oriented in no acute distress,Blood pressure 101/60, Heart rate 60s Head: Normocephalic. Eyes: Sclerae nonicteric. Neck: Good carotid upstroke, no bruit, no jugular venous distention. Lungs: Clear to auscultation. Heart: Regular rate and rhythm, S1-S2, no S3, no rub. Systolic ejection murmur. Abdomen: Soft nontender, positive bowel sounds no organomegaly. Extremities: No edema, dressing on both groins, dry, no hematoma. Labs: Hemoglobin 14.6, BUN 20, creatinine 0.9. Impression: 1. Status post EVAR 2. Severe right lower extremity occlusive disease, scheduled for bypass on Friday 3. History of CAD, status post CABG no evidence of acute ischemia 4. Ventricular ectopic activity, stable 5. History of hypertension 6. History of hyperlipidemia 7. History of smoking Plan: 1. Continue beta hansa and losartan 2. No evidence of malignant arrhythmia at this time 3. Follow renal functions and potassium 4. Depending on his progress further recommendations will be made 5. Thank you for this consult we will follow with you Past Medical History Past Medical History: Coronary Artery Disease (CAD), Hyperlipidemia, Hypertension, Vascular Disorder Additional Past Medical History / Comment(s): hemorrhoids,cramping rt leg with activity History of Any Multi-Drug Resistant Organisms: None Reported Past Surgical History: Adenoidectomy, Coronary Bypass/CABG, Heart Catheterization, Hernia Repair, Tonsillectomy Additional Past Surgical History / Comment(s): Aortogram, ibrahima inguinal hernias, lung bx, stents in right leg, CBAG 2012 Past Anesthesia/Blood Transfusion Reactions: No Reported Reaction Past Psychological History: No Psychological Hx Reported Smoking Status: Former smoker Past Alcohol Use History: None Reported Additional Past Alcohol Use History / Comment(s): quit smoking Dec 2017 started smoking at age 26,1ppd Past Drug Use History: None Reported - Past Family History Mother Family Medical History: Cancer Medications and Allergies Home Medications Medication Instructions Recorded Confirmed Type Aspirin [Adult Low Dose Aspirin EC] 81 mg PO DAILY 03/19/18 04/01/22 History Losartan [Cozaar] 50 mg PO DAILY 03/19/18 04/01/22 History Multivit-Min/FA/Lycopen/Lutein 1 tab PO DAILY 04/27/18 04/01/22 History [Centrum Silver Men Tablet] Ezetimibe [Zetia] 10 mg PO HS 01/27/22 04/01/22 History Clopidogrel [Plavix] 75 mg PO DAILY tab 01/31/22 04/01/22 Rx Metoprolol Succinate (ER) [Toprol 25 mg PO HS 03/20/22 04/01/22 History Xl] Atorvastatin [Lipitor] 80 mg PO HS 03/21/22 04/01/22 History Naproxen Sodium [Aleve] 440 mg PO BID PRN 03/21/22 04/01/22 History Allergies Allergy/AdvReac Type Severity Reaction Status Date / Time meperidine [From Demerol] AdvReac Nausea Verified 04/01/22 21:27 Physical Exam Vitals: Vital Signs Temp Pulse Resp BP Pulse Ox 04/04/22 03:13 97.9 F 68 16 96/59 92 L 04/04/22 02:00 16 04/04/22 00:00 97.7 F 89 17 101/64 93 L 04/03/22 20:33 98.0 F 71 18 125/71 90 L 04/03/22 19:35 72 17 04/03/22 19:27 97.8 F 72 18 140/78 95 04/03/22 19:23 97.8 F 72 18 140/78 95 04/03/22 18:40 16 04/03/22 18:22 64 16 129/75 94 L 04/03/22 18:17 70 16 137/78 94 L 04/03/22 17:49 61 16 129/74 97 04/03/22 17:34 68 16 135/74 96 04/03/22 17:19 69 16 133/78 93 L 04/03/22 17:04 64 16 134/72 99 04/03/22 16:49 58 L 16 138/74 99 04/03/22 16:34 59 L 16 134/72 98 04/03/22 16:19 96.8 F L 71 14 141/75 95 Intake and Output 04/03/22 04/04/22 04/04/22 22:59 06:59 14:59 Intake Total 200 74.392 240 Output Total 0 820 Balance -1850 -745.608 240 Intake: IV 200 Intake, IV Titration 74.392 Amount Heparin Sod,Pork in 0.45% 74.392 NaCl 25,000 unit In 0.45 % NaCl 1 250ml.bag @ 10. 79 UNITS/KG/HR 9.299 mls/ hr IV .Q24H [facility] Rx#: [id number] Oral 240 Output: Urine 0 820 Other: Voiding Method Indwelling Catheter Results 04/03/22 07:34 04/03/22 07:34 Cardiac Enzymes 04/03/22 Range/Units 07:34 AST 26 (17-59) U/L Coagulation 11/03/22 Range/Units 01:44 APTT 42.4 H (22.0-30.0) sec CBC 04/03/22 Range/Units 07:34 WBC 11.1 H (3.8-10.6) k/uL RBC 4.23 L (4.30-5.90) m/uL Hgb 14.6 (13.0-17.5) gm/dL Hct 43.3 (39.0-53.0) % Plt Count 200 (150-450) k/uL Comprehensive Metabolic Panel 04/03/22 Range/Units 07:34 Sodium 136 L (137-145) mmol/L Potassium 4.4 (3.5-5.1) mmol/L Chloride 104 (98-107) mmol/L Carbon Dioxide 22 (22-30) mmol/L BUN 20 (9-20) mg/dL Creatinine 0.90 (0.66-1.25) mg/dL Glucose 114 H (74-99) mg/dL Calcium 8.8 (8.4-10.2) mg/dL AST 26 (17-59) U/L ALT 24 (4-49) U/L Alkaline Phosphatase 78 (38-126) U/L Total Protein 7.0 (6.3-8.2) g/dL Albumin 4.3 (3.5-5.0) g/dL Current Medications Generic Name Dose Route Start Last Admin Trade Name Freq PRN Reason Stop Dose Admin Hydrocodone Bitart/Acetaminophen 1 each 04/02/22 08:35 04/02/22 08:51 Hydrocodone/Apap 5-325mg 1 Each Tab PO 1 each Q6HR PRN Administration Moderate Pain Aspirin 81 mg 04/02/22 09:00 04/03/22 16:12 Aspirin 81 Mg PO Not Given DAILY [facility] Atorvastatin Calcium 80 mg 04/02/22 21:00 04/03/22 19:23 Atorvastatin 80 Mg Tab PO 80 mg HS [facility] Administration Ezetimibe 10 mg 04/02/22 21:00 04/03/22 19:23 Ezetimibe 10 Mg Tab PO 10 mg HS [facility] Administration Hydromorphone HCl 1 mg 04/02/22 08:35 04/04/22 03:14 Hydromorphone 1 Mg/Ml 1 Ml Syringe IVP 1 mg Q4HR PRN Administration Severe Pain Lactated Ringer's 1,000 mls @ 20 mls/hr 04/03/22 06:24 04/04/22 06:24 Lactated Ringers IV Not Given .Q24H [facility] Heparin Sodium/Sodium Chloride 250 mls @ 9.299 mls/hr 04/03/22 19:00 04/04/22 02:37 25,000 unit/ Sodium Chloride IV 12.79 units/kg/hr .Q24H [facility] 11.023 mls/hr Titration Protocol 10.79 UNITS/KG/HR Losartan Potassium 50 mg 04/02/22 09:00 04/03/22 08:15 Losartan 50 Mg Tab PO 50 mg DAILY [facility] Administration Metoprolol Succinate 25 mg 04/02/22 21:00 04/03/22 19:23 Metoprolol Succinate (Er) 25 Mg Tab.Er.24h PO 25 mg HS [facility] Administration Multivitamins 1 each 04/02/22 09:00 04/03/22 07:58 Multivitamins, Thera 1 Each Tab PO Not Given DAILY [facility] Intake and Output 04/03/22 04/04/22 04/04/22 22:59 06:59 14:59 Intake Total 200 74.392 240 Output Total 2049 820 Balance -1850 -745.608 240 Intake: IV 200 Intake, IV Titration 74.392 Amount Heparin Sod,Pork in 0.45% 74.392 NaCl 25,000 unit In 0.45 % NaCl 1 250ml.bag @ 10. 79 UNITS/KG/HR 9.299 mls/ hr IV .Q24H [facility] Rx#: [id number] Oral 240 Output: Urine 2049 820 Other: Voiding Method Indwelling Catheter 04/03/22 07:34 04/03/22 07:34
[2022-04-04] MEDS: ASPIRIN 81 MG PO SCH (08:39)
[2022-04-04] MEDS: MULTIVITAMINS, THERA 1 EACH TAB PO SCH (08:39)
[2022-04-04] MEDS: LOSARTAN 50 MG TAB PO SCH (08:39)
--- NOTE | 2022-04-04 08:40 | IR ---
EXAMINATION TYPE: IR stent intravas non coronary DATE OF EXAM: 04/03/2022 COMPARISON: NONE HISTORY: Fluoroscopy time. Fluoroscopy was provided to the referring clinician.
[2022-04-04 10:25] LABS: Basophils % (A) 0 %; Eosinophils % (A) 0 %; HCT 39.7 % (39.0-53.0); HGB 13.4 gm/dL (13.0-17.5); Lymphocytes # (A) 1.3 k/uL (1.0-4.8); Lymphocytes % (A) 7 %; MCH 34.4 pg (25.0-35.0); MCHC 33.8 g/dL (31.0-37.0); Mean Platelet Volume 8.9; Monocytes % (A) 6 %; Neutrophils # (A) 15.3 k/uL (1.3-7.7); Neutrophils % (A) 86 %; Platelet Count 200 k/uL (150-450); RBC 3.89 m/uL (4.30-5.90); RDW 11.9 % (11.5-15.5); WBC 17.9 k/uL (3.8-10.6)
[2022-04-04 10:39] LABS: ALT 24 U/L (4-49); AST 26 U/L (17-59); African American GFR (CKD) >90 (>60 ml/min/1.73 sqM); Alkaline Phosphatase 77 U/L (38-126); Anion Gap 11 mmol/L; Blood Urea Nitrogen 23 mg/dL (9-20); Carbon Dioxide 24 mmol/L (22-30); Chloride 100 mmol/L (98-107); Glucose 112 mg/dL (74-99); Magnesium 1.9 mg/dL (1.6-2.3); Non-African American GFR(CKD) 86 (>60 ml/min/1.73 sqM); Potassium 4.4 mmol/L (3.5-5.1); Sodium 135 mmol/L (137-145); Total Bilirubin 0.7 mg/dL (0.2-1.3); Total Protein 6.6 g/dL (6.3-8.2)
--- NOTE | 2022-04-04 10:46 | P.PN ---
Subjective Progress Note Date: 04/04/22 Patient is seen and examined today as a follow-up. He is postop day #1 for EVAR. He denies any abdominal pain, chest pain, shortness of breath. Denies any pain in his groin or bleeding. He is still reporting significant pain in his right toes. States when he is up and walking he's still having some c ramping in his calf. He is able to move bilateral lower extremities. Cardiology was consulted for bigeminy during surgery yesterday, they are reporting no evidence of malignant arrhythmia at this time. With further recommendations to be made. Objective - Vital Signs Vital signs: Vital Signs Temp 97.9 F 04/04/22 03:13 Pulse 68 04/04/22 03:13 Resp 16 04/04/22 03:13 BP 96/59 04/04/22 03:13 Pulse Ox 92 L 04/04/22 03:13 FiO2 Intake & Output 04/03/22 04/04/22 04/04/22 18:59 06:59 18:59 Intake Total 1200 74.392 240 Output Total 2600 1170 Balance -1400 -1095.608 240 Intake: IV 1200 Intake, IV Titration 74.392 Amount Heparin Sod,Pork in 0.45% 74.392 NaCl 25,000 unit In 0.45 % NaCl 1 250ml.bag @ 10. 79 UNITS/KG/HR 9.299 mls/ hr IV .Q24H [facility] Rx#: [id number] Oral 240 Output: Urine 2600 1170 Other: Voiding Method Toilet Indwelling Catheter # Voids 1 - Exam General appearance: The patient is alert, oriented, appears in no acute distress. HET: Head is normocephalic and atraumatic. Pupils are equal and reactive. Neck: Supple without lymphadenopathy. Trachea midline. No audible carotid bruit. Heart: S1 S2. Regular rate and rhythm. Lungs: Clear to auscultation bilaterally. Abdomen: Soft, nontender, nondistended. Extremities: Normal skin color and turgor. Bilateral groin access sites without any hematoma, bleeding. Right lower extremity with nonpalpable DP or PT pulses. Monophasic PT signal Good capillary refill, warm to touch, sensorimotor intact. Left lower extremity with palpable DP and PT pulses. Neurological: No focal deficits. Strength and sensation are grossly intact. - Labs CBC & Chem 7: 11/03/22 09:58 04/04/22 09:58 Labs: Abnormal Lab Results - Last 24 Hours (Table) 04/04/22 04/04/22 04/04/22 Range/Units 01:44 09:58 09:58 WBC 17.9 H (3.8-10.6) k/uL RBC 3.89 L (4.30-5.90) m/uL MCV 102.0 H (80.0-100.0) fL Neutrophils # 15.3 H (1.3-7.7) k/uL APTT 42.4 H (22.0-30.0) sec Sodium 135 L (137-145) mmol/L BUN 23 H (9-20) mg/dL Glucose 112 H (74-99) mg/dL 04/04/22 Range/Units 09:58 WBC (3.8-10.6) k/uL RBC (4.30-5.90) m/uL MCV (80.0-100.0) fL Neutrophils # (1.3-7.7) k/uL APTT 44.2 H (22.0-30.0) sec Sodium (137-145) mmol/L BUN (9-20) mg/dL Glucose (74-99) mg/dL Assessment and Plan Assessment: 1. Abdominal aortic aneurysm status post EVAR 2. Right femoral artery occlusion 3. Right lower extremity pain 4. Thrombosis of right popliteal endograft 5. History of peripheral vascular disease 6. Coronary artery disease status post CABG, stenting 7. Former smoker Plan: 1. Continue heparin 2. Continue with recommendations from cardiology 3. Encourage ambulation 4. Patient tentatively scheduled for right lower extremity femoral/tibial bypass surgery on Friday Thank you for this consultation, we will continue to follow. The impression and plan of care has been dictated as directed. Dr. Hicks I performed a history and examination of this patient, discussed the same with the dictator. I agree with the dictator's note ,documented as a scribe. Any additional findings or plans will be noted.
[2022-04-04] MEDS: HEPARIN SOD,PORK IN 0.45% NACL 25,000 UNIT in 0.45% NACL 1 250ML.BAG IV SCH (15:06)
--- NOTE | 2022-04-04 16:52 | P.PN ---
Subjective Progress Note Date: 04/04/22 Randell Machado, is a 76 year-old male who presented to [facility] ER with a chief complaint of bilateral calf pain especially after walking. 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 Patient was admitted to medical floor he was started on IV heparin vascular surgery consultation was requested On 04/03/2022 patient is alert and oriented 3. Patient was evaluated by vascular surgery and plans for EVAR and right iliac artery stenting. With possible right lower extremity bypass Friday. Heparin has been turned off since 2 AM this morning for surgical intervention. At this time patient denies chest pain or shortness breath. Patient denies nausea vomiting or diarrhea. Patient denies any urinary burning or frequency. Current vital signs temp 98.7, heart rate 64, respiratory rate 16 blood pressure 147/90 to 95% on room air On 04/04/2022 patient is alert and oriented 3. Patient underwent Percutaneous Endovascular aortic repair with [place] device yesterday. plans for right lower extremity femoral/tibial bypass surgery on Friday. IV Heparin was resumed. At this time patient denies chest pain or shortness breath. Patient denies nausea vomiting or diarrhea. Patient denies any urinary burning or frequency. Current vital signs temp 98.7, heart rate 64, respiratory rate 16 blood pressure 109/76 to 93% on room air Objective - Vital Signs Vital signs: Vital Signs Temp 98.2 F 04/04/22 12:00 Pulse 74 04/04/22 14:00 Resp 18 04/04/22 14:00 BP 116/71 04/04/22 12:00 Pulse Ox 93 L 04/04/22 12:00 FiO2 Intake & Output 04/03/22 04/04/22 04/04/22 18:59 06:59 18:59 Intake Total 1200 74.392 988.389 Output Total 2600 1170 Balance -1400 -1095.608 988.389 Intake: IV 1200 Intake, IV Titration 74.392 90.389 Amount Heparin Sod,Pork in 0.45% 74.392 90.389 NaCl 25,000 unit In 0.45 % NaCl 1 250ml.bag @ 10. 79 UNITS/KG/HR 9.299 mls/ hr IV .Q24H [facility] Rx#: [id number] Oral 898 Output: Urine 2600 1170 Other: Voiding Method Toilet Indwelling Catheter Toilet # Voids 1 - Exam In general patient is alert and oriented x 3 in no distress HEENT head normocephalic and atraumatic Neck is supple no JVD no goiter no lymphadenopathy no carotid bruit Chest examination is clear to auscultation no crackles no wheezing Cardiac exam reveals regular heart sounds S1 and S2 no gallops no murmurs Abdomen is soft nontender no organomegaly with normal bowel sounds Extremity exam reveals no edema no cyanosis or clubbing Neurological examination reveals no gross focal deficits - Labs CBC & Chem 7: 04/04/22 09:58 04/04/22 09:58 Labs: Abnormal Lab Results - Last 24 Hours (Table) 04/04/22 04/04/22 04/04/22 Range/Units 01:44 09:58 09:58 WBC 17.9 H (3.8-10.6) k/uL RBC 3.89 L (4.30-5.90) m/uL MCV 102.0 H (80.0-100.0) fL Neutrophils # 15.3 H (1.3-7.7) k/uL APTT 42.4 H (22.0-30.0) sec Sodium 135 L (137-145) mmol/L BUN 23 H (9-20) mg/dL Glucose 112 H (74-99) mg/dL 04/04/22 Range/Units 09:58 WBC (3.8-10.6) k/uL RBC (4.30-5.90) m/uL MCV (80.0-100.0) fL Neutrophils # (1.3-7.7) k/uL APTT 44.2 H (22.0-30.0) sec Sodium (137-145) mmol/L BUN (9-20) mg/dL Glucose (74-99) mg/dL Assessment and Plan Plan: Right lower extremity pain with evidence of right femoral artery occlusion and thrombosis of the right popliteal endograft Abdominal aortic aneurysm Known history of severe peripheral vascular disease Known history of coronary artery disease status post coronary artery bypass graft surgery and history of angioplasty and stent placement Patient has prolonged history of smoking he stated that he quit smoking Underlying history of hypertension Underlying history of hyperlipidemia maintained on Lipitor and Zetia At this time patient is admitted to medical floor Heparin DC'd per vascular surgery Plans for EVAR and right iliac artery stenting on 04/03/2022 Tentative plans for right lower extremity bypass on Friday Repeat labs ordered Will follow closely
[2022-04-04] MEDS: HYDROcodone/APAP 5-325MG 1 EACH TAB PO PRN (20:37)
[2022-04-04] MEDS: EZETIMIBE 10 MG TAB PO SCH (20:38)
[2022-04-04] MEDS: ATORVASTATIN 80 MG TAB PO SCH (20:38)
[2022-04-04] MEDS: METOPROLOL SUCCINATE (ER) 25 MG TAB.ER.24H PO SCH (20:38)
[2022-04-05] MEDS: HYDROmorphone 1 MG/ML 1 ML SYRINGE IVP PRN ×4 (02:06→19:53)
[2022-04-05 06:41] LABS: Basophils # (A) 0.1 k/uL (0-0.2); Basophils % (A) 0 %; Eosinophils # (A) 0.7 k/uL (0-0.7); Eosinophils % (A) 5 %; HCT 41.1 % (39.0-53.0); HGB 13.7 gm/dL (13.0-17.5); Lymphocytes # (A) 2.7 k/uL (1.0-4.8); Lymphocytes % (A) 19 %; MCH 34.3 pg (25.0-35.0); MCHC 33.4 g/dL (31.0-37.0); MCV 102.6 fL (80.0-100.0); Mean Platelet Volume 9.5; Monocytes # (A) 0.9 k/uL (0-1.0); Monocytes % (A) 6 %; Neutrophils # (A) 9.9 k/uL (1.3-7.7); Neutrophils % (A) 68 %; Platelet Count 176 k/uL (150-450); RDW 11.9 % (11.5-15.5); WBC 14.5 k/uL (3.8-10.6)
[2022-04-05] MEDS: HYDROcodone/APAP 5-325MG 1 EACH TAB PO PRN (06:58)
[2022-04-05 07:04] LABS: ALT 34 U/L (4-49); AST 56 U/L (17-59); African American GFR (CKD) >90 (>60 ml/min/1.73 sqM); Alkaline Phosphatase 72 U/L (38-126); Anion Gap 9 mmol/L; Blood Urea Nitrogen 22 mg/dL (9-20); Calcium 8.9 mg/dL (8.4-10.2); Carbon Dioxide 26 mmol/L (22-30); Chloride 101 mmol/L (98-107); Glucose 110 mg/dL (74-99); Non-African American GFR(CKD) 86 (>60 ml/min/1.73 sqM); Potassium 4.3 mmol/L (3.5-5.1); Sodium 136 mmol/L (137-145); Total Bilirubin 0.8 mg/dL (0.2-1.3); Total Protein 6.6 g/dL (6.3-8.2)
[2022-04-05] MEDS: LACTATED RINGERS 1,000 ML IV SCH (07:36)
[2022-04-05] MEDS: ASPIRIN 81 MG PO SCH (07:51)
[2022-04-05] MEDS: MULTIVITAMINS, THERA 1 EACH TAB PO SCH (07:51)
[2022-04-05] MEDS: LOSARTAN 50 MG TAB PO SCH (07:51)
--- NOTE | 2022-04-05 08:48 | P.PN ---
Subjective Progress Note Date: 04/05/22 Patient is seen and examined today as a follow-up. He is status post EVAR. He denies any abdominal pain, chest pain, shortness of breath. Denies any pain in his groin or bleeding. Patient reports that he ambulated quite a bit yesterday in the hallways. After 20-30 minutes he did feel cramping in his calf and the right lower extremity as well as significant amount of pain in his toes. States he has pain in his toes on the right foot this morning. Vital signs have been stable he's been afebrile. Objective - Vital Signs Vital signs: Vital Signs Temp 98.2 F 04/05/22 03:51 Pulse 67 04/05/22 03:51 Resp 17 04/05/22 03:51 BP 146/86 04/05/22 03:51 Pulse Ox 95 04/05/22 03:51 FiO2 Intake & Output 04/04/22 04/05/22 04/05/22 18:59 06:59 18:59 Intake Total 1795.604 175.817 Output Total 200 Balance 1795.604 -200 175.817 Intake: Intake, IV Titration 357.604 175.817 Amount Heparin Sod,Pork in 0.45% 137.604 175.817 NaCl 25,000 unit In 0.45 % NaCl 1 250ml.bag @ 10. 79 UNITS/KG/HR 9.299 mls/ hr IV .Q24H [facility] Rx#: [id number] Lactated Ringers 1,000 ml 220 @ 20 mls/hr IV .Q24H [facility] Rx#:[id number] Oral 1438 Output: Urine 200 Other: Voiding Method Toilet Toilet # Voids 3 - Exam General appearance: The patient is alert, oriented, appears in no acute distress. HET: Head is normocephalic and atraumatic. Pupils are equal and reactive. Neck: Supple without lymphadenopathy. Trachea midline. No audible carotid bruit. Heart: S1 S2. Regular rate and rhythm. Lungs: Clear to auscultation bilaterally. Abdomen: Soft, nontender, nondistended. Extremities: Normal skin color and turgor. Bilateral groin access sites without any hematoma, bleeding. Bilateral lower extremities warm to touch with good sensorimotor and good capillary refill. Left greater than right as far as able to wiggle toes. Right lower extremity with nonpalpable DP or PT pulses. Monophasic PT signal. Left lower extremity with palpable DP and PT pulses. Neurological: No focal deficits. Strength and sensation are grossly intact. - Labs CBC & Chem 7: 04/05/22 06:31 04/05/22 06:31 Labs: Abnormal Lab Results - Last 24 Hours (Table) 04/04/22 04/04/22 04/04/22 Range/Units 09:58 09:58 09:58 WBC 17.9 H (3.8-10.6) k/uL RBC 3.89 L (4.30-5.90) m/uL MCV 102.0 H (80.0-100.0) fL Neutrophils # 15.3 H (1.3-7.7) k/uL APTT 44.2 H (22.0-30.0) sec Sodium 135 L (137-145) mmol/L BUN 23 H (9-20) mg/dL Glucose 112 H (74-99) mg/dL 04/05/22 04/05/22 04/05/22 Range/Units 06:31 06:31 06:31 WBC 14.5 H (3.8-10.6) k/uL RBC 4.00 L (4.30-5.90) m/uL MCV 102.6 H (80.0-100.0) fL Neutrophils # 9.9 H (1.3-7.7) k/uL APTT 41.5 H (22.0-30.0) sec Sodium 136 L (137-145) mmol/L BUN 22 H (9-20) mg/dL Glucose 110 H (74-99) mg/dL Assessment and Plan Assessment: 1. Abdominal aortic aneurysm status post EVAR 2. Right femoral artery occlusion 3. Right lower extremity pain 4. Thrombosis of right popliteal endograft 5. History of peripheral vascular disease 6. Coronary artery disease status post CABG, stenting 7. Former smoker Plan: 1. Continue heparin 2. Continue with recommendations from cardiology 3. Encourage ambulation 4. Patient tentatively scheduled for right lower extremity femoral/tibial bypass surgery tomorrow morning Thank you for this consultation, we will continue to follow. The impression and plan of care has been dictated as directed. Dr. Kurt Watt performed a history and examination of this patient, discussed the same with the dictator. I agree with the dictator's note ,documented as a scribe. Any additional findings or plans will be noted.
--- NOTE | 2022-04-05 09:42 | P.PN ---
Subjective Progress Note Date: 04/05/22 Randell Machado, is a 76 year-old male who presented to [facility] ER with a chief complaint of bilateral calf pain especially after walking. 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 Patient was admitted to medical floor he was started on IV heparin vascular surgery consultation was requested On 04/03/2022 patient is alert and oriented 3. Patient was evaluated by vascular surgery and plans for EVAR and right iliac artery stenting. With possible right lower extremity bypass Friday. Heparin has been turned off since 2 AM this morning for surgical intervention. At this time patient denies chest pain or shortness breath. Patient denies nausea vomiting or diarrhea. Patient denies any urinary burning or frequency. Current vital signs temp 98.7, heart rate 64, respiratory rate 16 blood pressure 147/90 to 95% on room air On 04/04/2022 patient is alert and oriented 3. Patient underwent Percutaneous Endovascular aortic repair with [place] device yesterday. plans for right lower extremity femoral/tibial bypass surgery on Friday. IV Heparin was resumed. At this time patient denies chest pain or shortness breath. Patient denies nausea vomiting or diarrhea. Patient denies any urinary burning or frequency. Current vital signs temp 98.7, heart rate 64, respiratory rate 16 blood pressure 109/76 to 93% on room air On 04/05/2022 patient is alert and oriented 3. Patient is currently sitting comfortably in bed plans for fem-tib bypass surgery on Friday. Patient remains on heparin drip. Current vital signs temp 98.1, heart rate 76, respiratory rate 18, blood pressure 131/70 with a pulse ox of 96% on room air Objective - Vital Signs Vital signs: Vital Signs Temp 98.1 F 04/05/22 07:50 Pulse 76 04/05/22 07:50 Resp 18 04/05/22 07:50 BP 131/70 04/05/22 07:50 Pulse Ox 96 04/05/22 07:50 FiO2 Intake & Output 04/04/22 04/05/22 04/05/22 18:59 06:59 18:59 Intake Total 1795.604 415.817 Output Total 200 Balance 1795.604 -200 415.817 Intake: Intake, IV Titration 357.604 175.817 Amount Heparin Sod,Pork in 0.45% 137.604 175.817 NaCl 25,000 unit In 0.45 % NaCl 1 250ml.bag @ 10. 79 UNITS/KG/HR 9.299 mls/ hr IV .Q24H [facility] Rx#: [id number] Lactated Ringers 1,000 ml 220 @ 20 mls/hr IV .Q24H [facility] Rx#:[id number] Oral 1438 240 Output: Urine 200 Other: Voiding Method Toilet Toilet # Voids 3 - Exam In general patient is alert and oriented x 3 in no distress HEENT head normocephalic and atraumatic Neck is supple no JVD no goiter no lymphadenopathy no carotid bruit Chest examination is clear to auscultation no crackles no wheezing Cardiac exam reveals regular heart sounds S1 and S2 no gallops no murmurs Abdomen is soft nontender no organomegaly with normal bowel sounds Extremity exam reveals no edema no cyanosis or clubbing Neurological examination reveals no gross focal deficits - Labs CBC & Chem 7: 04/05/22 06:31 04/05/22 06:31 Labs: Abnormal Lab Results - Last 24 Hours (Table) 04/04/22 04/04/22 04/04/22 Range/Units 09:58 09:58 09:58 WBC 17.9 H (3.8-10.6) k/uL RBC 3.89 L (4.30-5.90) m/uL MCV 102.0 H (80.0-100.0) fL Neutrophils # 15.3 H (1.3-7.7) k/uL APTT 44.2 H (22.0-30.0) sec Sodium 135 L (137-145) mmol/L BUN 23 H (9-20) mg/dL Glucose 112 H (74-99) mg/dL 04/05/22 04/05/2222 Range/Units 06:31 06:31 06:31 WBC 14.5 H (3.8-10.6) k/uL RBC 4.00 L (4.30-5.90) m/uL MCV 102.6 H (80.0-100.0) fL Neutrophils # 9.9 H (1.3-7.7) k/uL APTT 41.5 H (22.0-30.0) sec Sodium 136 L (137-145) mmol/L BUN 22 H (9-20) mg/dL Glucose 110 H (74-99) mg/dL Assessment and Plan Plan: Right lower extremity pain with evidence of right femoral artery occlusion and thrombosis of the right popliteal endograft Abdominal aortic aneurysm Known history of severe peripheral vascular disease Known history of coronary artery disease status post coronary artery bypass graft surgery and history of angioplasty and stent placement Patient has prolonged history of smoking he stated that he quit smoking Underlying history of hypertension Underlying history of hyperlipidemia maintained on Lipitor and Zetia At this time patient is admitted to medical floor Heparin drip restarted after procedure Status post EVAR and right iliac artery stenting on 04/03/2022 Tentative plans for right lower extremity bypass on Friday Repeat labs ordered Will follow closely
--- NOTE | 2022-04-05 10:30 | P.PN ---
Subjective Progress Note Date: 04/05/22 HISTORY OF PRESENT ILLNESS: The patient is a 76-year-old male, followed by Dr. Quintanilla with a prior history of CAD, status post CABG history of hypertension, hyperlipidemia and significant PAD. He underwent stenting of his right lower extremity 2017, presented in December of this year with acute occlusion of the stent, received thrombolytics but had evidence of recurrent occlusion and was found to have abdominal aortic aneurysm. He underwent percutaneous abdominal aortic aneurysm repair yesterday and is scheduled to undergo right lower extremity bypass on Friday. He continues to have discomfort in the right lower extremity. He denies any chest discomfort or significant change in his breathing. He denies any dizziness or palpitation. He had ventricular ectopic activity but no evidence of ventricular ectocardia. He had a stress test in December that showed an ejection fraction of 54% with no evidence of inducible ischemia. His left ventricle systolic function was normal by echocardiography with mild mitral and tricuspid regurgitation. The patient has a known history of hypertension, hyperlipidemia and a history of smoking. On his preoperative computed tomography scan he was found to have lower abdominal aneurysm, occlusion of the proximal right femoral artery and large aneurysm of the distal right femoral artery with thrombosis of the popliteal endograft and no flow in the proximal right tibia artery. The abdominal aneurysm measured 4 cm. Medications: Metoprolol succinate 25 mg daily, losartan 50 mg daily, Zetia 10 mg daily, Plavix 75 mg daily, Lipitor 80 mg daily, aspirin once a day., His Plavix is on hold and he received IV heparin 04/05/2022 Patient examined this morning at the bedside. Patient denies chest pain or pressure. He denies shortness of breath. He reports discomfort in his right lower extremity and right foot. Telemetry reveals sinus mechanism with a heart rate in the 60s. No significant arrhythmias noted. Vital signs are stable. PHYSICAL EXAM: VITAL SIGNS: Reviewed. GENERAL: Well-developed in no acute distress. NECK: Supple. No JVD or thyromegaly LUNGS: Respirations even and unlabored. Lungs essentially clear to auscultation bilaterally. HEART: Regular rate and rhythm. S1 and S2 heard. Systolic murmur noted EXTREMITIES: Normal range of motion. No clubbing or cyanosis. No lower extremity edema. Right lower extremity cool to touch. ASSESSMENT: 1. Status post EVAR 2. Severe right lower extremity occlusive disease, scheduled for bypass on Friday 3. History of CAD, status post CABG no evidence of acute ischemia 4. Ventricular ectopic activity, stable 5. History of hypertension 6. History of hyperlipidemia 7. History of smoking PLAN: Continue current cardiac medications Patient scheduled for right lower extremity femoral/tibial bypass surgery tomorrow with vascular surgery Further recommendations pending patient's course Nurse practitioner note has been reviewed by physician. Signing provider agrees with the documented findings, assessment, and plan of care. Objective - Vital Signs Vital signs: Vital Signs Temp 98.1 F 04/05/22 07:50 Pulse 76 04/05/22 07:50 Resp 18 04/05/22 07:50 BP 131/70 04/05/22 07:50 Pulse Ox 96 04/05/22 07:50 FiO2 Intake & Output 04/04/22 04/05/22 04/05/22 18:59 06:59 18:59 Intake Total 1795.604 415.817 Output Total 200 Balance 1795.604 -200 415.817 Intake: Intake, IV Titration 357.604 175.817 Amount Heparin Sod,Pork in 0.45% 137.604 175.817 NaCl 25,000 unit In 0.45 % NaCl 1 250ml.bag @ 10. 79 UNITS/KG/HR 9.299 mls/ hr IV .Q24H [facility] Rx#: [id number] Lactated Ringers 1,000 ml 220 @ 20 mls/hr IV .Q24H [facility] Rx#:[id number] Oral 1438 240 Output: Urine 200 Other: Voiding Method Toilet Toilet # Voids 3 - Labs CBC & Chem 7: 04/05/22 06:31 04/05/22 06:31 Labs: Abnormal Lab Results - Last 24 Hours (Table) 04/04/22 04/04/22 04/05/22 Range/Units 09:58 09:58 06:31 WBC (3.8-10.6) k/uL RBC (4.30-5.90) m/uL MCV (80.0-100.0) fL Neutrophils # (1.3-7.7) k/uL APTT 44.2 H (22.0-30.0) sec Sodium 135 L 136 L (137-145) mmol/L BUN 23 H 22 H (9-20) mg/dL Glucose 112 H 110 H (74-99) mg/dL 04/05/22 04/05/22 Range/Units 06:31 06:31 WBC 14.5 H (3.8-10.6) k/uL RBC 4.00 L (4.30-5.90) m/uL MCV 102.6 H (80.0-100.0) fL Neutrophils # 9.9 H (1.3-7.7) k/uL APTT 41.5 H (22.0-30.0) sec Sodium (137-145) mmol/L BUN (9-20) mg/dL Glucose (74-99) mg/dL
[2022-04-05] MEDS: HEPARIN SOD,PORK IN 0.45% NACL 25,000 UNIT in 0.45% NACL 1 250ML.BAG IV SCH (13:41)
[2022-04-05] MEDS: METOPROLOL SUCCINATE (ER) 25 MG TAB.ER.24H PO SCH (20:55)
[2022-04-05] MEDS: ATORVASTATIN 80 MG TAB PO SCH (20:55)
[2022-04-05] MEDS: EZETIMIBE 10 MG TAB PO SCH (20:55)
[2022-04-05 23:11] VITALS: RESP 18
--- NOTE | 2022-04-06 09:47 | P.PN ---
Subjective Progress Note Date: 04/06/22 PROGRESS NOTE The patient is a 76-year-old male with a known history of severe PAD, underwent abdominal aortic aneurysm repair and has been evaluated to undergo revascularization of his right lower extremity. The plan according to Dr. Hicks's note is for the patient to be discharged home and be readmitted to undergo patch angioplasty of the right lower extremity. He continues to have intermittent claudications depending on his moving. He denies any chest discomfort, dizziness or palpitations. He denies any PND or orthopnea. Medications: Aspirin, Lipitor 80 mg daily, Zetia, IV heparin, losartan 50 mg daily, metoprolol succinate 25 mg daily PHYSICAL EXAMINATION: Blood pressure 118/60 heart rate 60 LUNGS: Clear to auscultation HEART: Regular rate and rhythm, S1, S2. No S3. systolic ejection murmur ABDOMEN: Soft, nontender, no organomegaly EXTREMETIES: No edema LAB: Pending IMPRESSION: 1. Status post abdominal aortic aneurysm repair 2. Obstructive disease with occluded stent in the right lower extremity 3. Status post CABG 4. Hypertension 5. History of hyperlipidemia PLAN: 1. Continue present cardiac medications 2. Anticoagulation plan per vascular surgery 3. Stable from the cardiac standpoint 4. Follow-up as an outpatient Objective - Vital Signs Vital signs: Vital Signs Temp 98.1 F 04/05/22 23:11 Pulse 66 04/05/22 23:11 Resp 18 04/05/22 23:11 BP 118/62 04/05/22 23:11 Pulse Ox 94 L 04/05/22 23:11 FiO2 Intake & Output 04/05/22 04/06/22 04/06/22 18:59 06:59 18:59 Intake Total 490.000 120 Balance 490.000 120 Intake: Intake, IV Titration 250.000 Amount Heparin Sod,Pork in 0.45% 250.000 NaCl 25,000 unit In 0.45 % NaCl 1 250ml.bag @ 10. 79 UNITS/KG/HR 9.299 mls/ hr IV .Q24H [facility] Rx#: [id number] Oral 240 120 Other: Voiding Method Toilet # Voids 1 - Labs CBC & Chem 7: 04/05/22 06:31 04/05/22 06:31 Labs: Abnormal Lab Results - Last 24 Hours (Table) 04/05/22 04/05/22 Range/Units 12:10 19:28 APTT 43.0 H 51.1 H (22.0-30.0) sec
[2022-04-06] MEDS: LACTATED RINGERS 1,000 ML IV SCH (09:56)
[2022-04-06] MEDS: LOSARTAN 50 MG TAB PO SCH (09:57)
[2022-04-06] MEDS: ASPIRIN 81 MG PO SCH (09:57)
[2022-04-06] MEDS: MULTIVITAMINS, THERA 1 EACH TAB PO SCH (09:57)
[2022-04-06] MEDS: HYDROcodone/APAP 5-325MG 1 EACH TAB PO PRN (11:30)
[2022-04-06 12:05] VITALS: BP 136/82; PULSE 68; TEMP 98
--- NOTE | 2022-04-06 12:05 | P.DS ---
Providers Date of admission: 04/01/22 21:26 Expected date of discharge: 04/06/22 Attending physician: Kd Garcia Consults: 04/01/22 21:26 Consult Physician Urgent Consulting Provider: Lizz Hicks Consult Reason/Comments: Arterial occlusion Do you want consulting provider notified?: Yes 04/03/22 16:38 Consult Physician Routine Consulting Provider: Bozena Sim Consult Reason/Comments: bigeminy during case, cad, Do you want consulting provider notified?: Yes Primary care physician: Hayley White [facility] Course: Diagnosis on discharge: Right lower extremity pain with evidence of right femoral artery occlusion and thrombosis of the right popliteal endograft Abdominal aortic aneurysm Known history of severe peripheral vascular disease Known history of coronary artery disease status post coronary artery bypass graft surgery and history of angioplasty and stent placement Patient has prolonged history of smoking he stated that he quit smoking Underlying history of hypertension Underlying history of hyperlipidemia maintained on Lipitor and Zetia Hospital course: Randell Machado, is a 76 year-old male who presented to [facility] ER with a chief complaint of bilateral calf pain especially after walking. 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 Patient was admitted to medical floor he was started on IV heparin vascular surgery consultation was requested On 04/03/2022 patient is alert and oriented 3. Patient was evaluated by vascular surgery and plans for EVAR and right iliac artery stenting. With possible right lower extremity bypass Friday. Heparin has been turned off since 2 AM this morning for surgical intervention. At this time patient denies chest pain or shortness breath. Patient denies nausea vomiting or diarrhea. Patient denies any urinary burning or frequency. Current vital signs temp 98.7, heart rate 64, respiratory rate 16 blood pressure 147/90 to 95% on room air On 04/04/2022 patient is alert and oriented 3. Patient underwent Percutaneous Endovascular aortic repair with [place] device yesterday. plans for right lower extremity femoral/tibial bypass surgery on Friday. IV Heparin was resumed. At this time patient denies chest pain or shortness breath. Patient denies nausea vomiting or diarrhea. Patient denies any urinary burning or frequency. Current vital signs temp 98.7, heart rate 64, respiratory rate 16 blood pressure 109/76 to 93% on room air On 04/05/2022 patient is alert and oriented 3. Patient is currently sitting comfortably in bed plans for fem-tib bypass surgery on Friday. Patient remains on heparin drip. Current vital signs temp 98.1, heart rate 76, respiratory rate 18, blood pressure 131/70 with a pulse ox of 96% on room air. On 04/06/2022 patient was seen and examined on the telemetry floor he is alert and oriented 3. Patient underwent Percutaneous Endovascular aortic repair with [place] device yesterday. plans for right lower extremity femoral/tibial bypass surgery on Friday. IV Heparin was resumed. At this time patient denies chest pain or shortness breath. Patient denies nausea vomiting or diarrhea. Patient denies any urinary burning or frequency. Current vital signs temp 98.7, heart rate 64, respiratory rate 16 blood pressure 109/76 to 93% on room air. I received a phone call from Dr Hicks who advised that patient is doing well now and does not need emergency surgery on Friday. She advised that patient can be discharged home, and to add Eliquis 5 mg by mouth twice daily to his medic ation regimen She will follow him as outpatient and he will be readmitted for surgery. Patient aware of this plan and is agreeable prescription and coupon for adequacy were given to him and he will be discharged to home today follow-up with Dr. White within one week follow-up with Dr. Hicks within one week. Plan - Discharge Summary New Discharge Prescriptions: New HYDROcodone/APAP 5-325MG [[place] 5-325] 1 tab PO Q4HR PRN 3 Days #18 tab PRN Reason: Pain Apixaban [Eliquis] 5 mg PO BID 30 Days #60 tab Continue Losartan [Cozaar] 50 mg PO DAILY Aspirin [Adult Low Dose Aspirin EC] 81 mg PO DAILY Multivit-Min/FA/Lycopen/Lutein [Centrum Silver Men Tablet] 1 tab PO DAILY Atorvastatin [Lipitor] 80 mg PO HS Ezetimibe [Zetia] 10 mg PO HS Clopidogrel [Plavix] 75 mg PO DAILY tab Metoprolol Succinate (ER) [Toprol XL] 25 mg PO HS Discontinued Naproxen Sodium [Aleve] 440 mg PO BID PRN PRN Reason: Pain Discharge Medication List Aspirin [Adult Low Dose Aspirin EC] 81 mg PO DAILY 03/19/18 [History] Losartan [Cozaar] 50 mg PO DAILY 03/19/18 [History] Multivit-Min/FA/Lycopen/Lutein [Centrum Silver Men Tablet] 1 tab PO DAILY 04/27/18 [History] Ezetimibe [Zetia] 10 mg PO HS 01/27/22 [History] Clopidogrel [Plavix] 75 mg PO DAILY tab 01/31/22 [Rx] Metoprolol Succinate (ER) [Toprol XL] 25 mg PO HS 03/20/22 [History] Atorvastatin [Lipitor] 80 mg PO HS 03/21/22 [History] HYDROcodone/APAP 5-325MG [[place] 5-325] 1 tab PO Q4HR PRN 3 Days #18 tab 04/05/22 [Rx] Apixaban [Eliquis] 5 mg PO BID 30 Days #60 tab 04/06/22 [Rx] Follow up Appointment(s)/Referral(s): Hayley White MD [Primary Care Provider] - 1-2 days
[2022-04-06] MEDS ORDERED: APIXABAN 5 MG TAB PO SCH (12:15)
[2022-04-06 18:19] LABS: Basophils # (A) 0.1 k/uL (0-0.2); Basophils % (A) 1 %; Eosinophils # (A) 0.8 k/uL (0-0.7); Eosinophils % (A) 7 %; HCT 42.3 % (39.0-53.0); HGB 14.2 gm/dL (13.0-17.5); Lymphocytes # (A) 2.3 k/uL (1.0-4.8); Lymphocytes % (A) 19 %; MCH 35.3 pg (25.0-35.0); MCHC 33.6 g/dL (31.0-37.0); Macrocytosis Slight; Monocytes # (A) 0.8 k/uL (0-1.0); Monocytes % (A) 6 %; Neutrophils % (A) 65 %; Platelet Count 150 k/uL (150-450); RBC 4.03 m/uL (4.30-5.90); RDW 11.8 % (11.5-15.5); WBC 12.2 k/uL (3.8-10.6)
[2022-04-06 18:24] LABS: African American GFR (CKD) >90 (>60 ml/min/1.73 sqM); Anion Gap 13 mmol/L; Blood Urea Nitrogen 20 mg/dL (9-20); Calcium 9.3 mg/dL (8.4-10.2); Carbon Dioxide 25 mmol/L (22-30); Chloride 98 mmol/L (98-107); Glucose 165 mg/dL (74-99); Non-African American GFR(CKD) 86 (>60 ml/min/1.73 sqM); Potassium 4.4 mmol/L (3.5-5.1); Sodium 136 mmol/L (137-145)
[2022-04-06 18:44] LABS: ALT 39 U/L (4-49); AST 38 U/L (17-59); Alkaline Phosphatase 85 U/L (38-126); Total Bilirubin 0.9 mg/dL (0.2-1.3); Total Protein 6.7 g/dL (6.3-8.2)
== END 2022-04-06 14:50 | disposition home or self-care (01) | DRG 269 ==
LOC: EC 17:25 → 3SCARD 21:26
PROVIDERS: ADMIT Internal Medicine; ATTEND Internal Medicine
PROC: 04V03DZ Restriction of Abdominal Aorta with Intraluminal Device, Percutaneous Approach (ICD-10-PCS; principal; 2022-04-03 07:30)
PROC: 047D3FZ Dilation of Left Common Iliac Artery with Three Intraluminal Devices, Percutaneous Approach (ICD-10-PCS; 2022-04-03 07:30)
DX: I71.40 Abdominal aortic aneurysm, without rupture, unspecified (principal); I82.431 Acute embolism and thrombosis of right popliteal vein; I72.3 Aneurysm of iliac artery; I70.201 Unspecified atherosclerosis of native arteries of extremities, right leg; I10 Essential (primary) hypertension; I08.1 Rheumatic disorders of both mitral and tricuspid valves; E78.5 Hyperlipidemia, unspecified; I49.1 Atrial premature depolarization; I25.10 Atherosclerotic heart disease of native coronary artery without angina pectoris; Z95.820 Peripheral vascular angioplasty status with implants and grafts; Z95.1 Presence of aortocoronary bypass graft; Z79.82 Long term (current) use of aspirin; Z79.899 Other long term (current) drug therapy; Z79.02 Long term (current) use of antithrombotics/antiplatelets; Z88.5 Allergy status to narcotic agent; Z87.891 Personal history of nicotine dependence; Z95.5 Presence of coronary angioplasty implant and graft
CPT/HCPCS: 34705; 36415; 75635; 80053; 82550; 83605; 83735; 85025; 85610; 85730; 93005; 93970; 96365; 96366; 96375; 96376; 99285

== ENCOUNTER 2022-04-16 05:46 | Inpatient (IN) | payer MEDICARE ==
[2022-04-12 10:28] VITALS: BMI 27.3
[2022-04-16] MEDS ORDERED: DEXAMETHASONE SOD PHOSPHATE 4 MG/ML 1 ML VIAL IV ONE (05:54)
[2022-04-16] MEDS ORDERED: ONDANSETRON 4 MG/2 ML VIAL IVP ONE ×2 (05:54→07:00)
[2022-04-16] MEDS ORDERED: MIDAZOLAM 2 MG/2 ML VIAL IV PRN (05:54)
[2022-04-16] MEDS ORDERED: LIDOCAINE 1% (10MG/ML) FOR IV START INTRADERMA PRN (05:54)
[2022-04-16] MEDS: LACTATED RINGERS 1,000 ML IV SCH (07:00)
[2022-04-16] MEDS ORDERED: DEXAMETHASONE SOD PHOSPHATE 4 MG/ML 1 ML VIAL IVP ONE (07:07)
[2022-04-16] MEDS ORDERED: fentaNYL (PF) 50 MCG/ML 2 ML AMP ONE (07:15)
[2022-04-16] MEDS ORDERED: GLYCOPYRROLATE 0.2 MG/ML 2 ML VIAL ONE (07:15)
[2022-04-16] MEDS ORDERED: ROCURONIUM 10 MG/ML (5 ML VIAL) IV ONE (07:15)
[2022-04-16] MEDS ORDERED: LIDOCAINE 2% INJ 20 MG/ML (2 ML VIAL) ONE (07:15)
[2022-04-16] MEDS ORDERED: NEOSTIGMINE 1 MG/ML 10 ML VIAL ONE (07:15)
[2022-04-16] MEDS ORDERED: PHENYLEPHRINE-0.9% NACL SYG 1,000 MCG/10 ML SYRINGE ONE (07:15)
[2022-04-16] MEDS ORDERED: SUCCINYLCHOLINE CHLORIDE 200 MG/10 ML VIAL IV ONE (07:15)
[2022-04-16] MEDS ORDERED: HEPARIN SODIUM,PORCINE 10,000 UNIT/ML 1 ML VIAL ONE (07:15)
[2022-04-16] MEDS ORDERED: PROTAMINE SULFATE 10 MG/ML 5 ML VIAL IV ONE (07:15)
[2022-04-16] MEDS ORDERED: PROPOFOL 10 MG/ML 20 ML VIAL IV ONE (07:15)
[2022-04-16] MEDS ORDERED: ePHEDrine 50 MG/ML 1 ML VIAL ONE (07:15)
[2022-04-16] MEDS ORDERED: ceFAZolin 4 GM in SODIUM CHLORIDE 0.9% 1,000 ML IRRIGATION ONE (08:09)
[2022-04-16] MEDS ORDERED: HEPARIN SODIUM,PORCINE 10,000 UNIT in SODIUM CHLORIDE 0.9% 1,000 ML IRRIGATION ONE (08:09)
[2022-04-16] MEDS ORDERED: LACTATED RINGERS 1,000 ML IV ONE ×2 (08:11→10:03)
[2022-04-16] MEDS ORDERED: GELATIN SPONGE,ABSORB (LARGE) 1 EACH SPONGE TOPICAL ONE (10:23)
[2022-04-16] MEDS ORDERED: THROMBIN (BOVINE) 5,000 UNIT VIAL TOPICAL ONE (10:23)
--- NOTE | 2022-04-16 12:08 | P.OP ---
Date of Procedure: 04/16/22 Description of Procedure: Preoperative diagnosis: Critical limb ischemia, rest pain, thrombosed popliteal artery aneurysm Postoperative diagnosis: Same Procedure: Right femoral to tibial peroneal trunk bypass with in situ saphenous vein #2 posterior tibial artery endarterectomy Surgeon: Lizz Hicks D.O. Front Man: Karey EBL: 100 mL IV fluids: See records Drains: None Urine output: See records Specimen: right femoral lymph node Complications: None Condition: Stable, extubated in the OR to PACU Operative indication and findings: The patient is a 76-year-old male. He had a previous history of a thrombosed right popliteal artery aneurysm. At that time he had significant pain. Initially due to his large size aneurysms up in his abdomen and iliac, those were treated first he presents today for femoral tibial bypass for his continued significant pain for which he can only walk a few steps. Risks and benefits were discussed including but not limited to bleeding, infection, limb loss, heart attack, poor wound healing and . The patient seemingly understood and was willing to proceed. Procedure in detail: Patient taken to the operative suite placed in supine position and intubated. A Hicks catheter was placed. The abdomen and right lower extremity prepped and draped in usual sterile fashion. A preprocedure timeout was performed and all parties are in agreement. An oblique incision was made in the right groin with the scalpel. It was deepened through subcutaneous tissues with electrocautery. The encountered lymphatics were ligated and divided. The femoral sheath was opened sharply. The common femoral artery was dissected free circumferentially. The dissection was extended proximally to the level of the inguinal ligament, and distally to include the superficial femoral and profunda femoris arteries. They were encircled with vessel loops. Attention was then turned towards the below-knee incision. It was made in the medial condyle and deepened through the fascia with care to avoid the saphenous vein. The popliteal artery was identified. It was carried down through the muscle with tedious dissection away from the muscle. The tibial peroneal trunk was then identified as well as the take off the peroneal and posterior tibial arteries. The vein was retracted laterally. Vessel loops were placed after careful circumferential dissection. There was significant calcific disease in the vessel. . Attention was then turned towards the vein itself at the level of the midcalf. the vein was identified and dissected free. Any branches were ligated with 3-0 silk ties and clips. This was done to the level of the knee. At that point the patient was heparinized and ACT is were followed. Once heparinization was adequate, flow was occluded through the vessel. An 11 blade was utilized and arteriotomy is made the Gracía-Churchill scissors was utilized to enlarge the arteriotomy. There was good inflow from the proximal artery. The saphenous vein was then ligated proximally utilizing 6-0 Prolene. An anastomosis created using 6-0 Prolene between the femoral artery and the saphenous vein. At that point a valvulotome was passed with times with return of adequate blood flow through the graft itself. The vein was marked. An arteriotomy at the tibi al peroneal trunk and extended onto the posterior tibial artery was performed. There was significant calcific disease of an endarterectomy was performed at this site. Dilators were then used to evaluate the vessel and appeared to be adequate backbleeding from both the peroneal and the posterior tibial arteries. The vein was cut to size and spatulated. Utilizing 6-0 Prolene an anastomosis was created. Hemostasis was achieved with interrupted sutures of 6-0 Prolene and Surgicel. At this point all anastomoses were completed and flow was resumed through the bypass graft. A Doppler was utilized to confirm multiphasic flow distally to the anastomosis. Ultrasound was then utilized and the multiple branches were identified. Incisions were made overlying and carried down through the subcutaneous tissue. The branches were ligated with hemoclips. The wound was copiously irrigated with antibiotic solution. Hemostasis was achieved electrocautery and hemoclips. The femoral sheath was reapproximated with interrupted sutures of 3-0 Vicryl. The subcuticular tissue was reapproximated with 3-0 Vicryl. The skin was reprepped with running sutures of 4-0 Monocryl. The popliteal fascia was reapproximated with 3-0 Vicryl. The subcutaneous tissues were reapproximated with 3-0 Vicryl and the skin with stephanie.. Dressings were placed. This multiphasic posterior tibial signal at the ankle at the conclusion of the case..
[2022-04-16] MEDS ORDERED: ONDANSETRON 4 MG/2 ML VIAL IVP PRN (12:10)
[2022-04-16] MEDS ORDERED: HYDROcodone/APAP 5-325MG 1 EACH TAB PO PRN (12:10)
[2022-04-16] MEDS ORDERED: MORPHINE SULFATE 4 MG/ML SYRINGE IVP PRN (12:10)
[2022-04-16] MEDS: HYDROmorphone 0.5 MG/0.5 ML SYRINGE IVP PRN ×2 (12:19→12:45)
--- NOTE | 2022-04-16 19:00 | P.CONS ---
History of Present Illness - Reason for Consult Consult date: 04/16/22 - History of Present Illness Randell Machado, is a 76-year-old male who was admitted to [facility] by Dr. Hicks and underwent right femoral to tibial peroneal trunk bypass with in situ saphenous vein and posterior Tibial artery endarterectomy Medical consultation was requested for management while hospitalized. Patient has a known history of severe peripheral vascular disease, history of coronary artery disease status post coronary artery bypass graft surgery and previous history of angioplasty and stent placement, underlying history of hypertension, underlying history of hyperlipidemia, prolonged history of smoking patient quit smoking recently. On review of systems agent is complaining of mild discomfort in the right lower extremity otherwise he denies any complaints there is no fever or chills no headache or dizziness no chest pain no shortness of breath no cough no nausea or vomiting no abdominal pain no diarrhea no burning with urination no frequency or urgency and no hematuria Past Medical History Past Medical History: Coronary Artery Disease (CAD), Hyperlipidemia, Hypertension, Vascular Disorder Additional Past Medical History / Comment(s): hemorrhoids,cramping rt leg with activity, AAA, History of Any Multi-Drug Resistant Organisms: None Reported Past Surgical History: Adenoidectomy, Coronary Bypass/CABG, Heart Catheterization, Hernia Repair, Tonsillectomy Additional Past Surgical History / Comment(s): Aortogram, ibrahima inguinal hernias, lung bx, stents in right leg, CBAG 2012, endovascular aortic repair Past Anesthesia/Blood Transfusion Reactions: No Reported Reaction Past Psychological History: No Psychological Hx Reported Smoking Status: Former smoker Past Alcohol Use History: None Reported Additional Past Alcohol Use History / Comment(s): quit smoking Dec 2017 started smoking at age 26,1ppd Past Drug Use History: None Reported - Past Family History Mother Family Medical History: Cancer Medications and Allergies Home Medications Medication Instructions Recorded Confirmed Type Aspirin [Adult Low Dose Aspirin EC] 81 mg PO DAILY 03/19/18 04/16/22 History Losartan [Cozaar] 50 mg PO DAILY 03/19/18 04/16/22 History Multivit-Min/FA/Lycopen/Lutein 1 tab PO DAILY 04/27/18 04/16/22 History [Centrum Silver Men Tablet] Ezetimibe [Zetia] 10 mg PO HS 01/27/22 04/16/22 History Clopidogrel [Plavix] 75 mg PO DAILY tab 01/31/22 04/16/22 Rx Metoprolol Succinate (ER) [Toprol 25 mg PO HS 03/20/22 04/16/22 History XL] Atorvastatin [Lipitor] 80 mg PO HS 03/21/22 04/16/22 History HYDROcodone/APAP 5-325MG [[place] 1 tab PO Q4HR PRN 3 Days #18 tab 04/05/22 1 06/16/21 Rx 5-325] Apixaban [Eliquis] 5 mg PO BID 30 Days #60 tab 04/06/22 04/16/22 Rx Allergies Allergy/AdvReac Type Severity Reaction Status Date / Time meperidine [From Demerol] AdvReac Nausea Verified 04/16/22 06:31 Physical Exam Vitals: Vital Signs Temp Pulse Resp BP Pulse Ox 04/16/22 16:23 75 14 96/59 94 L 04/16/22 16:10 75 04/16/22 14:49 69 103/58 95 04/16/22 14:00 65 16 105/63 95 04/16/22 13:50 69 04/16/22 13:47 70 15 115/57 94 L 04/16/22 13:30 97.3 F L 70 14 106/65 94 L 04/16/22 12:45 61 18 106/58 98 04/16/22 12:30 67 12 101/59 96 04/16/22 12:15 76 12 107/62 96 04/16/22 11:48 97.6 F 88 12 111/71 93 L 04/16/22 06:42 97.5 F L 56 L 16 141/79 98 Intake and Output 04/16/22 04/16/22 04/16/22 06:59 14:59 22:59 Intake Total 2653 Output Total 770 Balance 1883 Intake: IV 2653 Output: Urine 670 Estimated Blood Loss 100 Other: Voiding Method Indwelling Catheter Indwelling Catheter # Bowel Movements 0 Weight 85.3 kg In general patient is alert and oriented x 3 in no distress HEENT head normocephalic and atraumatic Neck is supple no JVD no goiter no lymphadenopathy no carotid bruit Chest examination is clear to auscultation no crackles no wheezing Cardiac exam reveals regular heart sounds S1 and S2 no gallops no murmurs Abdomen is soft nontender no organomegaly with normal bowel sounds Extremity exam reveals no edema no cyanosis or clubbing Neurological examination reveals no gross focal deficits Assessment and Plan Plan: Severe peripheral vascular disease, with critical limb ischemia, patient underwent right femoral to tibial peroneal trunk bypass with in situ saphenous vein, and posterior Tibial artery endarterectomy by Dr. Hicks today Underlying history of hypertension Underlying history of hyperlipidemia Underlying history of coronary artery disease with previous history of coronary artery bypass graft surgery At this time patient was seen and examined on the medical floor Home medications reviewed and reordered Per Dr. Hicks will hold Eliquis for today, continue with aspirin and Plavix Will check labs and follow-up in a.m.
[2022-04-16] MEDS: EZETIMIBE 10 MG TAB PO SCH (20:25)
[2022-04-16] MEDS: METOPROLOL SUCCINATE (ER) 25 MG TAB.ER.24H PO SCH (20:26)
[2022-04-16] MEDS: ATORVASTATIN 80 MG TAB PO SCH (20:26)
[2022-04-16] MEDS: HYDROcodone/APAP 5-325MG 1 EACH TAB PO PRN (20:43)
[2022-04-17] MEDS: LACTATED RINGERS 1,000 ML IV SCH (04:55)
[2022-04-17 08:33] LABS: HCT 34.8 % (39.0-53.0); HGB 11.8 gm/dL (13.0-17.5); MCH 34.5 pg (25.0-35.0); MCHC 33.9 g/dL (31.0-37.0); MCV 101.7 fL (80.0-100.0); Mean Platelet Volume 9.3; Platelet Count 238 k/uL (150-450); RBC 3.42 m/uL (4.30-5.90); RDW 12.4 % (11.5-15.5); WBC 16.1 k/uL (3.8-10.6)
[2022-04-17 09:00] LABS: African American GFR (CKD) >90 (>60 ml/min/1.73 sqM); Anion Gap 5 mmol/L; Blood Urea Nitrogen 19 mg/dL (9-20); Calcium 8.6 mg/dL (8.4-10.2); Carbon Dioxide 26 mmol/L (22-30); Chloride 102 mmol/L (98-107); Glucose 153 mg/dL (74-99); Non-African American GFR(CKD) 88 (>60 ml/min/1.73 sqM); Potassium 4.5 mmol/L (3.5-5.1); Sodium 133 mmol/L (137-145)
[2022-04-17] MEDS: HYDROcodone/APAP 5-325MG 1 EACH TAB PO PRN ×3 (09:19→20:15)
[2022-04-17] MEDS: LOSARTAN 50 MG TAB PO SCH (09:19)
[2022-04-17] MEDS: MULTIVITAMINS, THERA 1 EACH TAB PO SCH (09:19)
[2022-04-17] MEDS: CLOPIDOGREL 75 MG TAB PO SCH (09:19)
[2022-04-17] MEDS: ASPIRIN 81 MG PO SCH (09:19)
--- NOTE | 2022-04-17 18:05 | P.PN ---
Subjective Progress Note Date: 04/17/22 Randell Machado, is a 76-year-old male who was admitted to [facility] by Dr. Hicks and underwent right femoral to tibial peroneal trunk bypass with in situ saphenous vein and posterior Tibial artery endarterectomy Medical consultation was requested for management while hospitalized. Patient has a known history of severe peripheral vascular disease, history of coronary artery disease status post coronary artery bypass graft surgery and previous history of angioplasty and stent placement, underlying history of hypertension, underlying history of hyperlipidemia, prolonged history of smoking patient quit smoking recently. On review of systems agent is complaining of mild discomfort in the right lower extremity otherwise he denies any complaints there is no fever or chills no headache or dizziness no chest pain no shortness of breath no cough no nausea or vomiting no abdominal pain no diarrhea no burning with urination no frequency or urgency and no hematuria On 04/17/2022 patient was seen and examined on the medical floor he is alert and oriented 3 in no apparent distress there is no fever or chills no headache or dizziness no chest pain no shortness of breath no cough no nausea or vomiting no abdominal pain no diarrhea and no urinary symptoms. Yesterday Dr. Hicks advised to hold Eliquis for 24 hours. At this time will resume Eliquis, if stable patient can be discharged home tomorrow Objective - Vital Signs Vital signs: Vital Signs Temp 97.6 F 04/17/22 04:00 Pulse 77 04/17/22 04:00 Resp 18 04/17/22 04:00 BP 117/65 04/17/22 04:00 Pulse Ox 96 04/17/22 04:00 FiO2 Intake & Output 04/16/22 04/17/22 04/17/22 18:59 06:59 18:59 Intake Total 2653 Output Total 1370 1200 Balance 1283 -1200 Intake: IV 2653 Output: Urine 1270 1200 Estimated Blood Loss 100 Other: Voiding Method Indwelling Catheter Indwelling Catheter # Bowel Movements 0 - Exam In general patient is alert and oriented x 3 in no distress HEENT head normocephalic and atraumatic Neck is supple no JVD no goiter no lymphadenopathy no carotid bruit Chest examination is clear to auscultation no crackles no wheezing Cardiac exam reveals regular heart sounds S1 and S2 no gallops no murmurs Abdomen is soft nontender no organomegaly with normal bowel sounds Extremity exam reveals no edema no cyanosis or clubbing Neurological examination reveals no gross focal deficits - Labs CBC & Chem 7: 04/17/22 07:53 04/17/22 07:53 Assessment and Plan Plan: Severe peripheral vascular disease, with critical limb ischemia, patient underwe nt right femoral to tibial peroneal trunk bypass with in situ saphenous vein, and posterior Tibial artery endarterectomy by Dr. Hicks today Underlying history of hypertension Underlying history of hyperlipidemia Underlying history of coronary artery disease with previous history of coronary artery bypass graft surgery At this time patient was seen and examined on the medical floor Home medications reviewed and reordered Per Dr. Hicks will hold Eliquis for today, continue with aspirin and Plavix Will check labs and follow-up in a.m.
[2022-04-17] MEDS: ATORVASTATIN 80 MG TAB PO SCH (20:15)
[2022-04-17] MEDS: EZETIMIBE 10 MG TAB PO SCH (20:15)
[2022-04-17] MEDS: METOPROLOL SUCCINATE (ER) 25 MG TAB.ER.24H PO SCH (20:16)
[2022-04-18] MEDS: HYDROcodone/APAP 5-325MG 1 EACH TAB PO PRN ×3 (01:55→15:04)
[2022-04-18] MEDS: LACTATED RINGERS 1,000 ML IV SCH (07:11)
[2022-04-18 08:13] LABS: Basophils % (A) 0 %; Eosinophils # (A) 0.4 k/uL (0-0.7); Eosinophils % (A) 3 %; HCT 37.6 % (39.0-53.0); HGB 12.6 gm/dL (13.0-17.5); Lymphocytes # (A) 1.7 k/uL (1.0-4.8); Lymphocytes % (A) 13 %; MCH 34.3 pg (25.0-35.0); MCHC 33.6 g/dL (31.0-37.0); MCV 102.3 fL (80.0-100.0); Macrocytosis Slight; Monocytes # (A) 0.8 k/uL (0-1.0); Monocytes % (A) 6 %; Neutrophils # (A) 10.1 k/uL (1.3-7.7); Neutrophils % (A) 76 %; Platelet Count 222 k/uL (150-450); RBC 3.68 m/uL (4.30-5.90); RDW 12.3 % (11.5-15.5); WBC 13.4 k/uL (3.8-10.6)
[2022-04-18] MEDS: MULTIVITAMINS, THERA 1 EACH TAB PO SCH (08:23)
[2022-04-18] MEDS: LOSARTAN 50 MG TAB PO SCH (08:24)
[2022-04-18] MEDS: ASPIRIN 81 MG PO SCH (08:24)
[2022-04-18] MEDS: CLOPIDOGREL 75 MG TAB PO SCH (08:24)
[2022-04-18 08:30] LABS: ALT 20 U/L (4-49); AST 22 U/L (17-59); African American GFR (CKD) >90 (>60 ml/min/1.73 sqM); Albumin 3.6 g/dL (3.5-5.0); Alkaline Phosphatase 74 U/L (38-126); Anion Gap 6 mmol/L; Blood Urea Nitrogen 17 mg/dL (9-20); Calcium 8.5 mg/dL (8.4-10.2); Carbon Dioxide 27 mmol/L (22-30); Chloride 99 mmol/L (98-107); Glucose 125 mg/dL (74-99); Non-African American GFR(CKD) 86 (>60 ml/min/1.73 sqM); Potassium 4.2 mmol/L (3.5-5.1); Sodium 132 mmol/L (137-145); Total Bilirubin 1.1 mg/dL (0.2-1.3); Total Protein 6.2 g/dL (6.3-8.2)
--- NOTE | 2022-04-18 11:14 | P.PN ---
Subjective Progress Note Date: 04/17/22 Principal diagnosis: Critical limb ischemia status post right femoral to tibial peritoneal bypass, posterior tibial artery endarterectomy The patient is seen and examined today as a follow-up. He is postop day #1 for right femoral to tibial peroneal trunk bypass with in situ vein and posterior tibial artery endarterectomy for critical limb ischemia, thrombosed popliteal artery aneurysm. Patient is doing well. He states his pain has been well- controlled. He is able to move his right lower extremity. It is warm to the touch. She has been afebrile. WBC 16 hemoglobin 11 hematocrit 34 platelet count 238,000, likely home leukocytosis related to surgery and inflammation. Objective - Vital Signs Vital signs: Vital Signs Temp 97.6 F 04/17/22 04:00 Pulse 77 04/17/22 04:00 Resp 18 04/17/22 04:00 BP 117/65 04/17/22 04:00 Pulse Ox 96 04/17/22 04:00 FiO2 Intake & Output 04/16/22 04/17/22 04/17/22 18:59 06:59 18:59 Intake Total 2653 118 Output Total 1370 1200 Balance 1283 -1200 118 Intake: IV 2653 Oral 118 Output: Urine 1270 1200 Estimated Blood Loss 100 Other: Voiding Method Indwelling Catheter Indwelling Catheter # Bowel Movements 0 - Exam General appearance: The patient is alert, oriented, appears in no acute distress. HET: Head is normocephalic and atraumatic. Pupils are equal and reactive. Neck: Supple without lymphadenopathy. Trachea midline. No audible carotid bruit. Heart: Regular. Lungs: Equal expansion, normal respiratory effort. Abdomen: Soft, nontender, nondistended. Extremities: Normal skin color and turgor. Right lower extremity swelling. Pal pable popliteal pulse, multiphasic PT signal. Good capillary refill. Able to wiggle toes, warm to the touch. Incision sites clean dry and intact with the dressing in place. Neurological: No focal deficits. Strength and sensation are grossly intact. - Labs CBC & Chem 7: 04/18/22 07:43 04/18/22 07:43 Assessment and Plan Assessment: 1. Postop day #1 for right thumb/tib-fib peroneal trunk bypass with in situ ve in, posterior tibial artery endarterectomy 2. Critical limb ischemia, rest pain 3. Thrombosed popliteal artery aneurysm 4. History of abdominal aortic aneurysm status post EVAR Plan: 1. Encourage ambulation 2. Discontinue Hicks catheter 3. Discontinue Eliquis 4. Continue aspirin Plavix and statin Plan for discharge within the next 24 hours The impression and plan of care has been dictated as directed. Dr. Hicks I performed a history and examination of this patient, discussed the same with the dictator. I agree with the dictator's note ,documented as a scribe. Any additional findings or plans will be noted.
--- NOTE | 2022-04-18 11:20 | P.DS ---
Providers Date of admission: 04/16/22 05:46 Expected date of discharge: 04/18/22 Attending physician: Lizz Hicks DO Consults: 04/16/22 12:08 Consult Physician Routine Consulting Provider: Kd Garcia Consult Reason/Comments: med mgmnt, post bypass Do you want consulting provider notified?: Yes Primary care physician: [facility] Course: 76-year-old male patient with previous history thrombosed right popliteal artery aneurysm however also had a large sized abdominal aortic aneurysm so that was treated first. Patient had recent history of abdominal aortic aneurysm who underwent EVAR iliac stenting. He was scheduled for outpatient right femoral/tibial bypass. The patient is seen and examined today as a follow-up. He is postop day #2 for right femoral to tibial peroneal trunk bypass with in situ vein and posterior tibial artery endarterectomy for critical limb ischemia, thrombosed popliteal artery aneurysm. Patient is doing well. He states his pain has been well-controlled. He is able to move his right lower extremity. It is warm to the touch. She has been afebrile. Yesterday his point catheter was removed, he has been voiding without difficulty. He has been up and ambulating in his room and hallway. He states he does have some pain with ambulation but improved prior then surgery. He's been afebrile. WBC trending down from 16-13, again likely all inflammatory/reactive. Patient will not resume Eliquis he will continue Plavix aspirin and a atorvastatin. Plan for discharge this afternoon, home health care has been set up from the office. Patient local home with a walker. Exam General appearance: The patient is alert, oriented, appears in no acute distress. HET: Head is normocephalic and atraumatic. Pupils are equal and reactive. Neck: Supple without lymphadenopathy. Trachea midline. No audible carotid bruit. Heart: Regular. Lungs: Equal expansion, normal respiratory effort. Abdomen: Soft, nontender, nondistended. Extremities: Normal skin color and turgor. Right lower extremity swelling. Palpable popliteal pulse, multiphasic PT signal. Good capillary refill. Able to wiggle toes, warm to the touch. Incision sites clean dry and intact with the dressing in place. Neurological: No focal deficits. Strength and sensation are grossly intact. The impression and plan of care has been dictated as directed. Dr. Perez I performed a history and examination of this patient, discussed the same with the dictator. I agree with the dictator's note ,documented as a scribe. Any additional findings or plans will be noted. Procedures: Procedure: Right femoral to tibial peroneal trunk bypass with in situ saphenous vein #2 posterior tibial artery endarterectomy Patient Condition at Discharge: Stable Plan - Discharge Summary Discharge Rx Participant: No New Discharge Prescriptions: Continue Losartan [Cozaar] 50 mg PO DAILY Aspirin [Adult Low Dose Aspirin EC] 81 mg PO DAILY Multivit-Min/FA/Lycopen/Lutein [Centrum Silver Men Tablet] 1 tab PO DAILY Atorvastatin [Lipitor] 80 mg PO HS Ezetimibe [Zetia] 10 mg PO HS Clopidogrel [Plavix] 75 mg PO DAILY tab Metoprolol Succinate (ER) [Toprol XL] 25 mg PO HS HYDROcodone/APAP 5-325MG [[place] 5-325] 1 tab PO Q4HR PRN 3 Days #18 tab PRN Reason: Pain Discontinued Apixaban [Eliquis] 5 mg PO BID 30 Days #60 tab Discharge Medication List Aspirin [Adult Low Dose Aspirin EC] 81 mg PO DAILY 03/19/18 [History] Losartan [Cozaar] 50 mg PO DAILY 03/19/18 [History] Multivit-Min/FA/Lycopen/Lutein [Centrum Silver Men Tablet] 1 tab PO DAILY 1 06/27/17 [History] Ezetimibe [Zetia] 10 mg PO HS 01/27/22 [History] Clopidogrel [Plavix] 75 mg PO DAILY tab 01/31/22 [Rx] Metoprolol Succinate (ER) [Toprol XL] 25 mg PO HS 03/20/22 [History] Atorvastatin [Lipitor] 80 mg PO HS 03/21/22 [History] HYDROcodone/APAP 5-325MG [[place] 5-325] 1 tab PO Q4HR PRN 3 Days #18 tab 04/05/22 [Rx] Follow up Appointment(s)/Referral(s): Mili Maria [NON-STAFF] - 1-2 Days Lizz Hicks DO [STAFF PHYSICIAN] - 1 Week Activity/Diet/Wound Care/Special Instructions: No driving for two days. Avoid heavy lifting greater than 10 lbs , pushing, pulling, straining, flights of stairs for three days. ok to shower tomorrow but no baths, pools, soaking in tubs for three days to avoid risk of infection. signs of infection ie: fever, rash, drainage from puncture site, swelling contact doctor or return to ER immediately. Heavy bleeding from incision site apply firm direct pressure and return to ER. Do not attempt to drive self. low sodium/low fat diet Discharge Disposition: HOME WITH HOME HEALTH SERVICES
[2022-04-18 13:59] VITALS: TEMP 98.4
[2022-04-18 14:02] VITALS: BP 131/74; PULSE 80; RESP 18
[2022-04-18] MEDS ORDERED: MAGNESIUM HYDROXIDE 2,400 MG/10 ML CUP PO PRN (15:38)
--- NOTE | 2022-04-18 18:07 | P.PN ---
Subjective Progress Note Date: 04/18/22 Randell Machado, is a 76-year-old male who was admitted to [facility] by Dr. Hicks and underwent right femoral to tibial peroneal trunk bypass with in situ saphenous vein and posterior Tibial artery endarterectomy Medical consultation was requested for management while hospitalized. Patient has a known history of severe peripheral vascular disease, history of coronary artery disease status post coronary artery bypass graft surgery and previous history of angioplasty and stent placement, underlying history of hypertension, underlying history of hyperlipidemia, prolonged history of smoking patient quit smoking recently. On review of systems agent is complaining of mild discomfort in the right lower extremity otherwise he denies any complaints there is no fever or chills no headache or dizziness no chest pain no shortness of breath no cough no nausea or vomiting no abdominal pain no diarrhea no burning with urination no frequency or urgency and no hematuria On 04/17/2022 patient was seen and examined on the medical floor he is alert and oriented 3 in no apparent distress there is no fever or chills no headache or dizziness no chest pain no shortness of breath no cough no nausea or vomiting no abdominal pain no diarrhea and no urinary symptoms. Yesterday Dr. Hicks advised to hold Eliquis for 24 hours. At this time will resume Eliquis, if stable patient can be discharged home tomorrow On 04/18/2022 patient was seen and examined on the medical floor he is alert and oriented 3 in no apparent distress there is no fever or chills no headache or dizziness no chest pain no shortness of breath no cough no nausea or vomiting no abdominal pain no diarrhea and no urinary symptoms. Dr. Hicks advised that there is no need for patient to continue on Eliquis. He will be discharged to home today Objective - Vital Signs Vital signs: Vital Signs Temp 98.4 F 04/18/22 08:15 Pulse 80 04/18/22 12:15 Resp 18 04/18/22 12:15 BP 131/74 04/18/22 12:15 Pulse Ox 95 04/18/22 12:15 FiO2 Intake & Output 04/17/22 04/18/22 04/18/22 18:59 06:59 18:59 Intake Total 448 118 Output Total 1150 Balance -702 118 Intake: Oral 448 118 Output: Urine 1150 Other: Voiding Method Indwelling Catheter Indwelling Catheter # Voids 1 - Exam In general patient is alert and oriented x 3 in no distress HEENT head normocephalic and atraumatic Neck is supple no JVD no goiter no lymphadenopathy no carotid bruit Chest examination is clear to auscultation no crackles no wheezing Cardiac exam reveals regular heart sounds S1 and S2 no gallops no murmurs Abdomen is soft nontender no organomegaly with normal bowel sounds Extremity exam reveals no edema no cyanosis or clubbing Neurological examination reveals no gross focal deficits - Labs CBC & Chem 7: 04/18/22 07:43 04/18/22 07:43 Labs: Abnormal Lab Results - Last 24 Hours (Table) 04/18/22 04/18/22 Range/Units 07:43 07:43 WBC 13.4 H (3.8-10.6) k/uL RBC 3.68 L (4.30-5.90) m/uL Hgb 12.6 L (13.0-17.5) gm/dL Hct 37.6 L (39.0-53.0) % MCV 102.3 H (80.0-100.0) fL Neutrophils # 10.1 H (1.3-7.7) k/uL Sodium 132 L (137-145) mmol/L Glucose 125 H (74-99) mg/dL Total Protein 6.2 L (6.3-8.2) g/dL Assessment and Plan Plan: Severe peripheral vascular disease, with critical limb ischemia, patient underwent right femoral to tibial peroneal trunk bypass with in situ saphenous vein, and posterior Tibial artery endarterectomy by Dr. Hicks today Underlying history of hypertension Underlying history of hyperlipidemia Underlying history of coronary artery disease with previous history of coronary artery bypass graft surgery At this time patient was seen and examined on the medical floor Home medications reviewed and reordered Per Dr. Hicks will hold Eliquis for today, continue with aspirin and Plavix Will check labs and follow-up in a.m.
--- NOTE | 2022-04-23 11:38 | CDI ---
Documentation Clarification Form Date: 04/23/22 From: Honey Stoner Admit Date: 04/16/2022 05:46:00 AM Patient Name: Randell Machado Visit Number: [id number] Discharge Date: 04/18/2022 04:08:00 PM ATTENTION: The Clinical Documentation Specialists (CDI) and [facility] Coding Staff appreciate your assistance in clarifying documentation. Please respond to the clarification below the line at the bottom and electronically sign. The CDI & [facility] Coding staff will review the response and follow-up if needed. Please note: Queries are made part of the Legal Health Record. If you have any questions, please contact the author of this message via ITS. Dr. Lizz Hicks, CHF, HTN, CKD and T2DM are documented in your office H&P in view chart, but is not noted in subsequent documentation. Clarification is requested. History/Risk Factors: aneurysm of popliteal artery, ASPVD of right leg with rest pain, HLD, AAA, CAD Clinical Indicators: No CXR, GFR 88/86 Treatment: Cozaar, Toprol XL, no diabetic meds Please clarify the following three diagnoses below: [ ] CHF confirmed, remains under treatment [ ] CKD confirmed, remains under treatment [ ] T2DM confirmed, remains under treatment [ ] Other condition, please specify [ ] Unable to determine __No substantiating evidence of ckd, t2dm or current chf. MTDD
== END 2022-04-18 16:08 | disposition home health service (06) | DRG 254 ==
LOC: 2ORMAIN 05:46 → 3SCARD 12:24
PROVIDERS: ADMIT Surgery; ATTEND Surgery
PROC: 041K09L Bypass Right Femoral Artery to Popliteal Artery with Autologous Venous Tissue, Open Approach (ICD-10-PCS; principal; 2022-04-16 07:30)
PROC: 04CR0ZZ Extirpation of Matter from Right Posterior Tibial Artery, Open Approach (ICD-10-PCS; principal; 2022-04-16 07:30)
DX: I72.4 Aneurysm of artery of lower extremity (principal); I70.221 Atherosclerosis of native arteries of extremities with rest pain, right leg; D72.829 Elevated white blood cell count, unspecified; I10 Essential (primary) hypertension; E78.5 Hyperlipidemia, unspecified; I71.40 Abdominal aortic aneurysm, without rupture, unspecified; I25.10 Atherosclerotic heart disease of native coronary artery without angina pectoris; Z79.01 Long term (current) use of anticoagulants; Z79.82 Long term (current) use of aspirin; Z79.02 Long term (current) use of antithrombotics/antiplatelets; Z79.899 Other long term (current) drug therapy; Z86.79 Personal history of other diseases of the circulatory system; Z87.891 Personal history of nicotine dependence; Z95.1 Presence of aortocoronary bypass graft; Z95.5 Presence of coronary angioplasty implant and graft; Z88.5 Allergy status to narcotic agent
CPT/HCPCS: 80048; 80053; 85025; 85027; 86850; 86900; 86901; 88305; 94760

== ENCOUNTER 2022-06-05 12:42 | Day surgery (SDC) | payer MEDICARE ==
[2022-05-31 12:32] VITALS: BMI 28.0
[~2022-06-05 12:42] MED LIST changes: -ALPRAZolam 0.25 MG TAB PO PRN; +LACTATED RINGERS 1,000 ML IV SCH; +LIDOCAINE 1% (10MG/ML) FOR IV START INTRADERMA PRN; +Pre Op ABX Message 1 EACH MISC MISCELLANE ONE; -SODIUM CHLORIDE 0.9% 1,000 ML in EMPTY BAG 1 BAG IV ONE
[2022-06-05] MEDS ORDERED: ONDANSETRON 4 MG/2 ML VIAL ONE (13:03)
[2022-06-05 13:14] VITALS: TEMP 96.9
[2022-06-05] MEDS ORDERED: DEXAMETHASONE SOD PHOSPHATE 4 MG/ML 1 ML VIAL IVP ONE (13:14)
[2022-06-05 13:38] LABS: Basophils % (A) 0 %; Eosinophils # (A) 0.2 k/uL (0-0.7); Eosinophils % (A) 2 %; HGB 15.1 gm/dL (13.0-17.5); Lymphocytes # (A) 2.4 k/uL (1.0-4.8); Lymphocytes % (A) 21 %; MCH 34.5 pg (25.0-35.0); MCHC 34.3 g/dL (31.0-37.0); MCV 100.7 fL (80.0-100.0); Mean Platelet Volume 8.7; Monocytes # (A) 0.6 k/uL (0-1.0); Monocytes % (A) 6 %; Neutrophils % (A) 69 %; Platelet Count 250 k/uL (150-450); RBC 4.37 m/uL (4.30-5.90); WBC 11.5 k/uL (3.8-10.6)
[2022-06-05 13:57] LABS: African American GFR (CKD) >90 (>60 ml/min/1.73 sqM); Anion Gap 6 mmol/L; Blood Urea Nitrogen 21 mg/dL (9-20); Calcium 9.3 mg/dL (8.4-10.2); Carbon Dioxide 29 mmol/L (22-30); Chloride 104 mmol/L (98-107); Glucose 104 mg/dL (74-99); Non-African American GFR(CKD) 87 (>60 ml/min/1.73 sqM); Potassium 4.4 mmol/L (3.5-5.1); Sodium 139 mmol/L (137-145)
[2022-06-05] MEDS ORDERED: fentaNYL (PF) 50 MCG/ML 2 ML AMP ONE (14:11)
[2022-06-05] MEDS ORDERED: PROPOFOL 10 MG/ML 20 ML VIAL IV ONE (14:11)
[2022-06-05] MEDS ORDERED: KETAMINE 10 MG/ML 20 ML VIAL ONE (14:11)
[2022-06-05] MEDS ORDERED: MIDAZOLAM 2 MG/2 ML VIAL ONE (14:11)
[2022-06-05] MEDS ORDERED: HYDROmorphone (PF) 1 MG/ML ONE (14:11)
[2022-06-05] MEDS ORDERED: LIDOCAINE 1% INJ 10MG/ML (10 ML MDV) SQ ONE ×4 (14:34→14:37)
[2022-06-05] MEDS ORDERED: HEPARIN SODIUM,PORCINE 2,000 UNIT in SODIUM CHLORIDE 0.9% 500 ML 500 ML IRRIGATION ONE (14:37)
[2022-06-05] MEDS ORDERED: ceFAZolin 2 GM in SODIUM CHLORIDE 0.9% 500 ML 500 ML IRRIGATION ONE (14:39)
--- NOTE | 2022-06-05 15:51 | P.OP ---
Date of Procedure: 06/05/22 Description of Procedure: Preoperative diagnosis: Previous right lower extremity femoral to below-knee bypass with saphenous vein Postoperative diagnosis: Same Procedure: Right lower extremity ligation of branches from venous conduit arterial bypass Sharp excisional debridement of right lower extremity wound to subcutaneous tissue measuring 4 x 1.1 x 0.2 cm Delayed primary closure of right lower extremity wound Surgeon: Lizz Hicks D.O. EBL: 10 mL IV fluids: 900 mL Urine output: None Drains: None Complications: none immediately apparent Condition: Stable to recovery Operative indication and findings: Patient is a 76-year-old male with a previous right lower extremity in situ saphenous vein bypass for severe peripheral arterial disease who on recent ultrasound was found to have large branches with flow disturbance therefore he was offered ligation of the branches as well as debridement of an area of dehisced wound. Risks and benefits were discussed. He seemingly understood and was willing to proceed. Procedure in detail: The patient was taken to the operative suite and placed in supine position. The right lower extremity is prepped and draped in usual sterile fashion. A preprocedure timeout was performed, all parties are in agreement. Using the ultrasound, the venous bypass graft was identified and the location of the branches were marked. There were 3 that were noted on the ultrasound. The areas were then anesthetized and incisions were made overlying and carried down to the level of the graft. The branching vessels were ligated with hemoclips. This was done at the multiple sites. At that point attention was turned towards the sharp excisional debridement. A curet was utilized in the devitalized tissue was debrided. Given the location close to a portion of the previously made incision it was decided that attempts will be made to close this given the appropriate looking appearance of the tissue itself. The skin at all sites was cleansed. The deep dermal tissues were reapproximated with interrupted sutures of 3-0 Vicryl. The skin at the new incisions was reapproximated with running 4-0 Monocryl in subcuticular fashion. The delayed primary closure site was reapproximated with interrupted sutures of 3-0 nylon. Surgical dressings were placed. The patient was allowed awaken from anesthesia and transferred to recovery in stable condition having tolerated the procedure well. Plan - Discharge Summary Discharge Rx Participant: No New Discharge Prescriptions: No Action Losartan [Cozaar] 50 mg PO DAILY Aspirin [Adult Low Dose Aspirin EC] 81 mg PO DAILY Multivit-Min/FA/Lycopen/Lutein [Centrum Silver Men Tablet] 1 tab PO DAILY Atorvastatin [Lipitor] 80 mg PO HS Ezetimibe [Zetia] 10 mg PO HS Clopidogrel [Plavix] 75 mg PO DAILY tab Metoprolol Succinate (ER) [Toprol XL] 25 mg PO HS Discharge Medication List Aspirin [Adult Low Dose Aspirin EC] 81 mg PO DAILY 03/19/18 [History] Losartan [Cozaar] 50 mg PO DAILY 03/19/18 [History] Multivit-Min/FA/Lycopen/Lutein [Centrum Silver Men Tablet] 1 tab PO DAILY 04/27/18 [History] Ezetimibe [Zetia] 10 mg PO HS 01/27/22 [History] Clopidogrel [Plavix] 75 mg PO DAILY tab 01/31/22 [Rx] Metoprolol Succinate (ER) [Toprol XL] 25 mg PO HS 03/20/22 [History] Atorvastatin [Lipitor] 80 mg PO HS 03/21/22 [History] Follow up Appointment(s)/Referral(s): Lizz Hicks DO [STAFF PHYSICIAN] - 3 Weeks Activity/Diet/Wound Care/Special Instructions: resume regular diet. Resume home medications. May resume anticoagulation tomorrow. Resume regular activity as previous. May shower starting tomorrow. Keep incisions clean and dry. No soaking or tub bathing Discharge Disposition: HOME SELF-CARE
[2022-06-05] MEDS ORDERED: fentaNYL (PF) 50 MCG/1 ML VIAL IV ONE (16:29)
[2022-06-05 16:54] VITALS: BP 158/83; PULSE 59; RESP 20
== END 2022-06-05 17:25 | disposition home or self-care (01) ==
LOC: OR 12:42
PROVIDERS: ATTEND Surgery
DX: I73.9 Peripheral vascular disease, unspecified (principal); T81.31XA Disruption of external operation (surgical) wound, not elsewhere classified, initial encounter; Y83.2 Surgical operation with anastomosis, bypass or graft as the cause of abnormal reaction of the patient, or of later complication, without mention of misadventure at the time of the procedure; Z98.62 Peripheral vascular angioplasty status; I25.10 Atherosclerotic heart disease of native coronary artery without angina pectoris; Z79.02 Long term (current) use of antithrombotics/antiplatelets; Z79.899 Other long term (current) drug therapy; Z79.82 Long term (current) use of aspirin; Z95.1 Presence of aortocoronary bypass graft; Z95.5 Presence of coronary angioplasty implant and graft; Z98.890 Other specified postprocedural states; Z83.2 Family history of diseases of the blood and blood-forming organs and certain disorders involving the immune mechanism; Z82.49 Family history of ischemic heart disease and other diseases of the circulatory system; Z88.8 Allergy status to other drugs, medicaments and biological substances; Z87.891 Personal history of nicotine dependence; J44.9 Chronic obstructive pulmonary disease, unspecified; I10 Essential (primary) hypertension; E78.5 Hyperlipidemia, unspecified
CPT/HCPCS: 80048; 85025; 37650; 15002; 11042; J2250; J1644; J1100; J0690; J2405; J3010 ×2; J1170; J2001; J2704

== ENCOUNTER 2024-05-14 08:39 | Day surgery (SDC) | payer MEDICARE ==
[2024-05-13 10:09] VITALS: BMI 30.7
[2024-05-14] MEDS: IV FLUID CONTINUATION 1,000 ML IV ONE (08:53)
[2024-05-14] MEDS: EMPTY BAG 1 BAG with SODIUM CHLORIDE 0.9% 1,000 ML IV ONE (09:23)
[2024-05-14 09:26] LABS: Basophils % (A) 0 %; Eosinophils # (A) 0.2 k/uL (0-0.7); Eosinophils % (A) 2 %; HCT 48.2 % (39.0-53.0); HGB 15.6 gm/dL (13.0-17.5); Lymphocytes # (A) 1.7 k/uL (1.0-4.8); Lymphocytes % (A) 17 %; MCH 33.8 pg (25.0-35.0); MCHC 32.4 g/dL (31.0-37.0); MCV 104.4 fL (80.0-100.0); Macrocytosis Slight; Mean Platelet Volume 8.6; Monocytes # (A) 0.8 k/uL (0-1.0); Monocytes % (A) 8 %; Neutrophils % (A) 70 %; Platelet Count 201 k/uL (150-450); RBC 4.62 m/uL (4.30-5.90); RDW 11.9 % (11.5-15.5)
[2024-05-14 09:30] LABS: African American GFR (CKD) >90 (>60 ml/min/1.73 sqM); Anion Gap 3 mmol/L; Blood Urea Nitrogen 19 mg/dL (9-20); Calcium 9.3 mg/dL (8.4-10.2); Carbon Dioxide 30 mmol/L (22-30); Chloride 104 mmol/L (98-107); Glucose 108 mg/dL (74-99); Non-African American GFR(CKD) 79 (>60 ml/min/1.73 sqM); Potassium 4.6 mmol/L (3.5-5.1); Sodium 137 mmol/L (137-145)
[2024-05-14 09:45] VITALS: RESP 16; TEMP 97
[2024-05-14] MEDS: fentaNYL (PF) 50 MCG/ML 2 ML AMP IVP ONE (10:26)
[2024-05-14] MEDS: LIDOCAINE 1% INJ 10MG/ML (20 ML MDV) SQ ONE (10:26)
[2024-05-14] MEDS: MIDAZOLAM 2 MG/2 ML VIAL IVP ONE (10:27)
[2024-05-14] MEDS: NITROGLYCERIN 1000MCG/10ML SYRINGE INTRAARTER ONE (10:28)
[2024-05-14] MEDS: VERAPAMIL SYRINGE (5 MG/10 ML) INTRAARTER ONE (10:28)
[2024-05-14] MEDS: HEPARIN SODIUM 1,000 UN/ML (10ML VL) IVP ONE (10:28)
[2024-05-14] MEDS: IOPAMIDOL-300 100ML BTL INJ ONE (10:46)
--- NOTE | 2024-05-14 10:55 | P.HPIHPCON ---
History of Present Illness H&P Date: 05/14/24 Patient is a 78-year-old male in today for evaluation of his lower extremity peripheral arterial disease. He has history of multiple aneurysms and requiring bypass on the right lower extremity with popliteal artery aneurysm with occlusive disease. He has been tolerating the left lower extremity aneurysmal concern well without any significant issues until recently when he began having increasing pain with ambulation. He recently underwent ultrasound imaging which showed a diminished PAU from previously likely consistent with occlusion of the aneurysm therefore he was recommended to undergo an angiogram for surgical planning Consent for Procedure: I have explained the operation/procedure to the patient, including the risks, benefits, side effects, alternative therapies (including not receiving the proposed treatment or service), the likelihood of the patient achieving his/her goals, and potential recuperation problems for the procedure/sedation/analgesia, as well as any blood products, if indicated. I also explained to the patient the risks, benefits and side effects of the alternatives, as well as the risks related to not receiving the proposed procedure, care, treatment, or services. Past Medical History Past Medical History: Coronary Artery Disease (CAD), Deep Vein Thrombosis (DVT), Hyperlipidemia, Hypertension, Myocardial Infarction (CT), Osteoarthritis (OA), Vascular Disorder Additional Past Medical History / Comment(s): Hemorrhoids, cramping right leg with activity, AAA. Last Myocardial Infarction Date:: ? History of Any Multi-Drug Resistant Organisms: None Reported Past Surgical History: Adenoidectomy, Coronary Bypass/CABG, Heart Catheterization, Hernia Repair, Tonsillectomy Additional Past Surgical History / Comment(s): Aortogram, bilateral inguinal hernia repair, lung bx, stents in right leg, CABG 2012, endovascular aortic repair, fem-pop bypass right leg. Past Anesthesia/Blood Transfusion Reactions: Previous Problems w/ Anesthesia Additional Past Anesthesia/Blood Transfusion Reaction / Comment(s): With AAA repair had an abnormality in his heart rhythm during anesthesia, no prior problems and no problems since. Smoking Status: Current some day smoker - Past Family History Mother Family Medical History: Cancer Medications and Allergies Home Medications Medication Instructions Recorded Confirmed Type Aspirin [Adult Low Dose Aspirin EC] 81 mg PO QAM 03/19/18 05/14/24 History Losartan [Cozaar] 50 mg PO QAM 03/19/18 05/14/24 History Ezetimibe [Zetia] 10 mg PO HS 01/27/22 05/14/24 History Clopidogrel [Plavix] 75 mg PO DAILY tab 01/31/22 05/14/24 Rx Metoprolol Succinate (ER) [Toprol 25 mg PO HS 03/20/22 05/14/24 History XL] Atorvastatin [Lipitor] 80 mg PO HS 03/21/22 05/14/24 History Naproxen Sodium [Aleve] 220 mg PO BID PRN 05/13/24 05/14/24 History Allergies Allergy/AdvReac Type Severity Reaction Status Date / Time meperidine [From Demerol] AdvReac Nausea Verified 05/13/24 09:32 Surgical - Exam Vital Signs Temp Pulse Resp BP Pulse Ox 97 F L 53 L 16 132/73 95 05/14/24 09:33 05/14/24 09:33 05/14/24 09:33 05/14/24 09:33 05/14/24 09:33 General Is a pleasant operative ill no acute distress. HEENT normocephalic, atraumatic, extraocular motion intact. Heart sounds diminished. Abdomen is soft. Previous surgical scarring. Palpable pulse in right lower extremity graft. No palpable pedal pulse. Feet warm and dry. Results - Labs 05/14/24 09:10 05/14/24 09:10 Abnormal Lab Results - Last 24 Hours (Table) 05/14/24 05/14/24 Range/Units 09:10 09:10 MCV 104.4 H (80.0-100.0) fL Glucose 108 H (74-99) mg/dL Diabetes panel 05/14/24 Range/Units 09:10 Sodium 137 (137-145) mmol/L Potassium 4.6 (3.5-5.1) mmol/L Chloride 104 (98-107) mmol/L Carbon Dioxide 30 (22-30) mmol/L BUN 19 (9-20) mg/dL Creatinine 0.93 (0.66-1.25) mg/dL Glucose 108 H (74-99) mg/dL Calcium 9.3 (8.4-10.2) mg/dL Calcium panel 05/14/24 Range/Units 09:10 Calcium 9.3 (8.4-10.2) mg/dL Pituitary panel 05/14/24 Range/Units 09:10 Sodium 137 (137-145) mmol/L Potassium 4.6 (3.5-5.1) mmol/L Chloride 104 (98-107) mmol/L Carbon Dioxide 30 (22-30) mmol/L BUN 19 (9-20) mg/dL Creatinine 0.93 (0.66-1.25) mg/dL Glucose 108 H (74-99) mg/dL Calcium 9.3 (8.4-10.2) mg/dL Adrenal panel 05/14/24 Range/Units 09:10 Sodium 137 (137-145) mmol/L Potassium 4.6 (3.5-5.1) mmol/L Chloride 104 (98-107) mmol/L Carbon Dioxide 30 (22-30) mmol/L BUN 19 (9-20) mg/dL Creatinine 0.93 (0.66-1.25) mg/dL Glucose 108 H (74-99) mg/dL Calcium 9.3 (8.4-10.2) mg/dL Assessment and Plan Assessment: Iliac artery aneurysms Bilateral popliteal artery aneurysms [place] 3 peripheral arterial disease left lower extremity with severe claudication worsening Plan: Plan for aortogram with runoff. Will plan for radial approach given multiple previous surgical interventions and previous stents. Risks and benefits discussed. Patient seemingly understands and willing to proceed.
--- NOTE | 2024-05-14 11:02 | P.OP ---
Date of Procedure: 05/14/24 Description of Procedure: preoperative diagnosis: Marti 3 peripheral arterial disease left lower extremity, bilateral popliteal artery aneurysms, previous right lower extremity bypass, previous aortobiiliac stent graft Postoperative diagnosis: Same, Procedure: Ultrasound-guided left radial artery access Placement of catheter in infrarenal abdominal aorta, selective second order, from radial approach Aortogram with bilateral lower extremity runoffs Selective third order left lower extremity angiogram catheter placement in external iliac artery Moderate conscious sedation with personal monitoring certified RN administration and personal hemodynamic monitoring for 20 minutes Surgeon: Lizz Hicks D.O. EBL: Less than 5 cc IV fluids: See records Urine output: Not measured Drains: None Complications: None immediately apparent Condition: Stable to recovery Operative indication and findings: Patient is 78 a-year-old with peripheral vascular disease and multiple previous aneurysms. On workup and evaluation was found to have abnormal ABIs which had changed from previous imaging prompting re commendations for an angiogram. Risks and benefits including but not limited to bleeding, infection, injury to the vessel, stroke, cardiopulmonary risks and ischemic changes to the extremities were discussed. They seemingly understood this willing to proceed. Procedure in detail: Patient was taken to the special suite and placed in supine position. The left upper extremity was prepped and draped in usual sterile fashion. A preprocedural timeout was performed, all parties were in agreement. Using the ultrasound, the radial artery was identified. The skin overlying was anesthetized with 1% lidocaine plain. The artery was patent without significant calcific disease and a permanent image was stored. Under direct visualization, the artery was accessed and Seldinger technique was used to place a 5 slender sheath. Catheters and wires were then used to selectively place a catheter across the subclavian, into the aortic arch and then selectively in the descending thoracic aorta and down into the abdominal aorta. Aortogram was performed. Catheter was then advanced to the level of the iliac bifurcation. A bilateral lower extremity step-off was performed. After satisfactory images, catheters and wires were removed. The sheath was removed and a TR band was placed. Angiographic interpretation: Aorta appears relatively normal in course and caliber. There are previous aortobiiliac stent graft with bilateral iliac artery stenting. Mildly delayed overall flow, likely cardiac in nature. Patent visualized portions of the celiac, superior mesenteric and renal vessels. Patent internal and external iliac arteries bilaterally, mild ectasia of the internal iliac arteries. External iliac arteries appear patent without significant disease. On the right, the common femoral artery shows evidence of previous surgical interventions. The profunda appears patent without significant disease. The bypass graft appears patent without significant occlusions or stenosis. On the left, the common femoral artery has severe diffuse disease. The profunda appears patent without significant disease. The superficial femoral artery proximally has diffuse disease. Through the thigh on the right, the bypass appears patent to the level of the distal anastomosis. Difficult visualization beyond. On the left, the superficial femoral artery has mild diffuse disease throughout until the level of the adductor canal where there is some degree of high-grade stenosis versus occlusion. There is occlusion of the popliteal artery at its P1 segment with short reconstitution of the behind the knee pop and subsequent reocclusion. The anterior tibial is visualized via collateral flow. The posterior tibial is visualized initially via collateral flow with backfilling of the distal popliteal artery and tibioperoneal trunk. The peroneal artery appears patent but diminutive. The posterior tibial artery appears patent at the level of the ankle. The peroneal and anterior tibial artery is occluded shortly after the takeoff's. Plan - Discharge Summary Discharge Rx Participant: No New Discharge Prescriptions: No Action Losartan [Cozaar] 50 mg PO QAM Aspirin [Adult Low Dose Aspirin EC] 81 mg PO QAM Atorvastatin [Lipitor] 80 mg PO HS Naproxen Sodium [Aleve] 220 mg PO BID PRN PRN Reason: Pain Ezetimibe [Zetia] 10 mg PO HS Clopidogrel [Plavix] 75 mg PO DAILY tab Metoprolol Succinate (ER) [Toprol XL] 25 mg PO HS Discharge Medication List Aspirin [Adult Low Dose Aspirin EC] 81 mg PO QAM 03/19/18 [History] Losartan [Cozaar] 50 mg PO QAM 03/19/18 [History] Ezetimibe [Zetia] 10 mg PO HS 01/27/22 [History] Clopidogrel [Plavix] 75 mg PO DAILY tab 01/31/22 [Rx] Metoprolol Succinate (ER) [Toprol XL] 25 mg PO HS 03/20/22 [History] Atorvastatin [Lipitor] 80 mg PO HS 03/21/22 [History] Naproxen Sodium [Aleve] 220 mg PO BID PRN 05/13/24 [History] Follow up Appointment(s)/Referral(s): Lizz Hicks DO [STAFF PHYSICIAN] - 1 Week Patient Instructions/Handouts: Peripheral Vascular Disease (ED), Peripheral Artery Disease (ED), Moderate Sedation (DC), After Radial Heart Catheterization (GEN) Activity/Diet/Wound Care/Special Instructions: *NO LIFTING, PUSHING, OR PULLING ANYTHIN G OVER 5 POUNDS FOR 5 DAYS *NO DRIVING FOR 3 DAYS *YOU CAN REMOVE YOUR DRESSING TOMORROW BUT DO NOT SUBMERSE YOUR PUNCTURE SITE IN WATER FOR A FEW DAYS TO PREVENT INFECTION - SO NO TUB BATHS, POOLS, HOT TUBS, DISHES...ETC *ANY SIGNS OF BLEEDING (HARDNESS, SWELLING, OR EXCESSIVE BRUISING) HOLD DIRECT PRESSURE ON YOUR PUNCTURE SITE AND COME TO THE NEAREST EMERGENCY ROOM TO GET YOUR PUNCTURE SITE LOOKED AT - DO NOT DRIVE YOURSELF! EITHER CALL EMS OR HAVE SOMEONE DRIVE YOU! Discharge Disposition: HOME SELF-CARE
[2024-05-14 13:31] VITALS: PULSE 60
[2024-05-14 15:17] VITALS: BP 118/63
== END 2024-05-14 15:39 | disposition home or self-care (01) ==
LOC: CATHCVL 08:39
PROVIDERS: ATTEND Surgery
DX: I72.4 Aneurysm of artery of lower extremity (principal); I72.3 Aneurysm of iliac artery; E11.51 Type 2 diabetes mellitus with diabetic peripheral angiopathy without gangrene; I70.212 Atherosclerosis of native arteries of extremities with intermittent claudication, left leg; Z95.820 Peripheral vascular angioplasty status with implants and grafts; E11.22 Type 2 diabetes mellitus with diabetic chronic kidney disease; I13.0 Hypertensive heart and chronic kidney disease with heart failure and stage 1 through stage 4 chronic kidney disease, or unspecified chronic kidney disease; N18.9 Chronic kidney disease, unspecified; I50.9 Heart failure, unspecified; I25.10 Atherosclerotic heart disease of native coronary artery without angina pectoris; I25.2 Old myocardial infarction; Z95.1 Presence of aortocoronary bypass graft; E78.5 Hyperlipidemia, unspecified; Z79.82 Long term (current) use of aspirin; Z79.02 Long term (current) use of antithrombotics/antiplatelets; Z79.899 Other long term (current) drug therapy; Z87.891 Personal history of nicotine dependence; Z86.718 Personal history of other venous thrombosis and embolism; Z88.5 Allergy status to narcotic agent
CPT/HCPCS: 36200; 75625; 75716; 80048; 85025; C1769 ×3; C1894; J2250; J2003; J3010; J1644; Q9967; J2305

== ENCOUNTER 2024-06-17 05:37 | Inpatient (IN) | payer MEDICARE ==
[2024-06-11 10:36] VITALS: BMI 31.1
[2024-06-17] MEDS ORDERED: LIDOCAINE 1% (10MG/ML) FOR IV START INTRADERMA PRN (06:09)
[2024-06-17] MEDS: IV FLUID CONTINUATION 1,000 ML IV ONE ×4 (06:15→13:25)
[2024-06-17] MEDS: LACTATED RINGERS 1,000 ML IV SCH (06:48)
[2024-06-17] MEDS: ONDANSETRON 4 MG/2 ML VIAL IVP ONE (06:49)
[2024-06-17] MEDS: DEXAMETHASONE SOD PHOSPHATE 4 MG/ML 1 ML VIAL IV ONE (06:50)
[2024-06-17] MEDS ORDERED: HYDROmorphone 0.5 MG/0.5 ML SYRINGE IVP PRN (07:00)
[2024-06-17] MEDS: MIDAZOLAM 2 MG/2 ML VIAL IV STA (07:09)
[2024-06-17] MEDS ORDERED: KETAMINE HCL IN 0.9 % NACL 50 MG/5 ML SYRINGE ONE (07:28)
[2024-06-17] MEDS ORDERED: HEPARIN SODIUM,PORCINE 10,000 UNIT/ML 1 ML VIAL ONE (07:28)
[2024-06-17] MEDS ORDERED: MIDAZOLAM 2 MG/2 ML VIAL ONE (07:28)
[2024-06-17] MEDS ORDERED: ePHEDrine 50 MG/ML 1 ML VIAL ONE (07:28)
[2024-06-17] MEDS ORDERED: HYDROmorphone (PF) 1 MG/ML ONE (07:28)
[2024-06-17] MEDS ORDERED: fentaNYL (PF) 50 MCG/ML 2 ML AMP ONE (07:28)
[2024-06-17] MEDS ORDERED: PROPOFOL 10 MG/ML 20 ML VIAL IV ONE (07:28)
[2024-06-17 08:08] LABS: Partial Thromboplastin Time 24.8 sec (22.0-30.0); Prothrombin Time 11.2 sec (10.0-12.5)
[2024-06-17] MEDS: THROMBIN (BOVINE) 5,000 UNIT VIAL TOPICAL ONE (08:45)
[2024-06-17] MEDS: HEPARIN SODIUM,PORCINE 10,000 UNIT in LACTATED RINGERS 1,000 ML IRRIGATION ONE (08:58)
[2024-06-17] MEDS: DEXTROSE 5%-LACTATED RINGERS 1,000 ML IV ONE (08:58)
[2024-06-17] MEDS: ceFAZolin 4 GM in SODIUM CHLORIDE 0.9% 1,000 ML IRRIGATION ONE (08:59)
[2024-06-17] MEDS: HEPARIN SODIUM,PORCINE 10,000 UNIT in SODIUM CHLORIDE 0.9% 1,000 ML IRRIGATION ONE (09:00)
[2024-06-17] MEDS: LACTATED RINGERS 500 ML IV ONE (09:50)
[2024-06-17] MEDS ORDERED: MORPHINE SULFATE 4 MG/ML SYRINGE IVP PRN (11:54)
--- NOTE | 2024-06-17 11:54 | P.OP ---
Date of Procedure: 06/17/24 Description of Procedure: Preoperative diagnosis: Severe peripheral arterial disease Postoperative diagnosis: Same Procedure: Left femoral t distal popliteal bypass with CryoVein Femoral endarterectomy Surgeon: Lizz Hicks D.O. Stone Sandblaster: Nikos EBL: 150 mL IV fluids: See records Drains: None Urine output: See records Specimen: None Complications: None Condition: Stable, to PACU Operative indication and findings: Patient is a 79-year-old male with previous severe peripheral vascular disease and multiple aneurysmal areas. He had a abdominal aortic aneurysm repair with endograft as well as iliac aneurysm repair and subsequent right lower extremity femoral-popliteal bypass. He has since occluded his popliteal on the left and found to need a femoral to popliteal bypass for his rest pain of his left lower extremity. Risks and benefits were discussed. He seemingly understood and was willing to proceed. Procedure in detail: Patient taken to the operative suite placed in supine position after spinal anesthetic. MAC anesthesia was utilized. A Hicks catheter was placed. The abdomen and left lower extremity prepped and draped in usual sterile fashion. A preprocedure timeout was performed and all parties are in agreement. An incision was made in the groin with the scalpel. It was deepened through subcutaneous tissues with electrocautery. The encountered lymphatics were ligated and divided. The femoral sheath was opened sharply. The common femoral artery was dissected free circumferentially. The dissection was extended proximally to the level of the inguinal ligament. The common femoral artery was encircled with vessel loops proximally and distally. Attention was then turned towards the below-knee incision. It was made in the l medial border of the tibia.. Dissection was carried down through the tissues to the level of the popliteal fossa. The popliteal vein was identified. It was dissected down further distally. The anterior tibial vein was transected and the anterior tibial and tibioperoneal trunk were identified. Just proximal to this a vessel loop was placed for control. Proximally at the pop and vessel loop was placed. Noted to ensure adequate flow at this level and patent vessels, the patient was heparinized after the tunnel had been placed. Flow was occluded through the pop and an arteriotomy was performed. There was adequate distal backbleeding. At this point attention was turned towards the proximal anastomosis, after the cadaver vein was appropriately prepped. At the femoral site, flow was occluded through the vessel. An 11 blade was utilized and arteriotomy is made the García-Churchill scissors was utilized to enlarge the arteriotomy. There was good inflow from the proximal artery. . An anastomosis created using 5-0 Prolene between the femoral artery and the cadaver vein. An arteriotomy of the popliteal artery was then performed. There was evidence of good backbleeding. The vein was cut to size and spatulated. Utilizing 6-0 Prolene an anastomosis was created. Hemostasis was achieved with interrupted sutures of 6-0 Prolene and Surgicel. At this point all anastomoses were completed and flow was resumed through the bypass graft. A Doppler was utilized to confirm multiphasic flow distally to the anastomosis. There was a palpable dorsalis pedis. The wound was copiously irrigated with antibiotic solution. The femoral sheath was reapproximated with interrupted sutures of 3-0 Vicryl. The subcuticular tissue was reapproximated with 3-0 Vicryl. The skin was reprepped with running sutures of 4-0 Monocryl. The deep dermal tissues of the lateral incision at the calf were reapproximated with 3-0 Vicryl. The subcutaneous tissues were reapproximated with 3-0 Vicryl and the skin was reapproximated with running 4-0 Monocryl in subcuticular fashion. Dressings were placed. The patient was transferred to recovery in stable condition having tolerated the procedure well.
[2024-06-17] MEDS: droPERidol 5 MG/2 ML VIAL IVP ONE (16:35)
[2024-06-17] MEDS: ATORVASTATIN 80 MG TAB PO SCH (19:54)
[2024-06-18] MEDS: LOSARTAN 50 MG TAB PO SCH (08:16)
[2024-06-18] MEDS: ASPIRIN 81 MG PO SCH (08:17)
[2024-06-18] MEDS: CLOPIDOGREL 75 MG TAB PO SCH (08:17)
[2024-06-18 08:20] VITALS: RESP 16
[2024-06-18 09:06] LABS: HCT 39.7 % (39.0-53.0); HGB 13.5 gm/dL (13.0-17.5); MCH 34.5 pg (25.0-35.0); MCV 101.7 fL (80.0-100.0); Mean Platelet Volume 8.6; Platelet Count 185 k/uL (150-450); RDW 12.4 % (11.5-15.5); WBC 15.3 k/uL (3.8-10.6)
[2024-06-18 09:18] LABS: African American GFR (CKD) >90 (>60 ml/min/1.73 sqM); Anion Gap 9 mmol/L; Blood Urea Nitrogen 22 mg/dL (9-20); Calcium 8.9 mg/dL (8.4-10.2); Carbon Dioxide 23 mmol/L (22-30); Chloride 103 mmol/L (98-107); Glucose 180 mg/dL (74-99); Non-African American GFR(CKD) 83 (>60 ml/min/1.73 sqM); Potassium 4.3 mmol/L (3.5-5.1); Sodium 135 mmol/L (137-145)
--- NOTE | 2024-06-18 10:45 | P.CONS ---
History of Present Illness - Reason for Consult Consult date: 06/18/24 medical managment Requesting physician: Lizz Hicks - History of Present Illness Randell Machado is a 79-year-old male patient of Dr. Hodges who presented for an elective left femoral bypass and endarterectomy. Patient has a past medical history of significant peripheral vascular disease with previous right lower extremity bypass. Additional medical history includes chronic kidney disease a bdominal aortic aneurysm type 2 diabetes mellitus ongoing nicotine dependence and heart failure. Patient is currently postop day 1. Dressing is clean dry and intact. Patient reports minimum pain. Current vital signs temp 98.1, heart rate 79, respiratory rate 16, blood pressure 143/76 with a pulse ox of 93% on room air at this time patient denies chest pain or shortness of breath. Patient denies nausea vomiting or diarrhea. Patient denies any urinary burning or frequency Review of Systems Please refer to HPI otherwise unremarkable Past Medical History Past Medical History: Coronary Artery Disease (CAD), Deep Vein Thrombosis (DVT), Hyperlipidemia, Hypertension, Myocardial Infarction (MD), Osteoarthritis (OA), Vascular Disorder Additional Past Medical History / Comment(s): See Dr Hicks's H&P. Hemorrhoids, cramping right leg with activity, AAA, "bad back". Last Myocardial Infarction Date:: ? History of Any Multi-Drug Resistant Organisms: None Reported Past Surgical History: Adenoidectomy, Coronary Bypass/CABG, Heart Catheterization, Hernia Repair, Tonsillectomy Additional Past Surgical History / Comment(s): Aortogram, bilateral inguinal hernia repair, lung biopsy, stents in right leg, CABG 2012, endovascular aortic repair, fem-pop bypass right leg. Past Anesthesia/Blood Transfusion Reactions: Previous Problems w/ Anesthesia Additional Past Anesthesia/Blood Transfusion Reaction / Comm: With AAA repair had an abnormality in his heart rhythm during anesthesia, no prior problems and no problems since. Smoking Status: Current some day smoker - Past Family History Mother Family Medical History: Cancer Medications and Allergies Home Medications Medication Instructions Recorded Confirmed Type Aspirin [Adult Low Dose Aspirin EC] 81 mg PO QAM 03/19/18 06/17/24 History Losartan [Cozaar] 50 mg PO QAM 03/19/18 06/17/24 History Ezetimibe [Zetia] 10 mg PO HS 01/27/22 06/17/24 History Clopidogrel [Plavix] 75 mg PO DAILY tab 01/31/22 06/17/24 Rx Metoprolol Succinate (ER) [Toprol 25 mg PO HS 03/20/22 06/17/24 History XL] Atorvastatin [Lipitor] 80 mg PO HS 03/21/22 06/17/24 History Naproxen Sodium [Aleve] 220 mg PO BID PRN 05/13/24 06/17/24 History Allergies Allergy/AdvReac Type Severity Reaction Status Date / Time meperidine [From Demerol] AdvReac Nausea Verified 06/17/24 06:18 Physical Exam Vitals: Vital Signs Temp Pulse Resp BP BP Pulse Ox 06/18/24 08:10 98.1 F 79 16 143/76 93 L 06/18/24 04:45 72 18 139/80 93 L 06/17/24 23:16 82 18 122/78 94 L 06/17/24 19:49 97.9 F 56 L 18 126/89 93 L 06/17/24 14:15 71 14 147/89 94 L 06/17/24 13:45 75 16 154/84 96 06/17/24 13:11 63 16 138/82 96 06/17/24 12:56 62 16 161/83 96 06/17/24 12:41 61 16 148/74 150/88 100 06/17/24 12:26 66 14 145/70 150/83 97 06/17/24 12:11 64 14 136/65 153/88 94 L 06/17/24 11:56 57 L 14 145/79 158/87 99 06/17/24 11:41 66 16 146/75 143/84 98 06/17/24 11:26 97.6 F 64 16 153/74 152/86 98 Intake and Output 06/17/24 06/18/24 06/18/24 22:59 06:59 14:59 Intake Total 480 Output Total 1850 350 Balance -1850 130 Intake: Oral 480 Output: Urine 1850 350 Uretheral (Hicks) 400 Other: Voiding Method Indwelling Catheter Indwelling Catheter Urinal # Voids 1 Weight 87.5 kg Head normocephalic Neck supple Lungs clear to auscultation bilaterally no wheezing or crackles Heart regular rate and rhythm S1-S2, no rub or gallop Abdomen is soft nontender nondistended positive bowel sounds no hepatosplenomegaly Extremities no edema. Left leg dressing clean dry and intact Neuro alert and orientated to 3 Results CBC & Chem 7: 06/18/24 08:48 06/18/24 08:48 Labs: Abnormal Lab Results - Last 24 Hours (Table) 06/18/24 06/18/24 Range/Units 08:48 08:48 WBC 15.3 H (3.8-10.6) k/uL RBC 3.90 L (4.30-5.90) m/uL MCV 101.7 H (80.0-100.0) fL Sodium 135 L (137-145) mmol/L BUN 22 H (9-20) mg/dL Glucose 180 H (74-99) mg/dL Assessment and Plan Assessment: 1. Severe peripheral arterial disease status post left femoral popliteal bypass with femoral endarterectomy. Postop day 1 2. History of previous right lower extremity bypass 3. History of abdominal aortic aneurysm 4. History of coronary artery disease status post coronary artery bypass graft surgery and previous stent placement 5. History of nicotine dependence 6. History of essential hypertension 7. History of hyperlipidemia Thank you for this consultation we will continue to follow patient closely throughout stay
[2024-06-18 11:13] VITALS: BP 134/75; PULSE 87; TEMP 97.8
--- NOTE | 2024-06-18 11:33 | P.DS ---
Providers Date of admission: 06/17/24 05:37 Expected date of discharge: 06/18/24 Attending physician: Lizz Hicks DO Consults: 06/17/24 11:54 Consult Physician Routine Consulting Provider: Kd Garcia Consult Reason/Comments: med mgmnt Do you want consulting provider notified?: Yes Primary care physician: [facility] Course: 79-year-old male with history of peripheral arterial disease and multiple aneurysmal areas with previous right lower extremity from pop bypass who also had occluded his left popliteal on the left and found to need femoral to poplite al bypass for rest pain in his left lower extremity. Patient is postop day #1 for left femoral to distal popliteal bypass with CryoVein. Patient states his pain is well-managed especially while laying. Of course there is increased pain with ambulation. He has been up and ambulating in his room and will ambulate in the hallway. Hicks catheter has been discontinued and he is voiding well. He i s tolerating a diet. He is afebrile. WBC 15 hemoglobin 13.5 platelet count 185,000 sodium 135 potassium 4.3 BUN 22 creatinine 0.8. Case management following patient, patient will need walker at discharge for difficulty with ambulation status post surgery and history of peripheral arterial disease of lower extremities. Exam General appearance: The patient is alert, oriented, appears in no acute distress. HET: Head is normocephalic and atraumatic. Pupils are equal and reactive. Neck: Supple. Heart: Regular. Lungs: Equal expansion, normal respiratory effort. Abdomen: Soft, nontender, nondistended. Extremities: Normal skin color and turgor. Left groin with Avis dressing intact. Left lower extremity medial calf with incision well-approximated with scant amount of serosanguineous drainage. Lower extremity pitting edema. Palpable DP pulse. Sensorimotor intact. Warm to the touch. Neurological: No focal deficits. Strength and sensation are grossly intact. Assessment 1. Left popliteal occlusion status post femoral to distal popliteal bypass with CryoVein 2. Peripheral arterial disease 3. History of of right femoral to popliteal bypass 4. Former smoker 5. Coronary artery disease Plan Encourage ambulation. May remove Prevena wound VAC prior to discharge. Compression stocking to left lower extremity. Discussed with patient when sitting to elevate lower extremity. Case management on consult for walker at home secondary to difficulty with ambulation postsurgery and history of peripheral arterial disease. Discharge instructions reviewed with patient. Plan for discharge home today. Follow-up with vascular surgery in 2 weeks. The impression and plan of care has been dictated as directed. Dr. Hicks I performed a history and examination of this patient, discussed the same with the dictator. I agree with the dictator's note ,documented as a scribe. Any additional findings or plans will be noted. Procedures: Procedure: Left femoral to distal popliteal bypass with CryoVein Patient Condition at Discharge: Stable Plan - Discharge Summary Discharge Rx Participant: No New Discharge Prescriptions: New HYDROcodone/APAP 5-325MG [[place] 5-325] 1 each PO Q4HR PRN #12 tab PRN Reason: Pain Scale 6 To 7 Continue Losartan [Cozaar] 50 mg PO QAM Aspirin [Adult Low Dose Aspirin EC] 81 mg PO QAM Atorvastatin [Lipitor] 80 mg PO HS Ezetimibe [Zetia] 10 mg PO HS Clopidogrel [Plavix] 75 mg PO DAILY tab Metoprolol Succinate (ER) [Toprol XL] 25 mg PO HS Discontinued Naproxen Sodium [Aleve] 220 mg PO BID PRN PRN Reason: Pain Discharge Medication List Aspirin [Adult Low Dose Aspirin EC] 81 mg PO QAM 03/19/18 [History] Losartan [Cozaar] 50 mg PO QAM 03/19/18 [History] Ezetimibe [Zetia] 10 mg PO HS 01/27/22 [History] Clopidogrel [Plavix] 75 mg PO DAILY tab 01/31/22 [Rx] Metoprolol Succinate (ER) [Toprol XL] 25 mg PO HS 03/20/22 [History] Atorvastatin [Lipitor] 80 mg PO HS 03/21/22 [History] HYDROcodone/APAP 5-325MG [[place] 5-325] 1 each PO Q4HR PRN #12 tab 06/18/24 [Rx] Follow up Appointment(s)/Referral(s): Lizz Hicks DO [STAFF PHYSICIAN] - 1 Week Patient Instructions/Handouts: Femoropopliteal Bypass (DC) Activity/Diet/Wound Care/Special Instructions: No driving until cleared by surgeon Avoid heavy lifting greater than 10 lbs , pushing, pulling, straining, flights of stairs until cleared by surgeon ok to shower tomorrow but no baths, pools, soaking in tubs until cleared by surgeon to avoid risk of infection. signs of infection ie: fever, rash, drainage from puncture site, swelling contact doctor or return to ER immediately. Heavy bleeding from incision site apply firm direct pressure and return to ER. Do not attempt to drive self. low sodium/low fat diet Monitor incision site for signs of infection including redness, drainage and fever 100.4 or higher Wear compression stocking to left lower extremity. Elevate lower extremities when sitting. Discharge Disposition: HOME SELF-CARE
[2024-06-18] MEDS: HYDROcodone/APAP 5-325MG 1 EACH TAB PO PRN (12:07)
[2024-06-18] MEDS ORDERED: METOPROLOL SUCCINATE (ER) 25 MG TAB.ER.24H PO SCH (21:00)
[2024-06-18] MEDS ORDERED: EZETIMIBE 10 MG TAB PO SCH (21:00)
== END 2024-06-18 12:43 | disposition home or self-care (01) | DRG 271 ==
LOC: 2ORMAIN 05:37 → 3SCARD 14:32
PROVIDERS: ADMIT Surgery; ATTEND Surgery
PROC: 04CL3ZZ Extirpation of Matter from Left Femoral Artery, Percutaneous Approach (ICD-10-PCS; 2024-06-17)
PROC: B44GZZZ Ultrasonography of Left Lower Extremity Arteries (ICD-10-PCS; 2024-06-17)
PROC: 041L0ZL Bypass Left Femoral Artery to Popliteal Artery, Open Approach (ICD-10-PCS; principal; 2024-06-17 07:30)
DX: E11.51 Type 2 diabetes mellitus with diabetic peripheral angiopathy without gangrene (principal); I13.0 Hypertensive heart and chronic kidney disease with heart failure and stage 1 through stage 4 chronic kidney disease, or unspecified chronic kidney disease; I70.222 Atherosclerosis of native arteries of extremities with rest pain, left leg; E11.22 Type 2 diabetes mellitus with diabetic chronic kidney disease; E78.5 Hyperlipidemia, unspecified; I71.40 Abdominal aortic aneurysm, without rupture, unspecified; I72.4 Aneurysm of artery of lower extremity; F17.210 Nicotine dependence, cigarettes, uncomplicated; I25.10 Atherosclerotic heart disease of native coronary artery without angina pectoris; I77.1 Stricture of artery; I25.2 Old myocardial infarction; I50.9 Heart failure, unspecified; N18.9 Chronic kidney disease, unspecified; Z79.02 Long term (current) use of antithrombotics/antiplatelets; Z79.82 Long term (current) use of aspirin; Z79.899 Other long term (current) drug therapy; Z86.79 Personal history of other diseases of the circulatory system; Z95.1 Presence of aortocoronary bypass graft; Z95.5 Presence of coronary angioplasty implant and graft; Z88.8 Allergy status to other drugs, medicaments and biological substances; M19.90 Unspecified osteoarthritis, unspecified site; Z86.718 Personal history of other venous thrombosis and embolism
CPT/HCPCS: 80048; 85027; 85610; 85730; 86850; 86900; 86901